=== PATIENT | male | born 1955 | race Caucasian/White ===

== ENCOUNTER 2018-11-17 00:19 | Emergency (ER) | payer OTHER ==
[2018-11-17 00:44] VITALS: TEMP 98.3; BMI 26.6
--- NOTE | 2018-11-17 00:52 | PDOC ---
Attending Attestation - Resident Resident Name: Lianet Cox - ED Attending Attestation I have performed the following: I have examined & evaluated the patient, The case was reviewed & discussed with the resident, I agree w/resident's findings & plan - HPI HPI: 11/17/18 02:14 see resident hpi - Physicial Exam PE: 11/17/18 02:14 GENERAL: Awake, in no acute distress HEAD: No signs of trauma EYES: ENT:clear without exudates. Moist mucosa NECK: Normal ROM, LUNGS:. end expiratory wheezing b/l with dim air entry HEART: Regular rate and rhythm, ABDOMEN: Soft, nondistended CHEST WALL: BACK: No midline tenderness. EXTREMITIES:. No erythema, or tenderness NEUROLOGICAL: Alert, SKIN: Warm, Dry - Medical Decision Making 11/17/18 02:16 63-year-old male with shortness of breath Exam suggestive of COPD exacerbation Patient offered labs, chest x-ray, nebulizer treatments as well as steroids Patient refused adamantly multiple times after multiple attempts were made by staff to insert IV and continue with care plan He will be signing out AGAINST MEDICAL ADVICE, he is awake alert oriented times foreign able to communicate his needs He is currently ambulating around the nurse's station asking where the soda machine is
--- NOTE | 2018-11-17 01:00 | PDOC ---
History of Present Illness - General Chief Complaint: Shortness of Breath Stated Complaint: DIFFICULTY BREATHING Time Seen by Provider: 11/17/18 00:43 - History of Present Illness Initial Comments: 11/17/18 02:37 63yo undomiciled M hx COPD and smoking noncompliant with medications presents c/ o acute on chronic shortness of breath. Pt states he's on advair and nebulizers but ran out of all his medications a while ago. Pt states he recently moved to the area and is staying in a [facility]. Denies PCP. Pt states he was in another hospital 2 months ago admitted for bronchitis for a few days and treated for bronchitis with antibiotics and prednisone, which he completed, but he never felt better. Pt c/o continued shortness of breath and wheezing since then, unchanged, worse with coughing. Then 2 days ago pt states he developed a cough productive of green phlegm and mucus, no blood, that's become worse so pt came in. Pt wants steroids, antibiotics, and all his nebulizers. Denies fever, chills , fatigue, headache, dizziness, numbness/tingling, weakness, vision changes, chest pain, palpitations, leg swelling, abdominal pain, blood in stool, diarrhea , constipation, nausea, vomiting, dysuria, hematuria, confusion. Past History - Past Medical History Allergies/Adverse Reactions: Allergies Allergy/AdvReac Type Severity Reaction Status Date / Time Penicillins Allergy Severe Hives Verified 11/17/18 00:39 morphine Allergy Intermediate Vomiting Verified 11/17/18 00:39 Home Medications: Ambulatory Orders Albuterol Sulfate [Proair Hfa -] 1 - 2 inh PO TID PRN 08/18/12 Allopurinol [Zyloprim -] 100 mg PO BID 08/18/12 Divalproex [Depakote -] 500 mg PO DAILY 08/18/12 Perphenazine 8 mg PO HS 08/18/12 Aspirin 81 mg PO DAILY 08/19/12 Divalproex [Depakote -] 1,000 mg PO HS 08/19/12 Esomeprazole Mag Trihydrate [Nexium] 20 mg PO DAILY 08/19/12 Oxycodone HCl/Acetaminophen [Percocet 5-325 mg Tablet] 1 - 2 tab PO PRN PRN #0 tablet 08/19/12 Salmeterol/Fluticasone [Advair 500Mcg/50Mcg -] 1 inh IH DAILY 08/19/12 Tiotropium [place] [Spiriva] 1 inh IH DAILY 08/19/12 Anemia: No Asthma: Yes Cancer: No Cardiac Disorders: No CVA: No COPD: Yes CHF: No Dementia: No Diabetes: No GI Disorders: No Disorders: No HTN: No Hypercholesterolemia: No Liver Disease: No Seizures: No Thyroid Disease: No - Surgical History Abdominal Surgery: No Cardiac Surgery: No Cholecystectomy: No Lung Surgery: No Neurologic Surgery: No Orthopedic Surgery: No - Suicide/Smoking/Psychosocial Hx Smoking History: Current every day smoker Have you smoked in the past 12 months: Yes Number of Cigarettes Smoked Daily: 20 Cigars Per Day: 3 Information on smoking cessation initiated: No 'Breaking Loose' booklet given: 08/19/12 Hx Alcohol Use: No Drug/Substance Use Hx: No Substance Use Type: None Hx Substance Use Treatment: No Review of Systems - Review of Systems Comments:: 11/17/18 02:37 Constitutional: Negative for chills, fever, fatigue. HENT: Negative for sore throat, rhinorrhea, congestion. Eyes: Negative for visual disturbance. Respiratory: Positive for shortness of breath, cough, and wheezing. Cardiovascular: Negative for chest pain, palpitations, and leg swelling. Gastrointestinal: Negative for abdominal pain, blood in stool, constipation, diarrhea, nausea, and vomiting. Genitourinary: Negative for dysuria, flank pain, and hematuria. Musculoskeletal: Negative for myalgias, back pain, and neck pain. Skin: Negative for rash. Neurological: Negative for light-headedness, dizziness, syncope, weakness, numbness and headaches. Psychiatric/Behavioral: Negative for behavioral problems and confusion. *Physical Exam - Vital Signs Last Vital Signs Temp Pulse Resp BP Pulse Ox 98.3 F 102 H 20 118/71 98 11/17/18 00:39 11/17/18 00:39 11/17/18 00:39 11/17/18 00:39 11/17/18 00:39 - Physical Exam Comments: 11/17/18 02:37 Gen: Alert, NAD, comfortable-appearing HEENT: PERRL, EOMI, MMM, NCAT. No conjunctival pallor. Sclera are non-icteric. CV: Regular rate and rhythm. No murmurs, rubs, or gallops. PULM: No resp distress. +b/l end-expiratory wheezing, no crackles or rales. ABD: soft, NT/ND, no rebound tenderness or guarding, no CVA tenderness. BACK: No TTP of c/t/l-spine. No step-offs or deformities. MSK: No bony deformities. 2+ pulses in all extremities. NEURO: AAOx3. PERRL. No gross CN deficits. Strength and sensation grossly intact throughout. EXTREMITIES: No cyanosis. No clubbing. No edema. No calf tenderness. PSYCH: Normal mood and thought pattern. SKIN: Warm and dry. Normal capillary refill. No rashes. No jaundice. Heart Score/ECG Review - ECG Impressions Comment:: 11/17/18 02:25 0040: NSR, 99bpm, QTc 464ms, VA interval 148ms, QRS duration 108ms, LAD, no TWIs , no ST elevations or depression, +Q waves in leads II/III. No significant changes compared to 07/13/12. Medical Decision Making - Medical Decision Making 11/17/18 02:37 63yo undomiciled M hx COPD and smoking noncompliant with medications presents with acute on chronic shortness of breath and wheezing, and 2 days of productive cough. Per pt, last hospitalization 2 months ago for bronchitis, treated with abx and prednisone. Hemodynamically stable, tachycardic to 102, afebrile, end-expiratory wheezing on exam. High concern for COPD exacerbation due to wheezing and hx - nebulizers, steroids, labs, CXR. Also concern for PNA due to productive cough, though no crackles on exam - r/o with CXR and labs. Lower concern for ACS/AL or CHF due to lack of hx of cardiac issues and lack of chest pain, but r/o with EKG, cardiac profile, and BNP. Pre-trop HEART score 2 ( age and smoking). Very low concern for PE due to hx, lack of CP, and Wheezing, Wells 0, PERC not neg due to age - no further testing indicated at this time, but if everything else negative, reconsider. -Duonebs -Methylprednisone -EKG -CXR -CBC, CMP, Cardiac profile, BNP -Dispo: pending w/u and reassessment IV attempted multiple times by nursing staff. Pt refuses any more IVs. I spoke with pt about importance of tests and he agreed to let me try. Attempted IV but pt moved and came out. Pt refused any more attempts. Pt refuses any more IV attempts or x-ray or treatments here. Pt refusing care, including drawing blood and chest x-ray. Discussion at the bedside with patient. Pt has capacity to make medical decisions. I believe this patient is of sound mind and competent to refuse medical care. The patient is responding and asking questions appropriately. The patient is oriented to person , place and time. The patient is not psychotic, delusional, suicidal, homicidal or hallucinating. The patient demonstrates a normal mental capacity to make decisions regarding their healthcare. The patient is clinically sober and does not appear to be under the influence of any illicit drugs at this time. The patient has been advised of the risks, in layman terms, of leaving AMA which include, but are not limited to cardiac arrest, severe infection, blood stream infection, dehydration, bleeding, liver failure, myocardial infarction, arrhythmia, stroke, carotid stenosis/aneurysm/dissection, pulmonary embolism, respiratory failure, delay in diagnosis and management, loss of current lifestyle, loss of functional status, multiorgan failure, coma, severe disability and . Alternatives have been offered - the patient remains steadfast in their wish to leave. The patient has been advised that should they change their mind they are welcome to return to this hospital, or any other, at any time. The patient understands that in no way does an AMA discharge mean that I do not want them to have the best medical care available. To this end, I have provided appropriate referrals and discharge instructions. The patient did sign AMA paperwork. The above discussion was witnessed by another member of staff, BLAKE Handy. *DC/Admit/Observation/Transfer Diagnosis at time of Disposition: COPD exacerbation - Discharge Dispostion Disposition: AGAINST MEDICAL ADVICE Condition at time of disposition: Stable Decision to Admit order: No - Referrals Referrals: [facility] [place] [Provider Group] - Patient Instructions Printed Discharge Instructions: DI for Chronic Obstructive Pulmonary Disease Additional Instructions: You have been seen in the Emergency Department for your cough. We need to do a chest X-ray and take blood to properly evaluation your condition. We have discussed this with you but you want to leave against medical advice (AMA) prior to proper evaluation, diagnosis, and treatment. You have capacity to make medical decisions. I believe you are of sound mind and competent to refuse medical care. You are responding and asking questions appropriately. You are oriented to person, place and time. You are not psychotic, delusional, suicidal , homicidal or hallucinating. You demonstrate a normal mental capacity to make decisions regarding your healthcare. You are clinically sober and do not appear to be under the influence of any illicit drugs at this time. You have been advised of the risks, in layman terms, of leaving AMA which include, but are not limited to worsening of your COPD, cardiac arrest (heart stopping), respiratory failure (lungs stopping/stopping breathing), severe infection, blood stream infection, dehydration, bleeding, liver failure, myocardial infarction (heart attack), arrhythmia (abnormal heart rhythm), stroke, carotid stenosis/aneurysm/dissection, pulmonary embolism (clot in your lungs), delay in diagnosis and management, loss of current lifestyle, loss of functional status, multiorgan failure, coma, severe disability and . Alternatives have been offered - you remain steadfast in your wish to leave. You have been advised that should you change your mind you are welcome to return to this hospital, or any other, at any time. You understand that in no way does an AMA discharge mean that I do not want you to have the best medical care available. To this end , I have provided appropriate prescriptions, referrals, and discharge instructions. You did sign AMA paperwork. We have given you a referral to a primary care clinic - call them to set up an appointment with a primary care doctor within 1 week. Return to the ED immediately if you want to complete your evaluation or if you experience chest pain, difficulty breathing, dizziness, fainting, fever, coughing up blood, or any other new or worsening symptom. - Post Discharge Activity
[2018-11-17] MEDS ORDERED: methylPREDNISolone NA SUCC 125 MG/2 ML VIAL IVPB ONE (01:08)
[2018-11-17] MEDS ORDERED: ALBUTEROL SO4 2.5/IPRATROPIUM 0.5 INH SOL 3 ML VIAL.NEB. NEB ONE (01:08)
[2018-11-17] MEDS ORDERED: IPRATROPIUM BR 0.02% 0.5 MG/2.5 ML VIAL.NEB. NEB ONE (01:13)
[2018-11-17] MEDS ORDERED: methylPREDNISolone NA SUCC 40 MG/1 ML VIAL ONE (01:13)
[2018-11-17] MEDS ORDERED: ALBUTEROL SO4 0.083% IH SOL 2.5 MG/3 ML VIAL.NEB. NEB ONE (01:13)
[2018-11-17 02:07] VITALS: BP 123/88; PULSE 95
--- NOTE | 2018-11-17 12:43 | EKG ---
Test Reason : Blood Pressure : / mmHG Vent. Rate : 099 BPM Atrial Rate : 099 BPM P-R Int : 148 ms QRS Dur : 108 ms QT Int : 362 ms P-R-T Axes : 054 -68 087 degrees QTc Int : 464 ms NORMAL SINUS RHYTHM LEFT AXIS DEVIATION INFERIOR INFARCT , AGE UNDETERMINED ANTERIOR INFARCT , AGE UNDETERMINED ABNORMAL ECG NO PREVIOUS ECGS AVAILABLE Confirmed by Darron Stewart MD ([id number]) on 11/17/2018 12:42:48 PM Referred By: Confirmed By:Darron Stewart MD
== END 2018-11-17 02:37 | disposition left against medical advice (07) ==
LOC: JER 00:19
PROC: 3E0F7GC Introduction of Other Therapeutic Substance into Respiratory Tract, Via Natural or Artificial Opening (ICD-10-PCS; principal; 2018-11-17)
DX: J44.1 Chronic obstructive pulmonary disease with (acute) exacerbation (principal)
CPT/HCPCS: 93005; 93010; 94640; 99282-25

== ENCOUNTER 2018-11-24 12:04 | Emergency (ER) | payer OTHER ==
[2018-11-24 12:31] VITALS: BP 111/60; PULSE 75; TEMP 98.6; BMI 22.4
--- NOTE | 2018-11-24 13:01 | PDOC ---
History of Present Illness - General Chief Complaint: Cold Symptoms Stated Complaint: COUGH/ABD PAIN LWR RT QUAD X 4 WKS Time Seen by Provider: 11/24/18 12:58 History Source: Patient - History of Present Illness Timing/Duration: reports: other Associated Symptoms: reports: cough Past History - Past Medical History Allergies/Adverse Reactions: Allergies Allergy/AdvReac Type Severity Reaction Status Date / Time Penicillins Allergy Severe Hives Verified 11/24/18 12:31 morphine Allergy Intermediate Vomiting Verified 11/24/18 12:31 Home Medications: Ambulatory Orders Albuterol Sulfate [Proair Hfa -] 1 - 2 inh PO TID PRN 08/18/12 Allopurinol [Zyloprim -] 100 mg PO BID 08/18/12 Divalproex [Depakote -] 500 mg PO DAILY 08/18/12 Perphenazine 8 mg PO HS 08/18/12 Aspirin 81 mg PO DAILY 08/19/12 Divalproex [Depakote -] 1,000 mg PO HS 08/19/12 Esomeprazole Mag Trihydrate [Nexium] 20 mg PO DAILY 08/19/12 Oxycodone HCl/Acetaminophen [Percocet 5-325 mg Tablet] 1 - 2 tab PO PRN PRN #0 tablet 08/19/12 Salmeterol/Fluticasone [Advair 500Mcg/50Mcg -] 1 inh IH DAILY 08/19/12 Tiotropium [place] [Spiriva] 1 inh IH DAILY 08/19/12 Anemia: No Asthma: Yes Cancer: No Cardiac Disorders: No CVA: No COPD: Yes CHF: No Dementia: No Diabetes: No GI Disorders: No Disorders: No HTN: No Hypercholesterolemia: No Liver Disease: No Seizures: No Thyroid Disease: No - Surgical History Abdominal Surgery: No Cardiac Surgery: No Cholecystectomy: No Lung Surgery: No Neurologic Surgery: No Orthopedic Surgery: No - Suicide/Smoking/Psychosocial Hx Smoking History: Never smoked Have you smoked in the past 12 months: No Number of Cigarettes Smoked Daily: 20 Cigars Per Day: 3 Information on smoking cessation initiated: No 'Breaking Loose' booklet given: 08/19/12 Hx Alcohol Use: No Drug/Substance Use Hx: No Substance Use Type: None Hx Substance Use Treatment: No Review of Systems - Review of Systems Constitutional: No: Chills, Fever Respiratory: Yes: Cough. No: Shortness of Breath, Wheezing Cardiac (ROS): No: Chest Pain ABD/GI: No: Blood Streaked Bowels, Constipated, Diarrhea, Nausea, Rectal Bleeding, Vomiting, Abdominal cramping : No: Dysuria *Physical Exam - Vital Signs Last Vital Signs Temp Pulse Resp BP Pulse Ox 98.6 F 75 16 111/60 98 11/24/18 12:21 11/24/18 12:21 11/24/18 12:21 11/24/18 12:21 11/24/18 12:21 - Physical Exam General Appearance: Yes: Appropriately Dressed. No: Apparent Distress HEENT: positive: Normal Voice Neck: positive: Supple Respiratory/Chest: positive: Lungs Clear, Normal Breath Sounds. negative: Respiratory Distress Cardiovascular: positive: Regular Rate, S1, S2 Gastrointestinal/Abdominal: positive: Soft. negative: Tender Integumentary: positive: Dry, Warm Neurologic: positive: Fully Oriented, Alert, Normal Mood/Affect ED Treatment Course - LABORATORY CBC & Chemistry Diagram: 11/24/18 13:30 11/24/18 13:30 Medical Decision Making - Medical Decision Making 0 11/17/18 02:37 63 her old male, history of COPD, not on oxygen, still smokes, non-compliant with follow up, anemia, no h/o blood transfusion, here with cough. Patient states for the past 8 months have had a mostly nonproductive cough and that for the past week has severe right-sided abd pain only when he coughs. Denies any hemoptysis, acute shortness of breath, chest tightness, wheezing, fever, chills or edema. Pt was seen in ED a week ago for shortness of breath and wheezing but refused care, including blood draw and chest x-ray, signed out AMA. Here because pain persists. Patient refuses any nebulizers today. States he uses several pumps at home including Advair and that they do not work. Patient has a power truck driver in [facility] who he no longer wants to see as he is unhappy with care because, as per patient "He told me to quit smoking". Patient adamant that he does not wants a power truck driver. Currently does not have a PMD, but looking to get new doctor in [place] See exam Chronic cough, now w/ abd pain only w/ cough H/o COPD, not on oxygen No acute sob/wheezing/CP, f/c Refused care in ED 11/17 Stable w/ clear chest/lungs and benign abd here -consent to labs/CXR -declines nebulizer here 11/24/18 13:52 Pt walked out to ED while waiting for labs and prior to discharge papers. Of note, CXR w/ no acute findings. *DC/Admit/Observation/Transfer Diagnosis at time of Disposition: Chronic cough - Discharge Dispostion Disposition: ELOPED - Referrals - Patient Instructions Additional Instructions: Your CXR did not show any acute findings today but there an an unclear finding in your right upper lung and you should strongly consider smoking cessation and following up with a power truck driver who your refuse referral for today. You also refused referral for a primary care doctor, please find a primary care physician to follow with Please know the ED at any point to continue care - Post Discharge Activity
[2018-11-24] MEDS ORDERED: KETOROLAC TROMETHAMINE 60 MG/2 ML VIAL IM ONE (13:09)
[2018-11-24] MEDS ORDERED: predniSONE 20 MG TABLET (UD) PO ONE (13:09)
[2018-11-24] MEDS ORDERED: KETOROLAC TROMETHAMINE 60 MG/2 ML VIAL ONE (13:22)
[2018-11-24] MEDS ORDERED: predniSONE 20 MG TABLET (UD) ONE (13:22)
[2018-11-24 14:01] LABS: BASO % 0.1 % (0-2.0); HEMATOCRIT 27.2 % (35.4-49); MCH 33.1 pg (25.7-33.7); MCHC 32.9 g/dl (32.0-35.9); MEAN CELL VOLUME 100.5 fl (80-96); MEAN PLT VOLUME 8.5 fl (7.5-11.1); MONO % 6.4 % (3.8-10.2); NEUT % 78.5 % (42.8-82.8); PLATELET COUNT 293 K/MM3 (134-434); RBC 2.71 M/mm3 (4.00-5.60); RDW 16.1 % (11.9-15.9); WHITE BLOOD COUNT 9.3 K/mm3 (4.0-10.0)
[2018-11-24 14:39] LABS: ALBUMIN 2.6 g/dl (3.4-5.0); BILIRUBIN,TOTAL 0.3 mg/dL (0.2-1); BLOOD UREA NITROGEN 16.7 mg/dL (7-18); CALCIUM 8.2 mg/dL (8.5-10.1); CREATININE 2.4 mg/dL (0.55-1.3); POTASSIUM 3.7 mmol/L (3.5-5.1); TOT PROT 5.6 g/dl (6.4-8.2)
== END 2018-11-24 14:45 | disposition home or self-care (01) ==
LOC: JER 12:04
PROC: 3E0233Z Introduction of Anti-inflammatory into Muscle, Percutaneous Approach (ICD-10-PCS; principal; 2018-11-24)
DX: R05 Cough (principal); J44.9 Chronic obstructive pulmonary disease, unspecified; D64.9 Anemia, unspecified; F17.210 Nicotine dependence, cigarettes, uncomplicated
CPT/HCPCS: 36415; 71046-TC-FY; 80053; 85025; 96372; 99282-25

== ENCOUNTER 2019-03-12 12:03 | Emergency (ER) | payer OTHER ==
[2019-03-12 12:12] VITALS: BP 136/81; PULSE 98; TEMP 98; BMI 21.1
[2019-03-12] MEDS ORDERED: KETOROLAC TROMETHAMINE 30 MG/1 ML VIAL IM ONE (13:13)
--- NOTE | 2019-03-12 13:13 | PDOC ---
History of Present Illness - General Chief Complaint: Pain Stated Complaint: LT GROIN PAIN Time Seen by Provider: 03/12/19 12:46 - History of Present Illness Initial Comments: 03/12/19 13:08 CHIEF COMPLAINT: groin pain HISTORY OF PRESENT ILLNESS: 63 yo M with hx of COPD and L groin hernia presents to ED with left groin pain x months. Patient reports that he was discharged from [facility] this morning for COPD exacerbation and he "walked from [place] to [place]" and now feels pain to his groin again. He states he has been evaluated by "like six different hospitals in [place] for my groin pain and they all say it's a hernia, I'm in the process my money together" for the inguinal hernia repair he has scheduled in March. He denies any skin changes to left groin and states he is fully ambulatory and just came to the hospital because "I couldn't walk anymore, so I want to get a Medicab to get to where I need to go tonight." No recent travel or sick contacts. PAST MEDICAL HISTORY: Denies past medical history FAMILY HISTORY: Denies SOCIAL HISTORY: Denies tobacco, alcohol, illicit drug use. SURGICAL HISTORY: Denies ALLERGIES: No known drug allergies REVIEW OF SYSTEMS General/Constitutional: Denies fever or chills. Denies weakness, weight change. HEENT: Denies change in vision. Denies ear pain or discharge. Denies sore throat. Cardiovascular: Denies chest pain or shortness of breath. Respiratory: Denies cough, wheezing, or hemoptysis. Gastrointestinal: Denies nausea, vomiting, diarrhea or constipation. Denies rectal bleeding. Genitourinary: Chronic left groin pain secondary to inguinal hernia. Denies dysuria, frequency, or change in urination. Musculoskeletal: Denies joint or muscle swelling or pain. Denies neck or back pain. Skin and breasts: Denies rash or easy bruising. Neurologic: Denies headache, vertigo, loss of consciousness, or loss of sensation. Psychiatric: Denies depression or anxiety. PHYSICAL EXAM General Appearance: Well-appearing, appropriately dressed. No apparent distress , no intoxication. HEENT: EOMI, PERRLA, normal ENT inspection, normal voice, TMs normal, pharynx normal. No conjunctival pallor. No photophobia, scleral icterus. Neck: Supple. Trachea midline. No tenderness, rigidity, carotid bruit, stridor , lymphadenopathy, or thyromegaly. Respiratory/Chest: Lungs CTAB. No shortness of breath, chest tenderness, respiratory distress, accessory muscle use. No crackles, rales, rhonchi, stridor , wheezing, dullness Cardiovascular: RRR. S1, S2. No JVD, murmur, bradycardia, tachycardia. Gastrointestinal/Abdominal: Normal bowel sounds. Abdomen soft, non-distended. No tenderness or rebound tenderness. No organomegaly, pulsatile mass, guarding , hernia, hepatomegaly, splenomegaly. Lymphatic: No adenopathy, tenderness. Musculoskeletal/Extremities: Normal inspection. FROM of all extremities, normal capillary refill. Pelvis Stable. No CVA tenderness. No tenderness to extremities, pedal edema, swelling, erythema or deformity. Integumentary: Appropriate color, dry, warm. No cyanosis, erythema, jaundice or rash Neurologic: transit coach operator II-XII intact. Fully oriented, alert. Appropriate mood/affect. Motor strength 5/5. No appreciable EOM palsy, facial droop or sensory deficit. Past History - Past Medical History Allergies/Adverse Reactions: Allergies Allergy/AdvReac Type Severity Reaction Status Date / Time Penicillins Allergy Severe Hives Verified 03/12/19 12:12 morphine Allergy Intermediate Vomiting Verified 03/12/19 12:12 Home Medications: Ambulatory Orders Albuterol Sulfate [Proair Hfa -] 1 - 2 inh PO TID PRN 08/18/12 Allopurinol [Zyloprim -] 100 mg PO BID 08/18/12 Divalproex [Depakote -] 500 mg PO DAILY 08/18/12 Perphenazine 8 mg PO HS 08/18/12 Aspirin 81 mg PO DAILY 08/19/12 Divalproex [Depakote -] 1,000 mg PO HS 08/19/12 Esomeprazole Mag Trihydrate [Nexium] 20 mg PO DAILY 08/19/12 Oxycodone HCl/Acetaminophen [Percocet 5-325 mg Tablet] 1 - 2 tab PO PRN PRN #0 tablet 08/19/12 Salmeterol/Fluticasone [Advair 500Mcg/50Mcg -] 1 inh IH DAILY 08/19/12 Tiotropium [place] [Spiriva] 1 inh IH DAILY 08/19/12 Anemia: No Asthma: Yes Cancer: No Cardiac Disorders: No CVA: No COPD: Yes CHF: No Dementia: No Diabetes: No GI Disorders: No Disorders: No HTN: No Hypercholesterolemia: No Liver Disease: No Seizures: No Thyroid Disease: No Other medical history: PROSTATE - Surgical History Abdominal Surgery: No Cardiac Surgery: No Cholecystectomy: No Lung Surgery: No Neurologic Surgery: No Orthopedic Surgery: No - Psycho Social/Smoking Cessation Hx Smoking History: Never smoked Have you smoked in the past 12 months: No Number of Cigarettes Smoked Daily: 20 Cigars Per Day: 3 'Breaking Loose' booklet given: 08/19/12 Hx Alcohol Use: No Drug/Substance Use Hx: No Substance Use Type: None Hx Substance Use Treatment: No *Physical Exam - Vital Signs Last Vital Signs Temp Pulse Resp BP Pulse Ox 98 F 98 H 18 136/81 100 03/12/19 12:07 03/12/19 12:07 03/12/19 12:07 03/12/19 12:07 03/12/19 12:07 Medical Decision Making - Medical Decision Making 03/12/19 13:44 63 yo M with hx of COPD and L groin hernia presents to ED with left groin pain x months. -Toradol Advised to follow up with PCP and to keep inguinal hernia repair appt as scheduled. Advised patient of signs and symptoms for return to ED. Patient verbalized understanding and agrees to plan. Discharge - Discharge Information Problems reviewed: Yes Clinical Impression/Diagnosis: Groin pain, chronic, left Condition: Stable Disposition: HOME - Admission No - Follow up/Referral Referrals: Cherry Newton MD [Primary Care Provider] - - Patient Discharge Instructions Patient Printed Discharge Instructions: DI for Groin Hernia - Post Discharge Activity
[2019-03-12] MEDS ORDERED: KETOROLAC TROMETHAMINE 30 MG/1 ML VIAL ONE (13:14)
== END 2019-03-12 14:06 | disposition home or self-care (01) ==
LOC: JER 12:03
PROC: 3E0233Z Introduction of Anti-inflammatory into Muscle, Percutaneous Approach (ICD-10-PCS; principal; 2019-03-12)
DX: K40.90 Unilateral inguinal hernia, without obstruction or gangrene, not specified as recurrent (principal); R10.32 Left lower quadrant pain; J44.9 Chronic obstructive pulmonary disease, unspecified; J45.998 Other asthma; Z85.46 Personal history of malignant neoplasm of prostate; Z88.0 Allergy status to penicillin; Z88.5 Allergy status to narcotic agent
CPT/HCPCS: 96372; 99281-25

== ENCOUNTER 2019-04-18 15:45 | Emergency (ER) | payer OTHER ==
[2019-04-18 15:58] VITALS: BMI 23.0
--- NOTE | 2019-04-18 16:24 | PDOC ---
History of Present Illness - General Chief Complaint: Pain Stated Complaint: PAIN Time Seen by Provider: 04/18/19 16:23 History Source: Patient Exam Limitations: No Limitations - History of Present Illness Initial Comments: 04/18/19 16:25 63 yo M with PMHx COPD, CKD, gout, L inguinal hernia (last 1.5yrs) presenting w SOB and intermittent L groin pain worse w exertion. Scheduled pre-op clearance for hernia repair on 04/18/19. Ran out of money for meds, has not been taking any meds. Denies fever, chest pain, penile discharge/bleeding, urinary frequency, pyuria, diarrhea. Past History - Past Medical History Allergies/Adverse Reactions: Allergies Allergy/AdvReac Type Severity Reaction Status Date / Time Penicillins Allergy Severe Hives Verified 04/18/19 15:59 morphine Allergy Intermediate Vomiting Verified 04/18/19 15:59 Home Medications: Ambulatory Orders Albuterol Sulfate [Proair Hfa -] 1 - 2 inh PO TID PRN 08/18/12 Allopurinol [Zyloprim -] 100 mg PO BID 08/18/12 Divalproex [Depakote -] 500 mg PO DAILY 08/18/12 Perphenazine 8 mg PO HS 08/18/12 Aspirin 81 mg PO DAILY 08/19/12 Divalproex [Depakote -] 1,000 mg PO HS 08/19/12 Esomeprazole Mag Trihydrate [Nexium] 20 mg PO DAILY 08/19/12 Oxycodone HCl/Acetaminophen [Percocet 5-325 mg Tablet] 1 - 2 tab PO PRN PRN #0 tablet 08/19/12 Salmeterol/Fluticasone [Advair 500Mcg/50Mcg -] 1 inh IH DAILY 08/19/12 Tiotropium [place] [Spiriva] 1 inh IH DAILY 08/19/12 Anemia: No Asthma: Yes Cancer: No Cardiac Disorders: No CVA: No COPD: Yes CHF: No Dementia: No Diabetes: No GI Disorders: No Disorders: No HTN: No Hypercholesterolemia: No Liver Disease: No Seizures: No Thyroid Disease: No - Surgical History Abdominal Surgery: No Cardiac Surgery: No Cholecystectomy: No Lung Surgery: No Neurologic Surgery: No Orthopedic Surgery: No - Psycho Social/Smoking Cessation Hx Smoking History: Current every day smoker Have you smoked in the past 12 months: No Number of Cigarettes Smoked Daily: 20 Cigars Per Day: 3 Information on smoking cessation initiated: No 'Breaking Loose' booklet given: 08/19/12 Hx Alcohol Use: No Drug/Substance Use Hx: No Substance Use Type: None Hx Substance Use Treatment: No Review of Systems - Review of Systems Constitutional: No: Chills, Fever HEENTM: No: Eye Pain, Nose Pain, Throat Pain Respiratory: Yes: Shortness of Breath, Wheezing. No: Cough Cardiac (ROS): No: Chest Pain, Palpitations ABD/GI: No: Abdominal Distended, Constipated, Diarrhea, Nausea, Vomiting : Yes: Other (groin mass). No: Burning, Dysuria, Discharge, Testicular Mass Musculoskeletal: No: Back Pain, Joint Pain Integumentary: No: Bruising, Flushing Neurological: No: Headache, Seizure, Tingling Psychiatric: No: Anxiety, Depression Endocrine: No: Intolerance to Cold, Intolerance to Heat Hematologic/Lymphatic: No: Anemia, Blood Clots *Physical Exam - Vital Signs Last Vital Signs Temp Pulse Resp BP Pulse Ox 98.3 F 97 H 18 132/67 97 04/18/19 15:56 04/18/19 15:56 04/18/19 15:56 04/18/19 15:56 04/18/19 15:56 - Physical Exam General Appearance: Yes: Nourished, Appropriately Dressed. No: Apparent Distress HEENT: positive: EOMI, LEIGH, Normal Voice, Hearing Grossly Normal. negative: Scleral Icterus (R), Scleral Icterus (L) Respiratory/Chest: positive: Wheezing. negative: Chest Tender, Respiratory Distress, Crackles, Rales, Rhonchi, Stridor Cardiovascular: positive: Regular Rhythm, Regular Rate, S1, S2 Gastrointestinal/Abdominal: positive: Normal Bowel Sounds, Flat, Soft. negative : Tender, Organomegaly Male Genitalia: positive: normal genitalia, inguinal hernia (L hernia, reduceable). negative: discharge, testicular mass, hematuria Musculoskeletal: negative: CVA Tenderness (R), CVA Tenderness (L) Extremity: positive: Normal Capillary Refill Integumentary: positive: Normal Color Neurologic: positive: cutter tender II-XII NML intact, Fully Oriented, Alert, Normal Mood/ Affect, Normal Response, Responsive. negative: Sensory Deficit, Confused, Disoriented Medical Decision Making - Medical Decision Making 04/18/19 17:08 CXR no acute pathology, unchanged chronic RUL opacitis --- 63 yo M with PMHx COPD, CKD, gout, L inguinal hernia (last 1.5yrs) presenting w SOB and intermittent L groin pain worse w exertion. SOB d/t COPD exacerbation (wheezing). Inguinal hernia not obstructed or strangulated. Low concern for PNA (no acute consolidation/infiltrates) Given duoneb x4, decadron, tylenol DC home Discharge - Discharge Information Problems reviewed: Yes Clinical Impression/Diagnosis: COPD exacerbation Inguinal hernia Qualifiers: Obstruction and gangrene presence: without obstruction or gangrene Laterality: unilateral Recurrence: recurrent Qualified Code(s): K40.91 - Unilateral inguinal hernia, without obstruction or gangrene, recurrent Condition: Improved Disposition: HOME - Follow up/Referral Referrals: Cherry Newton MD [Primary Care Provider] - - Patient Discharge Instructions Patient Printed Discharge Instructions: DI for Chronic Obstructive Pulmonary Disease Additional Instructions: Follow up with your primary care doctor. Take tylenol if you have pain - Post Discharge Activity
[2019-04-18] MEDS ORDERED: DEXAMETHASONE SOD PHOSPHATE 10 MG/1 ML VIAL IM ONE (17:03)
[2019-04-18] MEDS ORDERED: ACETAMINOPHEN 500 MG TABLET (FP) PO ONE (17:03)
[2019-04-18] MEDS ORDERED: ALBUTEROL SO4 2.5/IPRATROPIUM 0.5 INH SOL 3 ML VIAL.NEB. NEB ONE ×3 (17:05→17:23)
[2019-04-18] MEDS ORDERED: ACETAMINOPHEN 325 MG TABLET (FP) ONE (17:05)
[2019-04-18] MEDS ORDERED: DEXAMETHASONE SOD PHOSPHATE 10 MG/1 ML VIAL ONE (17:06)
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
[2019-04-18] MEDS ORDERED: DEXAMETHASONE 4 MG TABLET (FP) PO ONE (17:30)
[2019-04-18 18:50] VITALS: BP 133/76; PULSE 68; TEMP 98.5
[2019-04-18] MEDS ORDERED: ALBUTEROL SO4 2.5/IPRATROPIUM 0.5 INH SOL 3 ML VIAL.NEB. NEB SCH (20:00)
== END 2019-04-18 18:49 | disposition home or self-care (01) ==
LOC: SUPCPDRO 15:45 → JER 15:45
PROC: 3E0F7GC Introduction of Other Therapeutic Substance into Respiratory Tract, Via Natural or Artificial Opening (ICD-10-PCS; principal; 2019-04-18)
DX: J44.1 Chronic obstructive pulmonary disease with (acute) exacerbation (principal); K40.91 Unilateral inguinal hernia, without obstruction or gangrene, recurrent; J45.909 Unspecified asthma, uncomplicated; M10.9 Gout, unspecified; N18.9 Chronic kidney disease, unspecified; Z88.0 Allergy status to penicillin; Z88.5 Allergy status to narcotic agent; F17.210 Nicotine dependence, cigarettes, uncomplicated
CPT/HCPCS: 71046-TC-FY; 94640; 99281-25

== ENCOUNTER 2019-04-21 08:43 | Emergency (ER) | payer OTHER ==
[2019-04-21 08:51] VITALS: BP 139/76; TEMP 97.7; BMI 22.7
--- NOTE | 2019-04-21 09:10 | PDOC ---
*Physical Exam - Vital Signs Last Vital Signs Temp Pulse Resp BP Pulse Ox 97.7 F 104 H 32 H 139/76 99 04/21/19 08:46 04/21/19 08:46 04/21/19 08:46 04/21/19 08:46 04/21/19 08:46 - Physical Exam 04/21/19 09:10 The patient was examined by [ZACHARIAH Rasmussen] under my direct supervision. I personally evaluated the patient. I concur with the above findings and the plan of care. Discharge - Discharge Information Problems reviewed: Yes Clinical Impression/Diagnosis: COPD (chronic obstructive pulmonary disease) Qualifiers: COPD type: unspecified COPD Qualified Code(s): J44.9 - Chronic obstructive pulmonary disease, unspecified Condition: Improved Disposition: HOME - Follow up/Referral Referrals: Cherry Newton MD [Primary Care Provider] - - Patient Discharge Instructions Patient Printed Discharge Instructions: DI for Chronic Obstructive Pulmonary Disease Additional Instructions: Your insurance company and find participating surgeons. I also recommend continue your medication that was prescribed to you yesterday for your COPD exacerbation. - Post Discharge Activity
[2019-04-21] MEDS ORDERED: ALBUTEROL SO4 2.5/IPRATROPIUM 0.5 INH SOL 3 ML VIAL.NEB. NEB ONE ×2 (09:47→09:59)
[2019-04-21] MEDS ORDERED: KETOROLAC TROMETHAMINE 60 MG/2 ML VIAL IM ONE (09:50)
--- NOTE | 2019-04-21 09:54 | PDOC ---
History of Present Illness - General Chief Complaint: Shortness of Breath Stated Complaint: SOB Time Seen by Provider: 04/21/19 08:58 History Source: Patient Exam Limitations: No Limitations - History of Present Illness Initial Comments: 04/21/19 09:08 63-year-old male with history of COPD presents the ED to annual shortness of breath and wheezing. Patient states was seen here 2 days prior had a chest x- ray and was discharged. Patient states symptoms continued so had went to [facility] where he was admitted overnight given IV steroids treatments and discharged home with the same. Patient has no complaints of chest pain, palpitations and is requesting an breathing treatment with oxygen. Is this a multiple visit Asthma Patient?: No Timing/Duration: reports: intermittent Severity: reports: mild Possible Cause: Yes: frequent episodes Modifying Factors: improves with: activity Associated Symptoms: reports: shortness of breath, wheezing Past History - Travel Traveled outside of the country in the last 30 days: No Close contact w/someone who was outside of country & ill: No - Past Medical History Allergies/Adverse Reactions: Allergies Allergy/AdvReac Type Severity Reaction Status Date / Time Penicillins Allergy Severe Hives Verified 04/21/19 08:45 morphine Allergy Intermediate Vomiting Verified 04/21/19 08:45 Home Medications: Ambulatory Orders Albuterol Sulfate [Proair Hfa -] 1 - 2 inh PO TID PRN 08/18/12 Allopurinol [Zyloprim -] 100 mg PO BID 08/18/12 Oxycodone HCl/Acetaminophen [Percocet 5-325 mg Tablet] 1 - 2 tab PO PRN PRN #0 tablet 08/19/12 Salmeterol/Fluticasone [Advair 500Mcg/50Mcg -] 1 inh IH DAILY 08/19/12 Tiotropium [place] [Spiriva] 1 inh IH DAILY 08/19/12 Tamsulosin HCl [Flomax] 0.8 mg PO BID 04/21/19 Anemia: No Asthma: Yes Cancer: No Cardiac Disorders: No CVA: No COPD: Yes CHF: No Dementia: No Diabetes: No GI Disorders: No Disorders: No HTN: No Hypercholesterolemia: No Liver Disease: No Seizures: No Thyroid Disease: No - Surgical History Abdominal Surgery: No Cardiac Surgery: No Cholecystectomy: No Lung Surgery: No Neurologic Surgery: No Orthopedic Surgery: No - Psycho Social/Smoking Cessation Hx Smoking History: Current some day smoker Have you smoked in the past 12 months: No Number of Cigarettes Smoked Daily: 10 Cigars Per Day: 10 Information on smoking cessation initiated: No 'Breaking Loose' booklet given: 08/19/12 Hx Alcohol Use: No Drug/Substance Use Hx: No Substance Use Type: None Hx Substance Use Treatment: No Patient Lives Alone: No Respiratory Specific PMHX - Complaint Specific PMHX Other Respiratory History: copd Review of Systems - Review of Systems Able to Perform ROS?: Yes Constitutional: No: Symptoms Reported HEENTM: No: Symptoms Reported Respiratory: Yes: SOB with Exertion, Wheezing Cardiac (ROS): No: Symptoms Reported ABD/GI: No: Symptoms Reported : No: Symptoms Reported Musculoskeletal: No: Symptoms Reported Integumentary: No: Symptoms Reported Neurological: No: Symptoms reported Endocrine: No: Symptoms Reported Hematologic/Lymphatic: No: Symptoms Reported *Physical Exam - Vital Signs Last Vital Signs Temp Pulse Resp BP Pulse Ox 97.7 F 104 H 32 H 139/76 99 04/21/19 08:46 04/21/19 08:46 04/21/19 08:46 04/21/19 08:46 04/21/19 08:46 - Physical Exam General Appearance: Yes: Nourished, Appropriately Dressed. No: Apparent Distress HEENT: negative: Pale Conjunctivae Neck: positive: Supple Respiratory/Chest: positive: Accessory Muscle Use (Mild intercostal), Rapid RR, Wheezing (Expiratory to left). negative: Respiratory Distress Cardiovascular: positive: Regular Rhythm, Regular Rate (92 on monitor). negative: Murmur Extremity: positive: Normal Inspection Integumentary: positive: Normal Color, Warm, Moist Neurologic: positive: Motor Strength 5/5 (Ambulatory) Medical Decision Making - Medical Decision Making 04/21/19 09:53 Chief complaint: Patient complaining of intermittent shortness of breath since discharge yesterday from [facility]. Patient requesting a breathing treatment with oxygen. Patient also requesting Toradol since he has an inguinal hernia and is unrelieved with Tylenol and Motrin Exam: Patient with tachypnea at 34. Revitalized and heart rate at 92 with a respiration rate of 26 while in bed in room 12. Plan: DuoNeb and Toradol ordered patient requesting to leave immediately following medication I explained to patient I need to reassess him 04/21/19 10:53 Patient feeling better requesting to go home. Discharge - Discharge Information Problems reviewed: Yes Clinical Impression/Diagnosis: COPD (chronic obstructive pulmonary disease) Condition: Improved Disposition: HOME - Follow up/Referral Referrals: Cherry Newton MD [Primary Care Provider] - - Patient Discharge Instructions Patient Printed Discharge Instructions: DI for Chronic Obstructive Pulmonary Disease Additional Instructions: Your insurance company and find participating surgeons. I also recommend continue your medication that was prescribed to you yesterday for your COPD exacerbation. - Post Discharge Activity
[2019-04-21] MEDS ORDERED: KETOROLAC TROMETHAMINE 60 MG/2 ML VIAL ONE (10:00)
[2019-04-21 12:20] VITALS: PULSE 101
== END 2019-04-21 11:04 | disposition home or self-care (01) ==
LOC: JER 08:43
PROC: 3E0F7GC Introduction of Other Therapeutic Substance into Respiratory Tract, Via Natural or Artificial Opening (ICD-10-PCS; principal; 2019-04-21)
PROC: 3E0233Z Introduction of Anti-inflammatory into Muscle, Percutaneous Approach (ICD-10-PCS; 2019-04-21)
DX: J44.9 Chronic obstructive pulmonary disease, unspecified (principal); Z88.0 Allergy status to penicillin; Z88.6 Allergy status to analgesic agent
CPT/HCPCS: 99282-25

== ENCOUNTER 2019-04-22 20:44 | Emergency (ER) | payer OTHER ==
--- NOTE | 2019-04-22 21:08 | PDOC ---
Rapid Medical Evaluation Chief Complaint: Pain Time Seen by Provider: 04/22/19 21:05 Medical Evaluation: Allergies Allergy/AdvReac Type Severity Reaction Status Date / Time Penicillins Allergy Severe Hives Verified 04/21/19 08:45 morphine Allergy Intermediate Vomiting Verified 04/21/19 08:45 04/22/19 21:06 I have performed a brief in-person evaluation of this patient. The patient presents with a chief complaint of:called EMS to transport for groin pain\ has been her3e last 3 nights. Denies fevers. denies intox but has been agressive with garbled speech. Pertinent physical exam findings: slid from chair to floor in triage- no LOC and responsive but uncooperative. I have ordered the following: taken to main ER for eval AMS The patient will proceed to the ED for further evaluation. 04/22/19 21:20 Discharge Disposition - Diagnosis Groin pain, chronic, left - Referrals - Patient Instructions - Post Discharge Activity
[2019-04-22 21:17] VITALS: BP 148/78; PULSE 87; TEMP 97.9; BMI 23.0
--- NOTE | 2019-04-22 22:41 | PDOC ---
History of Present Illness - General Chief Complaint: Pain Stated Complaint: PAIN Time Seen by Provider: 04/22/19 21:05 Past History - Past Medical History Allergies/Adverse Reactions: Allergies Allergy/AdvReac Type Severity Reaction Status Date / Time Penicillins Allergy Severe Hives Verified 04/21/19 08:45 morphine Allergy Intermediate Vomiting Verified 04/21/19 08:45 Home Medications: Ambulatory Orders Albuterol Sulfate [Proair Hfa -] 1 - 2 inh PO TID PRN 08/18/12 Allopurinol [Zyloprim -] 100 mg PO BID 08/18/12 Oxycodone HCl/Acetaminophen [Percocet 5-325 mg Tablet] 1 - 2 tab PO PRN PRN #0 tablet 08/19/12 Salmeterol/Fluticasone [Advair 500Mcg/50Mcg -] 1 inh IH DAILY 08/19/12 Tiotropium [place] [Spiriva] 1 inh IH DAILY 08/19/12 Tamsulosin HCl [Flomax] 0.8 mg PO BID 04/21/19 Anemia: No Asthma: Yes Cancer: No Cardiac Disorders: No CVA: No COPD: Yes CHF: No Dementia: No Diabetes: No GI Disorders: No Disorders: No HTN: No Hypercholesterolemia: No Liver Disease: No Seizures: No Thyroid Disease: No - Surgical History Abdominal Surgery: No Cardiac Surgery: No Cholecystectomy: No Lung Surgery: No Neurologic Surgery: No Orthopedic Surgery: No - Psycho Social/Smoking Cessation Hx Smoking History: Current some day smoker Have you smoked in the past 12 months: No Number of Cigarettes Smoked Daily: 10 Cigars Per Day: 10 Information on smoking cessation initiated: No 'Breaking Loose' booklet given: 08/19/12 Hx Alcohol Use: Yes Drug/Substance Use Hx: No Substance Use Type: None Hx Substance Use Treatment: No *Physical Exam - Vital Signs Last Vital Signs Temp Pulse Resp BP Pulse Ox 97.9 F 87 20 148/78 100 04/22/19 21:11 04/22/19 21:11 04/22/19 21:11 04/22/19 21:11 04/22/19 21:11 Medical Decision Making - Medical Decision Making 04/22/19 22:38 63 y/o male. Has been seen in the ED multiple times. Refuses to answer questions after multiple attempts. Multiple staff members attempted to interview and evaluate the patient. Patient refused multiple times. Pt asked to change into a gown. Pt refused to be examined. Pt is ambulating on his own, and appears cognitively intact, with the capacity to make his own decisions, not under the influence of any drugs or alcohol. Pt eloped from the ED after multiple offers for medical evaluation. Discharge - Discharge Information Problems reviewed: Yes Clinical Impression/Diagnosis: Groin pain, chronic, left Disposition: ELOPED - Follow up/Referral - Patient Discharge Instructions - Post Discharge Activity
--- NOTE | 2019-04-22 23:08 | PDOC ---
Attending Attestation - Resident Resident Name: Darron Gonzalez - ED Attending Attestation I have performed the following: I have examined & evaluated the patient, The case was reviewed & discussed with the resident, I agree w/resident's findings & plan, Exceptions are as noted - HPI HPI: 04/22/19 23:44 63M pmh COPD, CKD, gout, reducible L inguinal hernia for more than a year here c /o L inguinal pain - Physicial Exam PE: 04/22/19 23:45 Patient refused exam - Medical Decision Making 04/22/19 23:45 The patient is presenting with L inguinal pain. I am concerned that this may be an incarcerated/strangulated hernia. The patient has verbalized understanding of my concerns. The patient is clinically sober and appears free from distracting injury. The patient appears to have intact insight, judgment, and reason. In my opinion, this patient has the capacity to make decisions The risks of leaving against medical advice without further evaluation treatment were discussed with the patient. These risks include , permanent disability. The patient indicated understanding of these risks and appeared to have the capacity to make this decision. The patient is unwilling to stay for a medical evaluation and is leaving against medical advice I'm unable to convince the patient to stay. I have asked the patient to return as soon as possible to complete his evaluation.
== END 2019-04-22 22:20 | disposition left against medical advice (07) ==
LOC: JER 20:44
PROC: 3E0F7GC Introduction of Other Therapeutic Substance into Respiratory Tract, Via Natural or Artificial Opening (ICD-10-PCS; principal; 2019-04-22)
DX: J44.1 Chronic obstructive pulmonary disease with (acute) exacerbation (principal); J45.901 Unspecified asthma with (acute) exacerbation; F17.290 Nicotine dependence, other tobacco product, uncomplicated
CPT/HCPCS: 99281-25

== ENCOUNTER 2019-04-23 09:48 | Emergency (ER) | payer OTHER ==
[2019-04-23 10:08] VITALS: BP 114/75; PULSE 99; TEMP 97.9; BMI 23.0
[2019-04-23] MEDS ORDERED: ALBUTEROL SO4 2.5/IPRATROPIUM 0.5 INH SOL 3 ML VIAL.NEB. NEB SCH (10:30)
[2019-04-23] MEDS ORDERED: ALBUTEROL SO4 0.083% IH SOL 2.5 MG/3 ML VIAL.NEB. NEB ONE (10:37)
[2019-04-23] MEDS ORDERED: IPRATROPIUM BR 0.02% 0.5 MG/2.5 ML VIAL.NEB. NEB ONE (10:37)
--- NOTE | 2019-04-23 10:42 | PDOC ---
History of Present Illness - General Chief Complaint: Cold Symptoms Stated Complaint: COUGH Time Seen by Provider: 04/23/19 10:11 History Source: Patient - History of Present Illness Timing/Duration: reports: other Past History - Past Medical History Allergies/Adverse Reactions: Allergies Allergy/AdvReac Type Severity Reaction Status Date / Time Penicillins Allergy Severe Hives Verified 04/23/19 10:00 morphine Allergy Intermediate Vomiting Verified 04/23/19 10:00 Home Medications: Ambulatory Orders Albuterol Sulfate [Proair Hfa -] 1 - 2 inh PO TID PRN 08/18/12 Allopurinol [Zyloprim -] 100 mg PO BID 08/18/12 Oxycodone HCl/Acetaminophen [Percocet 5-325 mg Tablet] 1 - 2 tab PO PRN PRN #0 tablet 08/19/12 Salmeterol/Fluticasone [Advair 500Mcg/50Mcg -] 1 inh IH DAILY 08/19/12 Tiotropium [place] [Spiriva] 1 inh IH DAILY 08/19/12 Tamsulosin HCl [Flomax] 0.8 mg PO BID 04/21/19 Anemia: No Asthma: Yes Cancer: No Cardiac Disorders: No CVA: No COPD: Yes CHF: No Dementia: No Diabetes: No GI Disorders: No Disorders: No HTN: No Hypercholesterolemia: No Liver Disease: No Seizures: No Thyroid Disease: No - Surgical History Abdominal Surgery: No Cardiac Surgery: No Cholecystectomy: No Lung Surgery: No Neurologic Surgery: No Orthopedic Surgery: No - Immunization History Immunization Up to Date: Yes - Psycho Social/Smoking Cessation Hx Smoking History: Current every day smoker Have you smoked in the past 12 months: No Number of Cigarettes Smoked Daily: 20 Cigars Per Day: 10 Information on smoking cessation initiated: No 'Breaking Loose' booklet given: 08/19/12 Hx Alcohol Use: Yes Drug/Substance Use Hx: No Substance Use Type: None Hx Substance Use Treatment: No Review of Systems - Review of Systems Constitutional: No: Chills, Fever Respiratory: Yes: Cough, Shortness of Breath, Wheezing Cardiac (ROS): Yes: Chest Tightness *Physical Exam - Vital Signs Last Vital Signs Temp Pulse Resp BP Pulse Ox 97.9 F 99 H 16 114/75 100 04/23/19 10:00 04/23/19 10:00 04/23/19 10:00 04/23/19 10:00 04/23/19 10:00 - Physical Exam General Appearance: Yes: Appropriately Dressed, Mild Distress HEENT: positive: Normal Voice Neck: positive: Supple Respiratory/Chest: positive: Wheezing. negative: Respiratory Distress Integumentary: positive: Dry, Warm Neurologic: positive: Fully Oriented, Alert, Normal Mood/Affect Medical Decision Making - Medical Decision Making 04/23/19 10:30 63-year-old male. h/o asthma/COPD not on oxygen, continues to smoke cigars, currently on Z on Z-Pack and Pred taper after presenting to outside ER for cough shortness of breath and wheezing. States chest x-ray was done and was negative. Here because cough shortness of breath and wheezing continues. Using Advair and rescue inhaler with no relief per patient. No fever or chills. see exam Asthma/copd flare, continues to smoke cigars On day 3 of Z-Pack and prednisone taper given at [facility] Chest x-ray -3 days ago per pt Stable w/ diffuse wheezing on exam -duonebs -reassess 04/23/19 10:58 04/23/19 11:10 After 1 DuoNeb treatment, pt states he feels significantly better and now requesting discharge. Lungs clear on reassessment. Able to ambulate without shortness of breath. DC to continue meds and return as needed Discharge - Discharge Information Problems reviewed: Yes Clinical Impression/Diagnosis: COPD exacerbation Asthma exacerbation Qualifiers: Asthma severity: unspecified severity Asthma persistence: unspecified Qualified Code(s): J45.901 - Unspecified asthma with (acute) exacerbation Condition: Improved Disposition: HOME - Follow up/Referral - Patient Discharge Instructions Additional Instructions: Continue taking your medications. If symptoms worsen, return to ER Strongly consider discontinuation cigars! - Post Discharge Activity
== END 2019-04-23 11:27 | disposition home or self-care (01) ==
LOC: JERFT 09:48
PROC: 3E0F7GC Introduction of Other Therapeutic Substance into Respiratory Tract, Via Natural or Artificial Opening (ICD-10-PCS; principal; 2019-04-23)
DX: J45.901 Unspecified asthma with (acute) exacerbation (principal); J44.1 Chronic obstructive pulmonary disease with (acute) exacerbation; F17.210 Nicotine dependence, cigarettes, uncomplicated; Z88.0 Allergy status to penicillin; Z88.6 Allergy status to analgesic agent
CPT/HCPCS: 94640; 99281-25

== ENCOUNTER 2019-04-23 20:55 | Emergency (ER) | payer OTHER ==
[2019-04-23 21:05] VITALS: BP 131/66; PULSE 105; TEMP 98; BMI 23.0
--- NOTE | 2019-04-23 21:06 | PDOC ---
Rapid Medical Evaluation Chief Complaint: Pain Time Seen by Provider: 04/23/19 21:05 Medical Evaluation: Allergies Allergy/AdvReac Type Severity Reaction Status Date / Time Penicillins Allergy Severe Hives Verified 04/23/19 14:43 morphine Allergy Intermediate Vomiting Verified 04/23/19 14:43 04/23/19 21:05 63 year old male third visit to the ER c/o right groin pain. patient alert ox3. PMHX: COPD asthma A: groin pain p Discharge Disposition - Diagnosis Groin pain, chronic, left - Referrals - Patient Instructions - Post Discharge Activity
== END 2019-04-23 21:20 | disposition left against medical advice (07) ==
LOC: JER 20:55
DX: Z53.21 Procedure and treatment not carried out due to patient leaving prior to being seen by health care provider (principal)
CPT/HCPCS: 99281-25

== ENCOUNTER 2019-10-26 00:51 | Emergency (ER) | payer OTHER ==
[2019-10-26 01:07] VITALS: BP 128/82; PULSE 86; TEMP 98.3; BMI 21.6
--- NOTE | 2019-10-26 01:32 | PDOC ---
Attending Attestation - Resident Resident Name: Sunil Zarate - ED Attending Attestation I have performed the following: I have examined & evaluated the patient, The case was reviewed & discussed with the resident, I agree w/resident's findings & plan - HPI HPI: 10/26/19 01:37 see resident hpi - Physicial Exam PE: 10/26/19 01:37 see resident exam - Medical Decision Making 10/26/19 01:37 64-year-old male with chronic right knee pain requesting Toradol shot Due to previous elevated creatinine patient advised that we will not be administering NSAIDs Will DC with recommended outpatient follow-up, patient states he was lined up with orthopedic evaluation and follow-up through [place] which was delayed due to COVID, he was advised to return to that office for further evaluation He reports no new injury There are no signs of trauma or acute bony tenderness requiring x-ray at this time He is distally neurovascularly intact as well Discharge - Discharge Information Problems reviewed: Yes Clinical Impression/Diagnosis: Chronic knee pain Condition: Fair - Follow up/Referral - Patient Discharge Instructions - Post Discharge Activity
[2019-10-26] MEDS ORDERED: LIDOCAINE 5% TOPICAL PATCH TP ONE (01:37)
[2019-10-26] MEDS ORDERED: HEPARIN NA (PORCINE) 5,000 UNITS/ML 1ML VIAL ONE (01:46)
--- NOTE | 2019-10-26 01:50 | PDOC ---
History of Present Illness - General Chief Complaint: Pain, Acute Stated Complaint: R KNEE PAIN Time Seen by Provider: 10/26/19 01:31 - History of Present Illness Initial Comments: 10/26/19 01:43 64 yo male with pmh of COPD and Right hip surgery presents to ED for chronic right knee pain. Pt explains that he fell at work last year and since then been having right knee pain. Pt was told by multiple doctors he has no fracture but his knee is rubbing "bone on bone". He was set to get surgery at [facility] earlier in the year but COVID occurred and pt was not able to get surgery. Pt now explains pain is so bad where he is not able to sleep at night. Pt has taken multiple tylenol today with no relief. Pt explains that he takes toradol for pain when coming to hospital and that helps. Pt denies any numbness in his lower extremities and is able to still walk on leg but does start to have trouble walking up stairs currently. Pt denies any fevers, chills, New trauma to area, shortness of breath or chest pain, back pain, urinary or bowel incontinence. PMH: COPD Med: tylenol PSH: right hip surgery Allergies: morphine and penicillin SOcial: smokes cigarettes currently Past History - Medical History Allergies/Adverse Reactions: Allergies Allergy/AdvReac Type Severity Reaction Status Date / Time Penicillins Allergy Severe Hives Verified 10/26/19 01:03 morphine Allergy Intermediate Vomiting Verified 10/26/19 01:03 Home Medications: Ambulatory Orders Albuterol Sulfate [Proair Hfa -] 1 - 2 inh PO TID PRN 08/18/12 Allopurinol [Zyloprim -] 100 mg PO BID 08/18/12 Oxycodone HCl/Acetaminophen [Percocet 5-325 mg Tablet] 1 - 2 tab PO PRN PRN #0 tablet 08/19/12 Salmeterol/Fluticasone [Advair 500Mcg/50Mcg -] 1 inh IH DAILY 08/19/12 Tiotropium [place] [Spiriva] 1 inh IH DAILY 08/19/12 Tamsulosin HCl [Flomax] 0.8 mg PO BID 04/21/19 Acetaminophen 325 mg PO QID #30 tablet 10/26/19 Anemia: No Asthma: Yes Cancer: No Cardiac Disorders: No CVA: No COPD: Yes CHF: No Dementia: No Diabetes: No GI Disorders: No Disorders: No HTN: No Hypercholesterolemia: No Liver Disease: No Psychiatric Problems: Yes Seizures: No Thyroid Disease: No - Surgical History Abdominal Surgery: No Cardiac Surgery: No Cholecystectomy: No Lung Surgery: No Neurologic Surgery: No Orthopedic Surgery: No - Immunization History Immunization Up to Date: Yes - Psycho-Social/Smoking History Smoking History: Former smoker Have you smoked in the past 12 months: No Number of Cigarettes Smoked Daily: 10 Cigars Per Day: 1 Information on smoking cessation initiated: No 'Breaking Loose' booklet given: 08/19/12 - Substance Abuse Hx (Audit-C & DAST Scrn) How often the patient has a drink containing alcohol: Monthly or less Number of drinks the patient has on a typical day: 1 or 2 How often the patient has six or more drinks on one occasion: Never Score: In Men: 4 or > Positive; In Women: 3 or > Positive: 1 Screen Result (Pos requires Nsg. Audit-10AR): Negative In the last yr the pt used illegal drug/Rx for NonMed reason: No Score: Yes response is considered Positive: 0 Screen Result (Positive result requires Nsg. DAST-10): Negative *Physical Exam - Vital Signs Last Vital Signs Temp Pulse Resp BP Pulse Ox 98.3 F 86 18 128/82 100 10/26/19 01:00 10/26/19 01:00 10/26/19 01:00 10/26/19 01:00 10/26/19 01:00 - Physical Exam 10/26/19 01:47 GENERAL: Awake, alert, and fully oriented, in no acute distress HEAD: No signs of trauma, normocephalic, atraumatic EYES: PERRLA, EOMI, sclera anicteric, conjunctiva clear ENT: Auricles normal inspection, hearing grossly normal, nares patent, oropharynx clear without exudates. Moist mucosa NECK: Normal ROM, supple, no lymphadenopathy, JVD, or masses LUNGS: No distress, speaks full sentences, clear to auscultation bilaterally HEART: Regular rate and rhythm, normal S1 and S2, no murmurs, rubs or gallops, peripheral pulses normal and equal bilaterally. ABDOMEN: Soft, nontender, normoactive bowel sounds. No guarding, no rebound. No masses EXTREMITIES : Normal inspection, Normal range of motion. Mild edema on right knee, no erythema. No bony tenderness, mild muscular tenderness on anterior knee, positive gabriele test on medial and lateral aspect of knee. negative valgus and varus stress test. 2+ pulses on bilateral lower extremities. Sensation intact on bilateral lower extremities. NEUROLOGICAL: Cranial nerves II through XII grossly intact. Normal speech, normal gait, no focal sensorimotor deficits SKIN: Warm, Dry, normal turgor, no rashes or lesions noted Medical Decision Making - Medical Decision Making 10/26/19 01:50 64 yo male coming in for acute on chronic right knee pain. Pt has elevated kidney levels so will not give NSAIDs. Told pt about kidney level and not to take NSAIDs anymore and continue taking tylenol which pt understood and agreed. Will not get xray of knee due to multiple xrays prior, and Pt explains that he does not want xray. Will give tylenol and DC. Discharge - Discharge Information Problems reviewed: Yes Clinical Impression/Diagnosis: Chronic knee pain Condition: Good Disposition: HOME - Additional Discharge Information Prescriptions: Acetaminophen 325 mg PO QID #30 tablet - Follow up/Referral - Patient Discharge Instructions Additional Instructions: You came to the ED for acute on chronic right knee pain. At the ED we gave you lidocaine patch and tylenol. I also sent a prescription of Tylenol for you to take at home. At home please take 325mg-1000mg of tylenol every 6 hours. Please do not take more than 4000mg in 24 hours. PLEASE DO NO TAKE IBUPROFEN, MOTRIN, ALEVE OR ANY TYPE OF NSAIDS because your kidney level is elevated. Please follow up with your PCP for the pain IF you have any of the following please return: - fevers or chills - increased redness and swelling in knee - numbness in your lower extremities - loss of blood to lower ext. Any emergent symptoms please call for medical help. - Post Discharge Activity
[2019-10-26] MEDS ORDERED: ACETAMINOPHEN 325 MG TABLET (FP) PO ONE (02:09)
[2019-10-26] MEDS ORDERED: LIDOCAINE 5% TOPICAL PATCH ONE (02:14)
[2019-10-26] MEDS ORDERED: ACETAMINOPHEN 325 MG TABLET (FP) ONE (02:38)
[2019-10-26] MEDS ORDERED: LIDOCAINE PATCH REMOVAL MC SCH (22:00)
== END 2019-10-26 03:00 | disposition home or self-care (01) ==
LOC: JER 00:51
DX: M25.561 Pain in right knee (principal)
CPT/HCPCS: 99283-25

== ENCOUNTER 2019-11-06 11:21 | Emergency (ER) | payer OTHER ==
[2019-11-06 11:44] VITALS: BP 103/66; PULSE 83; TEMP 98.4; BMI 20.5
--- NOTE | 2019-11-06 12:19 | PDOC ---
History of Present Illness - General Chief Complaint: Lightheaded Stated Complaint: DIZZNESS Time Seen by Provider: 11/06/19 12:04 History Source: Patient Exam Limitations: Clinical Condition - History of Present Illness Initial Comments: 11/06/19 12:25 Patient with past medical history of asthma, COPD and bipolar disorder brought in by significant EMS from [facility] with complaint of lightheadedness and dizziness upon wake this morning which patient reported has improved now. Patient reported he felt his glucose was low in report has improved after he ate something. Patient reported glucose check was checked by EMS but patient does not recall the numbers. Denies any symptoms now. Patient requesting to be discharged as he feels ready to go home Is this a multiple visit Asthma Patient?: No Timing/Duration: resolved prior to arrival Past History - Medical History Allergies/Adverse Reactions: Allergies Allergy/AdvReac Type Severity Reaction Status Date / Time Penicillins Allergy Severe Hives Verified 11/06/19 11:29 morphine Allergy Intermediate Vomiting Verified 11/06/19 11:29 Home Medications: Ambulatory Orders Benztropine Mesylate [Cogentin -] 1 mg PO BID 11/06/19 Divalproex *ER* [Depakote *ER* -] 1,000 mg PO HS 11/06/19 Haloperidol [Haldol -] 5 mg PO BID 11/06/19 Anemia: No Asthma: Yes Cancer: No Cardiac Disorders: No CVA: No COPD: Yes CHF: No Dementia: No Diabetes: No GI Disorders: No Disorders: No HTN: No Hypercholesterolemia: No Liver Disease: No Psychiatric Problems: Yes (bipolar) Seizures: No Thyroid Disease: No Other medical history: chronic rt knee pain - Surgical History Abdominal Surgery: No Cardiac Surgery: No Cholecystectomy: No Lung Surgery: No Neurologic Surgery: No Orthopedic Surgery: No - Immunization History Immunization Up to Date: Yes - Psycho-Social/Smoking History Smoking History: Current every day smoker Have you smoked in the past 12 months: No Number of Cigarettes Smoked Daily: 20 Cigars Per Day: 1 Information on smoking cessation initiated: No 'Breaking Loose' booklet given: 08/19/12 - Substance Abuse Hx (Audit-C & DAST Scrn) How often the patient has a drink containing alcohol: Never Score: In Men: 4 or > Positive; In Women: 3 or > Positive: 0 Screen Result (Pos requires Nsg. Audit-10AR): Negative In the last yr the pt used illegal drug/Rx for NonMed reason: No Score: Yes response is considered Positive: 0 Screen Result (Positive result requires Nsg. DAST-10): Negative Review of Systems - Review of Systems Able to Perform ROS?: Yes Is the patient limited Persian proficient: No Constitutional: No: Chills, Fever, Malaise HEENTM: No: Symptoms Reported, See HPI, Eye Pain, Blurred Vision, Tearing, Recen t change in vision, Double Vision, Cataracts, Ear Pain, Ocular Prothesis, Ear Discharge, Nose Pain, Nose Congestion, Tinnitus, Nose Bleeding, Hearing Loss, Throat Pain, Throat Swelling, Mouth Pain, Dental Problems, Difficulty Swallowing, Mouth Swelling, Other Respiratory: No: Symptoms reported, See HPI, Cough, Orthopnea, Shortness of Breath, SOB with Exertion, SOB at Rest, Stridor, Wheezing, Productive cough, Hemoptysis, Other Cardiac (ROS): Yes: Symptoms Reported, See HPI. No: Chest Pain, Edema, Irregular Heart Rate, Lightheadedness (improved), Palpitations, Syncope, Chest Tightness, Other ABD/GI: No: Symptoms Reported, Nausea, Vomiting Neurological: No: Symptoms reported, See HPI, Headache, Weakness, Dizziness All Other Systems: Reviewed and Negative *Physical Exam - Vital Signs Last Vital Signs Temp Pulse Resp BP Pulse Ox 98.4 F 83 18 103/66 99 11/06/19 11:27 11/06/19 11:27 11/06/19 11:27 11/06/19 11:27 11/06/19 11:27 - Physical Exam 11/06/19 12:29 GENERAL: Well developed, well nourished. Awake and alert. No acute distress. HEENT: Normocephalic, atraumatic. PERRLA, EOMI. No conjunctival pallor. Sclera are non-icteric. Moist mucous membranes. Oropharynx is clear. NECK: Supple. Full ROM. CARDIOVASCULAR: Regular rate and rhythm. No murmurs, rubs, or gallops. Distal pulses are 2+ and symmetric. PULMONARY: No evidence of respiratory distress. Lungs clear to auscultation bilaterally. No wheezing, rales or rhonchi. MUSCULOSKELETAL Normal range of motion at all joints. EXTREMITIES: No cyanosis. No clubbing. No edema. SKIN: Warm and dry. Normal capillary refill. No rashes. No jaundice. NEUROLOGICAL: Alert, awake, appropriate. Gait is normal without ataxia. PSYCHIATRIC: Cooperative. Good eye contact. Appropriate mood General Appearance: Yes: Nourished, Appropriately Dressed. No: Apparent Distress Medical Decision Making - Medical Decision Making 11/06/19 12:26 Patient with past medical history of asthma, COPD and bipolar disorder brought in by significant EMS from [facility] with complaint of lightheadedness and dizziness upon wake this morning which patient reported has improved now. Patient reported he felt his glucose was low in report has improved after he ate something. Patient reported glucose check was checked by EMS but patient does not recall the numbers. Denies any symptoms now. Patient requesting to be discharged as he feels ready to go home Patient declined all blood work and even declined fingerstick as he felt his glucose was checked by EMS is normal. Patient is clinically able to make his own decision and alert and oriented and capable of refusing care.EKG done shows normal sinus rhythm Patient in no acute distress with normal exam. Patient stable for discharge as requesting to go back to halfway. Strict follow-up instructions discussed with patient Discharge - Discharge Information Problems reviewed: Yes Clinical Impression/Diagnosis: Dizziness and giddiness Condition: Improved Disposition: HOME - Admission No - Follow up/Referral Referrals: Rusty Vidal [Primary Care Provider] - - Patient Discharge Instructions Patient Printed Discharge Instructions: Combating Dizziness in Older Adults Additional Instructions: You were seen for dizziness today which you are saying you feel better. You are cleared to go back to halfway. Come back if worsening dizziness with vomiting. Follow-up with your primary care - Post Discharge Activity
--- NOTE | 2019-11-08 21:52 | EKG ---
Test Reason : Blood Pressure : / mmHG Vent. Rate : 075 BPM Atrial Rate : 075 BPM P-R Int : 150 ms QRS Dur : 120 ms QT Int : 386 ms P-R-T Axes : 047 -55 077 degrees QTc Int : 431 ms NORMAL SINUS RHYTHM LEFT ANTERIOR FASCICULAR BLOCK SEPTAL INFARCT , AGE UNDETERMINED ABNORMAL ECG WHEN COMPARED WITH ECG OF 29-OCT-2019 01:10, SEPTAL INFARCT IS NOW PRESENT Confirmed by AYDE WING MD ([id number]) on 11/08/2019 9:52:27 PM Referred By: Confirmed By:AYDE WING MD
== END 2019-11-06 12:43 | disposition home or self-care (01) ==
LOC: JER 11:21
DX: R42 Dizziness and giddiness (principal)
CPT/HCPCS: 93005; 93010; 99283-25

== ENCOUNTER 2019-11-15 18:39 | Emergency (ER) | payer OTHER ==
[2019-11-15 18:46] VITALS: BP 129/75; PULSE 53; TEMP 98.1; BMI 20.7
--- NOTE | 2019-11-15 18:47 | PDOC ---
Rapid Medical Evaluation Time Seen by Provider: 11/15/19 18:45 Medical Evaluation: Allergies Allergy/AdvReac Type Severity Reaction Status Date / Time Penicillins Allergy Severe Hives Verified 11/15/19 18:43 morphine Allergy Intermediate Vomiting Verified 11/15/19 18:43 11/15/19 18:45 CC: [facility] facility ran out of his pain meds for his rt knee . He states they haven't given any of his meds. Now with pain to rt knee. denies injury exam: vss, in w/c Plan: confirm meds with [facility] Discharge Disposition - Diagnosis Knee pain - Referrals - Patient Instructions - Post Discharge Activity
[2019-11-15] MEDS ORDERED: ACETAMINOPHEN 500 MG TABLET (FP) PO ONE (19:26)
--- NOTE | 2019-11-15 19:29 | PDOC ---
History of Present Illness - General Chief Complaint: Pain Stated Complaint: RIGHT KNEE PAIN Time Seen by Provider: 11/15/19 18:45 - History of Present Illness Initial Comments: 11/15/19 19:27 64-year-old male with a past medical history of right knee arthritis in need of a total knee arthroplasty presents for evaluation of exacerbation of right knee pain without any precipitating traumatic event. No systemic symptoms. He lives at a facility called [facility] which ran out of Tylenol. He is requesting Tylenol for pain. Past History - Medical History Allergies/Adverse Reactions: Allergies Allergy/AdvReac Type Severity Reaction Status Date / Time Penicillins Allergy Severe Hives Verified 11/15/19 18:43 morphine Allergy Intermediate Vomiting Verified 11/15/19 18:43 Home Medications: Ambulatory Orders Benztropine Mesylate [Cogentin -] 1 mg PO BID 11/06/19 Divalproex *ER* [Depakote *ER* -] 1,000 mg PO HS 11/06/19 Haloperidol [Haldol -] 5 mg PO BID 11/06/19 Anemia: No Asthma: Yes Cancer: No Cardiac Disorders: No CVA: No COPD: Yes CHF: No Dementia: No Diabetes: No GI Disorders: No Disorders: No HTN: No Hypercholesterolemia: No Liver Disease: No Psychiatric Problems: Yes (bipolar) Seizures: No Thyroid Disease: No - Surgical History Abdominal Surgery: No Cardiac Surgery: No Cholecystectomy: No Lung Surgery: No Neurologic Surgery: No Orthopedic Surgery: No - Immunization History Immunization Up to Date: Yes - Psycho-Social/Smoking History Smoking History: Current every day smoker Have you smoked in the past 12 months: No Number of Cigarettes Smoked Daily: 20 Cigars Per Day: 1 Information on smoking cessation initiated: No 'Breaking Loose' booklet given: 08/19/12 - Substance Abuse Hx (Audit-C & DAST Scrn) How often the patient has a drink containing alcohol: Never Score: In Men: 4 or > Positive; In Women: 3 or > Positive: 0 Screen Result (Pos requires Nsg. Audit-10AR): Negative In the last yr the pt used illegal drug/Rx for NonMed reason: No Score: Yes response is considered Positive: 0 Screen Result (Positive result requires Nsg. DAST-10): Negative Review of Systems - Review of Systems Constitutional: No: Fever Musculoskeletal: Yes: Joint Pain *Physical Exam - Vital Signs Last Vital Signs Temp Pulse Resp BP Pulse Ox 98.1 F 53 L 18 129/75 100 11/15/19 18:43 11/15/19 18:43 11/15/19 18:43 11/15/19 18:43 11/15/19 18:43 - Physical Exam 11/15/19 19:27 Mildly antalgic gait right knee. Medical Decision Making - Medical Decision Making 11/15/19 19:27 Tylenol for pain follow-up with orthopedist I have reviewed the pathophysiology with the patient. They are in agreement with the treatment plan all questions were answered to their satisfaction. Understanding for follow-up without fail was also conveyed to the patient. Again they are in agreement. Discharge - Discharge Information Problems reviewed: Yes Clinical Impression/Diagnosis: Knee pain Condition: Stable Disposition: HOME - Admission No - Follow up/Referral Referrals: Rusty Vidal [Primary Care Provider] - Elmo England DO [Staff Physician] - - Patient Discharge Instructions Additional Instructions: Continue regular medication as directed and return to the emergency room for further issues without fail follow-up with orthopedic surgery in 1 to 2 days for further evaluation and treatment options. - Post Discharge Activity
[2019-11-15] MEDS ORDERED: IBUPROFEN 600 MG TABLET (FP) PO ONE ×2 (19:31→19:43)
[2019-11-15] MEDS ORDERED: ACETAMINOPHEN 325 MG TABLET (FP) ONE (19:43)
== END 2019-11-15 22:13 | disposition home or self-care (01) ==
LOC: JER 18:39 → JERFT 18:39
DX: M25.561 Pain in right knee (principal)
CPT/HCPCS: 99283-25

== ENCOUNTER 2019-12-01 14:17 | Emergency (ER) | payer OTHER ==
[2019-12-01 14:24] VITALS: BP 118/72; PULSE 94; TEMP 98; BMI 21.6
--- NOTE | 2019-12-01 14:56 | PDOC ---
History of Present Illness - General Chief Complaint: RX Refill Stated Complaint: FOLLOW-UP Time Seen by Provider: 12/01/19 14:40 - History of Present Illness Initial Comments: 12/01/19 14:54 64-year-old male with a past medical history of COPD and BPH as well as gout presents for evaluation requesting medication refills on Advair Flomax allopurinol and albuterol he states he moved into a new facility and his medication was not properly refilled. Past History - Medical History Allergies/Adverse Reactions: Allergies Allergy/AdvReac Type Severity Reaction Status Date / Time Penicillins Allergy Severe Hives Verified 11/15/19 18:43 morphine Allergy Intermediate Vomiting Verified 11/15/19 18:43 Home Medications: Ambulatory Orders Divalproex *ER* [Depakote *ER* -] 500 mg PO BID 11/06/19 Albuterol Sulfate 0.042% [Ventolin 0.042% (Half-Strength) -] 1 neb PO Q4H PRN #1 vial 12/01/19 Allopurinol 100 mg PO BID #30 tablet 12/01/19 Allopurinol [Zyloprim -] 100 mg PO BID 12/01/19 Fluticasone/Salmeterol [Advair 250-50 Diskus] 1 each IH BID #1 blst.w.dev 12/01/19 Fluticasone/Salmeterol [Advair Hfa 115-21 Mcg Inhaler] 2 puff PO BID 12/01/19 Tamsulosin HCl [Flomax] 0.4 mg PO BID 12/01/19 Tamsulosin HCl [Flomax] 0.4 mg PO DAILY #30 cap.er.24h 12/01/19 Anemia: No Asthma: Yes Cancer: No Cardiac Disorders: No CVA: No COPD: Yes CHF: No Dementia: No Diabetes: No GI Disorders: No Disorders: No HTN: No Hypercholesterolemia: No Liver Disease: No Psychiatric Problems: Yes (bipolar) Seizures: No Thyroid Disease: No - Surgical History Abdominal Surgery: No Cardiac Surgery: No Cholecystectomy: No Lung Surgery: No Neurologic Surgery: No Orthopedic Surgery: No - Immunization History Immunization Up to Date: Yes - Psycho-Social/Smoking History Smoking History: Current every day smoker Have you smoked in the past 12 months: Yes Number of Cigarettes Smoked Daily: 4 Cigars Per Day: 1 Information on smoking cessation initiated: No 'Breaking Loose' booklet given: 08/19/12 - Substance Abuse Hx (Audit-C & DAST Scrn) How often the patient has a drink containing alcohol: Never Score: In Men: 4 or > Positive; In Women: 3 or > Positive: 0 Screen Result (Pos requires Nsg. Audit-10AR): Negative In the last yr the pt used illegal drug/Rx for NonMed reason: No Score: Yes response is considered Positive: 0 Screen Result (Positive result requires Nsg. DAST-10): Negative Review of Systems - Review of Systems Constitutional: No: Fever Respiratory: No: Wheezing *Physical Exam - Vital Signs Last Vital Signs Temp Pulse Resp BP Pulse Ox 98.0 F 94 H 16 118/72 97 12/01/19 14:21 12/01/19 14:21 12/01/19 14:21 12/01/19 14:21 12/01/19 14:21 - Physical Exam General Appearance: Yes: Appropriately Dressed. No: Apparent Distress HEENT: positive: Symmetrical Neck: positive: Supple Respiratory/Chest: negative: Respiratory Distress Medical Decision Making - Medical Decision Making 12/01/19 14:55 Doses verified with [facility]. Medications sent to [facility] in [place] I have reviewed the pathophysiology with the patient. They are in agreement with the treatment plan all questions were answered to their satisfaction. Understanding for follow-up without fail was also conveyed to the patient. Again they are in agreement. Discharge - Discharge Information Problems reviewed: Yes Clinical Impression/Diagnosis: Medication refill Condition: Stable Disposition: HOME - Admission No - Additional Discharge Information Prescriptions: Fluticasone/Salmeterol [Advair 250-50 Diskus] 1 each IH BID #1 blst.w.dev Allopurinol 100 mg PO BID #30 tablet Tamsulosin HCl [Flomax] 0.4 mg PO DAILY #30 cap.er.24h Albuterol Sulfate 0.042% [Ventolin 0.042% (Half-Strength) -] 1 neb PO Q4H PRN #1 vial PRN Reason: Wheezing - Follow up/Referral Referrals: Chuy Alves MD [Staff Physician] - - Patient Discharge Instructions Additional Instructions: Return to the emergency room for further issues and without fail follow-up with your primary care physician in 1 to 2 days for further evaluation and treatment options and medication management. - Post Discharge Activity
== END 2019-12-01 15:04 | disposition home or self-care (01) ==
LOC: JERFT 14:17
DX: Z76.0 Encounter for issue of repeat prescription (principal)
CPT/HCPCS: 99283-25

== ENCOUNTER 2019-12-08 09:36 | Emergency (ER) | payer OTHER ==
[2019-12-08 09:47] VITALS: BP 124/51; PULSE 84; TEMP 97.8; BMI 21.6
[2019-12-08] MEDS ORDERED: KETOROLAC TROMETHAMINE 60 MG/2 ML VIAL IM ONE (10:45)
--- NOTE | 2019-12-08 10:49 | PDOC ---
History of Present Illness - General Chief Complaint: Cold Symptoms Stated Complaint: FLU SYMPTOMS Time Seen by Provider: 12/08/19 09:51 History Source: Patient Exam Limitations: No Limitations Past History - Travel History Traveled outside of the country in the last 30 days: No Close contact w/someone who was outside of country & ill: No - Medical History Allergies/Adverse Reactions: Allergies Allergy/AdvReac Type Severity Reaction Status Date / Time Penicillins Allergy Severe Hives Verified 12/08/19 10:08 morphine Allergy Intermediate Vomiting Verified 12/08/19 10:08 Home Medications: Ambulatory Orders Divalproex *ER* [Depakote *ER* -] 1,000 mg PO HS 11/06/19 Albuterol Sulfate 0.042% [Ventolin 0.042% (Half-Strength) -] 1 neb PO Q4H PRN #1 vial 12/01/19 Allopurinol 100 mg PO BID #30 tablet 12/01/19 Tamsulosin HCl [Flomax] 0.4 mg PO BID 12/01/19 Albuterol 2.5/Ipratropium 0.5 [Duoneb -] 1 neb NEB Q4H #20 vial 12/08/19 Azithromycin [Zithromax 250mg Tablets -] 250 mg PO UTDICT #6 tab 12/08/19 Haloperidol [Haldol -] 0.25 mg PO BID 12/08/19 Methylprednisolone [Medrol Dose Rudolph] 4 mg PO ASDIR #21 tablet 12/08/19 Nebulizer [Aeroeclipse II] 1 each MC Q4H #1 each 12/08/19 Anemia: No Asthma: Yes Cancer: No Cardiac Disorders: No CVA: No COPD: Yes CHF: No Dementia: No Diabetes: No GI Disorders: No Disorders: No HTN: No Hypercholesterolemia: No Liver Disease: No Psychiatric Problems: Yes (bipolar) Seizures: No Thyroid Disease: No - Surgical History Abdominal Surgery: No Cardiac Surgery: No Cholecystectomy: No Lung Surgery: No Neurologic Surgery: No Orthopedic Surgery: No - Immunization History Immunization Up to Date: Yes - Psycho-Social/Smoking History Smoking History: Current every day smoker Have you smoked in the past 12 months: Yes Number of Cigarettes Smoked Daily: 8 Cigars Per Day: 1 Information on smoking cessation initiated: No 'Breaking Loose' booklet given: 08/19/12 - Substance Abuse Hx (Audit-C & DAST Scrn) How often the patient has a drink containing alcohol: Never Score: In Men: 4 or > Positive; In Women: 3 or > Positive: 0 Screen Result (Pos requires Nsg. Audit-10AR): Negative In the last yr the pt used illegal drug/Rx for NonMed reason: No Score: Yes response is considered Positive: 0 Screen Result (Positive result requires Nsg. DAST-10): Negative Review of Systems - Review of Systems Able to Perform ROS?: Yes Comments:: 12/08/19 11:04 CONSTITUTIONAL: Absent: fever, chills, diaphoresis, generalized weakness, malaise, loss of appetite HEENT: Present; congestion, rhinorrhea Absent: rhinorrhea, nasal congestion, throat pain, throat swelling, difficulty swallowing, mouth swelling, ear pain, eye pain, visual Changes CARDIOVASCULAR: Absent: chest pain, loss of consciousness, palpitations, irregular heart rate, peripheral edema RESPIRATORY: Present: cough, wheezing Absent: , shortness of breath, dyspnea with exertion, orthopnea, stridor, hemoptysis GASTROINTESTINAL: Absent: abdominal pain, abdominal distension, nausea, vomiting, diarrhea, constipation, melena, hematochezia GENITOURINARY: Absent: dysuria, frequency, urgency, hesitancy, hematuria, flank pain, genital pain MUSCULOSKELETAL: Present: R knee pain Absent: myalgia, arthralgia, joint swelling SKIN: Absent: rash, itching, pallor HEMATOLOGIC/IMMUNOLOGIC: Absent: easy bleeding, easy bruising, lymphadenopathy, frequent infections ENDOCRINE: Absent: unexplained weight gain, unexplained weight loss, heat intolerance, cold intolerance NEUROLOGIC: Absent: headache, focal weakness or paresthesias, dizziness, unsteady gait, seizure, mental status changes, bladder or bowel incontinence PSYCHIATRIC: Absent: anxiety, depression, suicidal or homicidal ideation, hallucinations. Is the patient limited Italian proficient: No *Physical Exam - Vital Signs Last Vital Signs Temp Pulse Resp BP Pulse Ox 97.8 F 84 16 124/51 L 100 12/08/19 09:41 12/08/19 09:41 12/08/19 09:41 12/08/19 09:41 12/08/19 09:41 - Physical Exam 12/08/19 11:05 GENERAL: Well developed, well nourished. Awake and alert. No acute distress. HEENT: Normocephalic, atraumatic. PERRLA, EOMI. No conjunctival pallor. Sclera are non- icteric. Moist mucous membranes. Oropharynx is clear. NECK: Supple. Full ROM. No lymphadenopathy. CARDIOVASCULAR: Regular rate and rhythm. No murmurs, rubs, or gallops. Distal pulses are 2+ and symmetric. PULMONARY: No evidence of respiratory distress. Lungs clear with scattered wheezing b/l. ABDOMINAL: Soft. Non-tender. Non-distended. No rebound or guarding. No organomegaly. Normoactive bowel sounds. MUSCULOSKELETAL TTP of the lateral aspect of the R knee. Normal range of motion at all joints. No bony deformities or tenderness. No CVA tenderness. EXTREMITIES: No cyanosis. No clubbing. No edema. No calf tenderness. SKIN: Warm and dry. Normal capillary refill. No rashes. No jaundice. NEUROLOGICAL: Alert, awake, appropriate. Cranial nerves 2-12 intact. No deficits to light touch and temperature in face, upper extremities and lower extremities. No motor deficits in the in face, upper extremities and lower extremities. Normoreflexic in the upper and lower extremities. Normal speech. Toes are down-going bilaterally. Gait is normal without ataxia. PSYCHIATRIC: Cooperative. Good eye contact. Appropriate mood and affect. ED Treatment Course - RADIOLOGY Radiology Studies Ordered: Category Date Time Status CHEST PA & LAT [RAD] Stat Radiology 12/08/19 10:11 Completed Medical Decision Making - Medical Decision Making 12/08/19 11:12 The patient is 64-year-old male with past medical history of COPD, presents to the ER with cough, nasal congestion and body aches for the past 3 days. He states that this feels like his usual COPD exacerbation. He notes that he has a white sputum when he coughs. Denies chest pain, shortness of breath on exertion and difficulty breathing. A/P: Pneumonia/COPD exacerbation On exam patient has expiratory wheezing scattered. Chest x-ray reveals a questionable right upper lung atelectasis versus pneumonia. Given medical history we will treat as a pneumonia and referred to a hvac controls technician. Patient also reports that he has right knee pain. This is chronic for him. He is requesting a Toradol shot. We will give a Toradol shot at this time. Discharge back to his facility I discussed the physical exam findings, ancillary test results and final diagnoses with the patient. I answered all of the patient's questions. The patient was satisfied with the care received and felt comfortable with the discharge plan and treatment plan. The Patient agrees to follow up with the primary care physician/specialist within 24-72 hours. Return precautions were given. Discharge - Discharge Information Problems reviewed: Yes Clinical Impression/Diagnosis: Knee pain, Cough, COPD exacerbation Condition: Stable Disposition: HOME - Admission No - Additional Discharge Information Prescriptions: Nebulizer [Aeroeclipse II] 1 each MC Q4H #1 each Albuterol 2.5/Ipratropium 0.5 [Duoneb -] 1 neb NEB Q4H #20 vial Methylprednisolone [Medrol Dose Rudolph] 4 mg PO ASDIR #21 tablet Azithromycin [Zithromax 250mg Tablets -] 250 mg PO UTDICT #6 tab - Follow up/Referral Referrals: Elmo England DO [Staff Physician] - Benjamin Sanabria MD [Staff Physician] - - Patient Discharge Instructions Patient Printed Discharge Instructions: DI for Chronic Obstructive Pulmonary Disease, DI for Pneumonia -- Adult Additional Instructions: You were seen for your knee pain and cough today. Your cough is most likely due to a early pneumonia in addition to your COPD. Please take the azithromycin as directed. This is an antibiotic. Please take the steroids as directed starting today. You may use the nebulizer every 4 hours as needed for cough and shortness of breath. Use the incentive spirometer once an hour to help with your breathing. You may take Tylenol 650mg every 4 hours as needed for fever or pain. Please follow-up with orthopedics in regards to your knee pain. Please follow- up within the week. A referral has been provided to you. Please follow-up with a hvac controls technician regarding your COPD. Please try and do this within the week. A referral has been provided to you. Return to the ER for worsening cough, shortness of breath, fever or if you have any changes in your symptoms. - Post Discharge Activity
[2019-12-08] MEDS ORDERED: KETOROLAC TROMETHAMINE 30 MG/1 ML VIAL ONE (11:09)
== END 2019-12-08 11:17 | disposition home or self-care (01) ==
LOC: JER 09:36
PROC: 3E0233Z Introduction of Anti-inflammatory into Muscle, Percutaneous Approach (ICD-10-PCS; principal; 2019-12-08)
DX: M25.561 Pain in right knee (principal); R05 Cough; J44.1 Chronic obstructive pulmonary disease with (acute) exacerbation
CPT/HCPCS: 71046-TC-FY; 99284-25

== ENCOUNTER 2019-12-25 02:19 | Emergency (ER) | payer OTHER ==
--- NOTE | 2019-12-25 03:00 | PDOC ---
Attending Attestation - Resident Resident Name: Juan Kerns - ED Attending Attestation I have performed the following: I have examined & evaluated the patient, The case was reviewed & discussed with the resident, I agree w/resident's findings & plan - HPI HPI: 12/25/19 03:09 Pt comes with cough and SOB and chest discomfort. He lives in a care home. Pt had levaquin and prednisone last week and he feelslike it didn't help. - Physicial Exam PE: 12/25/19 03:11 Pt is afebrile VSS heart RRR lungs wheeze bilaterally abd soft NT ND no flank pain ext no C/C/E - Medical Decision Making 12/25/19 05:03 wheezing resolved patient improved cxr without pna will treat for bronchitis and copd exac flonase for congestion labs wnl discussed plan and patient agreeable for medrol dose pack and zpack 12/25/19 05:04 labs normal; pt's BUN/Cr are at his baseline. vitals normal Discharge - Discharge Information Problems reviewed: Yes Clinical Impression/Diagnosis: COPD exacerbation, Bronchitis Condition: Improved Disposition: HOME - Follow up/Referral Referrals: Rusty Vidal [Primary Care Provider] - - Patient Discharge Instructions Patient Printed Discharge Instructions: DI for Acute Bronchitis Additional Instructions: Additional Instructions: Please return to the emergency department with any new or worsening symptoms or concerns. Please follow up with your primary care physician within 72 hours. Please take the steroid dose pack as instructed Please take azithromycin 250mg daily for 4 days Please take nebulizer treatment as needed and see PCP for additional scripts - Post Discharge Activity
[2019-12-25] MEDS ORDERED: ALBUTEROL SO4 2.5/IPRATROPIUM 0.5 INH SOL 3 ML VIAL.NEB. NEB ONE ×2 (03:11→03:22)
--- NOTE | 2019-12-25 03:19 | PDOC ---
History of Present Illness - General Stated Complaint: FEVER, COUGH, SOB Time Seen by Provider: 12/25/19 02:55 - History of Present Illness Initial Comments: 12/25/19 03:12 HPI: 64 y/o M with hx of COPD, BPH, Bipolar, gout, tobacco use presenting with cough and SOB. Patient was here with similar sxs 3-4weeks ago and DCd on prednisone and levaquin but reports he never improved. 3 days ago his cough became productive of green/yellow sputum and his rhinorrhea, sore throat, chills worsened as well as SOB at rest and on exertion. He also reports pleuritic chest pain worsening with cough and deep inspiration. He denies any fevers, n/v, MAS, syncope, LOC. PMHx: as noted above ROS: as noted SHx: + tobacco use; no alcohol use; no rec drugs Allergies: NKDA ROS: GENERAL/CONSTITUTIONAL: No fever; +chills. No weakness. HEAD, EYES, EARS, NOSE AND THROAT: No change in vision. No ear pain or discharge. CARDIOVASCULAR: +chest pain and shortness of breath RESPIRATORY: +cough, wheezing GASTROINTESTINAL: No nausea, vomiting, diarrhea or constipation. GENITOURINARY: No dysuria, frequency, or change in urination. MUSCULOSKELETAL: No joint or muscle swelling or pain. No neck or back pain. SKIN: No rash NEUROLOGIC: No headache, vertigo, loss of consciousness, or change in strength/sensation. ENDOCRINE: No increased thirst. No abnormal weight change HEMATOLOGIC/LYMPHATIC: No anemia, easy bleeding, or history of blood clots. ALLERGIC/IMMUNOLOGIC: No hives or skin allergy. PE: GENERAL: Awake, alert, and fully oriented, no acute distress HEAD: No signs of trauma, normocephalic, atraumatic EYES: EOMI, sclera anicteric, conjunctiva clear ENT: Auricles normal inspection, hearing grossly normal, nares patent, oropharynx clear without exudates. Moist mucosa NECK: Normal ROM, no lymphadenopathy LUNGS: No increased work of breathing, symmetrical chest rise, scattered wheezing and coarse breath sounds HEART: Regular rate, regular rhythm, normal S1 and S2, no murmur, peripheral pulses 2+ and equal bilaterally. ABDOMEN: Soft, nondistended, nontender. No guarding, no rebound. No masses. No CVAT MUSCULOSKELETAL: FROM NEUROLOGICAL: Cranial nerves II through XII grossly intact. Normal speech, stable gait, no focal sensorimotor deficits SKIN: Warm, Dry, normal turgor, no rashes or lesions noted Past History - Medical History Allergies/Adverse Reactions: Allergies Allergy/AdvReac Type Severity Reaction Status Date / Time Penicillins Allergy Severe Hives Verified 12/08/19 10:08 morphine Allergy Intermediate Vomiting Verified 12/08/19 10:08 Home Medications: Ambulatory Orders Divalproex *ER* [Depakote *ER* -] 1,000 mg PO HS 11/06/19 Albuterol Sulfate 0.042% [Ventolin 0.042% (Half-Strength) -] 1 neb PO Q4H PRN #1 vial 12/01/19 Allopurinol 100 mg PO BID #30 tablet 12/01/19 Tamsulosin HCl [Flomax] 0.4 mg PO BID 12/01/19 Albuterol Sulfate Inhaler - [Ventolin HFA Inhaler -] 1 - 2 inh PO Q4H #1 inhaler 12/08/19 Azithromycin [Zithromax 250mg Tablets -] 250 mg PO UTDICT #6 tab 12/08/19 Haloperidol [Haldol -] 0.25 mg PO BID 12/08/19 Methylprednisolone [Medrol Dose Rudolph] 4 mg PO ASDIR #21 tablet 12/08/19 Nebulizer [Aeroeclipse II] 1 each MC Q4H #1 each 12/08/19 Anemia: No Asthma: Yes Cancer: No Cardiac Disorders: No CVA: No COPD: Yes CHF: No Dementia: No Diabetes: No GI Disorders: No Disorders: No HTN: No Hypercholesterolemia: No Liver Disease: No Psychiatric Problems: Yes (bipolar) Seizures: No Thyroid Disease: No - Surgical History Abdominal Surgery: No Cardiac Surgery: No Cholecystectomy: No Lung Surgery: No Neurologic Surgery: No Orthopedic Surgery: No - Immunization History Immunization Up to Date: Yes - Psycho-Social/Smoking History Smoking History: Current every day smoker Have you smoked in the past 12 months: Yes Number of Cigarettes Smoked Daily: 4 Cigars Per Day: 1 'Breaking Loose' booklet given: 08/19/12 ED Treatment Course - LABORATORY CBC & Chemistry Diagram: 12/25/19 03:40 12/25/19 03:40 - RADIOLOGY Radiology Studies Ordered: Category Date Time Status CHEST PA & LAT [RAD] Stat Radiology 12/25/19 03:11 Ordered Medical Decision Making - Medical Decision Making 12/25/19 03:19 64 y/o M with hx of COPD, BPH, Bipolar, gout, tobacco use presenting with cough and SOB and pleuritic chest pain. VSS, AF. PE with scattered wheezing and coarse breath sounds. DDx includes bronchitis, pna, chf, copd exac -cbc, cmp, card prof, ekg, cxr, mg -duonebs, solumedrol -reassess 12/25/19 04:42 wheezing resolved patient improved cxr without pna will treat for bronchitis and copd exac flonase for congestion labs wnl discussed plan and patient agreeable for medrol dose pack and zpack Discharge - Discharge Information Problems reviewed: Yes Clinical Impression/Diagnosis: COPD exacerbation, Bronchitis Condition: Improved Disposition: HOME - Follow up/Referral Referrals: Rusty Vidal [Primary Care Provider] - - Patient Discharge Instructions Patient Printed Discharge Instructions: DI for Acute Bronchitis Additional Instructions: Additional Instructions: Please return to the emergency department with any new or worsening symptoms or concerns. Please follow up with your primary care physician within 72 hours. Please take the steroid dose pack as instructed Please take azithromycin 250mg daily for 4 days Please take nebulizer treatment as needed and see PCP for additional scripts - Post Discharge Activity
[2019-12-25] MEDS ORDERED: methylPREDNISolone NA SUCC 125 MG/2 ML VIAL IVPUSH ONE (03:26)
[2019-12-25] MEDS ORDERED: methylPREDNISolone NA SUCC 125 MG/2 ML VIAL ONE (03:28)
[2019-12-25 03:48] LABS: BASO % 0.5 % (0-2.0); EOS % 3.8 % (0-4.5); HEMATOCRIT 32.2 % (35.4-49); HEMOGLOBIN 10.9 GM/dL (11.7-16.9); MCH 33.2 pg (25.7-33.7); MCHC 33.9 g/dl (32.0-35.9); MEAN CELL VOLUME 97.9 fl (80-96); MEAN PLT VOLUME 9.3 fl (7.5-11.1); NEUT % 57.7 % (42.8-82.8); PLATELET COUNT 134 K/MM3 (134-434); RBC 3.29 M/mm3 (4.00-5.60); WHITE BLOOD COUNT 4.6 K/mm3 (4.0-10.0)
[2019-12-25 03:52] VITALS: BP 141/80; PULSE 86; TEMP 98.6; BMI 21.6
[2019-12-25] MEDS ORDERED: FLUTICASONE PROP 0.05% 16 GM NASAL SPRAY NS ONE (04:15)
[2019-12-25 04:19] LABS: ALBUMIN 3.1 g/dl (3.4-5.0); ALK PHOS 80 U/L (45-117); ANION GAP 6 MMOL/L (8-16); BILIRUBIN,TOTAL 0.2 mg/dL (0.2-1); BLOOD UREA NITROGEN 34.8 mg/dL (7-18); CALCIUM 8.3 mg/dL (8.5-10.1); CHLORIDE 113 mmol/L (98-107); CO2 21 mmol/L (21-32); CREATININE 2.4 mg/dL (0.55-1.3); GLUCOSE,RANDOM 95 mg/dL (74-106); MAGNESIUM 2.4 mg/dL (1.8-2.4); POTASSIUM 4.6 mmol/L (3.5-5.1); SGOT/AST 15 U/L (15-37); SGPT/ALT 16 U/L (13-61); SODIUM 140 mmol/L (136-145); TOT PROT 6.1 g/dl (6.4-8.2)
[2019-12-25] MEDS ORDERED: PRESCRIPTION PAD 1 EACH EACH NR ONE (04:22)
--- NOTE | 2019-12-26 06:59 | EKG ---
Test Reason : Blood Pressure : / mmHG Vent. Rate : 084 BPM Atrial Rate : 084 BPM P-R Int : 156 ms QRS Dur : 122 ms QT Int : 386 ms P-R-T Axes : 038 -59 078 degrees QTc Int : 456 ms NORMAL SINUS RHYTHM LEFT ANTERIOR FASCICULAR BLOCK POOR R WAVE PROGRESSION ABNORMAL ECG WHEN COMPARED WITH ECG OF 06-NOV-2019 11:34, NO SIGNIFICANT CHANGE WAS FOUND Confirmed by VENUS MEDEIROS, DEDRICK ([id number]) on 12/26/2019 6:58:26 AM Referred By: Confirmed By:DEDRICK DONOVAN MD
== END 2019-12-25 04:51 | disposition home or self-care (01) ==
LOC: JER 02:19
PROC: 3E0F7GC Introduction of Other Therapeutic Substance into Respiratory Tract, Via Natural or Artificial Opening (ICD-10-PCS; principal; 2019-12-25)
PROC: 3E033GC Introduction of Other Therapeutic Substance into Peripheral Vein, Percutaneous Approach (ICD-10-PCS; 2019-12-25)
DX: J44.1 Chronic obstructive pulmonary disease with (acute) exacerbation (principal); J20.9 Acute bronchitis, unspecified
CPT/HCPCS: 36415; 71046-TC-FY; 80053; 82550; 82553; 83735; 84484; 85025; 93005; 93010; 99285-25

== ENCOUNTER 2020-01-31 18:30 | Emergency (ER) | payer OTHER ==
[2020-01-31 19:06] VITALS: BP 131/70; PULSE 96; TEMP 98.6; BMI 22.5
[2020-01-31] MEDS ORDERED: traMADol HCL 50 MG TABLET PO ONE (19:55)
[2020-01-31] MEDS ORDERED: traMADol HCL 50 MG TABLET ONE (20:28)
== END 2020-01-31 20:49 | disposition home or self-care (01) ==
LOC: JER 18:30
DX: M25.561 Pain in right knee (principal)
CPT/HCPCS: 99283-25

== ENCOUNTER 2020-02-13 16:18 | Emergency (ER) | payer OTHER ==
[2020-02-13 16:22] VITALS: BP 120/77; PULSE 85; TEMP 97.8; BMI 22.2
[2020-02-13] MEDS ORDERED: KETOROLAC TROMETHAMINE 15 MG/ML VIAL IM ONE (16:49)
[2020-02-13] MEDS ORDERED: KETOROLAC TROMETHAMINE 15 MG/ML VIAL ONE (16:49)
== END 2020-02-13 16:55 | disposition home or self-care (01) ==
LOC: JERFT 16:18
PROC: 3E0233Z Introduction of Anti-inflammatory into Muscle, Percutaneous Approach (ICD-10-PCS; principal; 2020-02-13)
DX: M25.561 Pain in right knee (principal)
CPT/HCPCS: 99284-25

== ENCOUNTER 2020-02-22 17:28 | Emergency (ER) | payer OTHER ==
[2020-02-22 18:02] VITALS: BP 148/64; PULSE 96; BMI 21.6
[2020-02-22] MEDS ORDERED: ACETAMINOPHEN 500 MG TABLET (FP) ONE (18:18)
[2020-02-22] MEDS ORDERED: ACETAMINOPHEN 500 MG TABLET (FP) PO ONE (18:19)
== END 2020-02-22 18:23 | disposition home or self-care (01) ==
LOC: JERFT 17:28
DX: M25.561 Pain in right knee (principal)
CPT/HCPCS: 99283-25

== ENCOUNTER 2020-03-02 22:14 | Emergency (ER) | payer OTHER ==
[2020-03-02 22:35] VITALS: BMI 26.2
[2020-03-02] MEDS ORDERED: ACETAMINOPHEN 1000 MG/100 ML VIAL (NON FORMULARY) IVPB ONE (22:59)
[2020-03-02] MEDS ORDERED: ACETAMINOPHEN INJECTION 100 ML IVPB ONE (23:02)
[2020-03-03 05:50] VITALS: BP 134/72; PULSE 67; TEMP 98.3
== END 2020-03-03 05:50 | disposition home or self-care (01) ==
LOC: JER 22:14
PROC: 3E0333Z Introduction of Anti-inflammatory into Peripheral Vein, Percutaneous Approach (ICD-10-PCS; principal; 2020-03-02)
DX: M25.561 Pain in right knee (principal)
CPT/HCPCS: 99284-25; J0131

== ENCOUNTER 2020-03-08 23:21 | Emergency (ER) | payer OTHER ==
[2020-03-08 23:26] VITALS: PULSE 89; TEMP 98.6; BMI 23.3
[2020-03-08 23:30] VITALS: BP 155/74
[2020-03-09] MEDS ORDERED: KETOROLAC TROMETHAMINE 15 MG/ML VIAL IM ONE (00:01)
[2020-03-09] MEDS ORDERED: KETOROLAC TROMETHAMINE 15 MG/ML VIAL ONE (00:05)
== END 2020-03-09 00:52 | disposition home or self-care (01) ==
LOC: JER 23:21
PROC: 3E0233Z Introduction of Anti-inflammatory into Muscle, Percutaneous Approach (ICD-10-PCS; principal; 2020-03-08)
DX: M25.561 Pain in right knee (principal)
CPT/HCPCS: 99284-25

== ENCOUNTER 2020-03-18 22:53 | Emergency (ER) | payer OTHER ==
[2020-03-18 23:12] VITALS: BP 125/62; PULSE 89; TEMP 98.6; BMI 21.9
[2020-03-18] MEDS ORDERED: KETOROLAC TROMETHAMINE 60 MG/2 ML VIAL IM ONE (23:14)
[2020-03-19] MEDS ORDERED: KETOROLAC TROMETHAMINE 60 MG/2 ML VIAL ONE (00:50)
[2020-03-21] MEDS ORDERED: SODIUM CHLORIDE IV ONE (10:04)
== END 2020-03-19 01:11 | disposition home or self-care (01) ==
LOC: JER 22:53
PROC: 3E0233Z Introduction of Anti-inflammatory into Muscle, Percutaneous Approach (ICD-10-PCS; principal; 2020-03-18)
DX: M25.561 Pain in right knee (principal)
CPT/HCPCS: 73562-TC-RT-FY; 93005; 93010; 99285-25

== ENCOUNTER 2020-03-21 09:52 | Inpatient (IN) | payer OTHER ==
[2020-03-21] MEDS ORDERED: NOREPINEPHRINE BITARTRATE 4 MG/4 ML ML IV ONE (10:04)
[2020-03-21] MEDS ORDERED: ROCURONIUM BROMIDE 100 MG/10 ML VIAL ONE (10:05)
[2020-03-21] MEDS ORDERED: MAGNESIUM SULF 50% (8.12 MEQ/2 ML-1 GM VIAL) IVPB ONE (10:08)
[2020-03-21] MEDS ORDERED: NOREPINEPHRINE BITARTRATE 4,000 MCG in SODIUM CHLORIDE 496 ML IV SCH (10:15)
[2020-03-21] MEDS ORDERED: MIDAZOLAM IN 0.9 % SOD.CHLORID 100 MG/100 ML PLAST..BAG IVPB SCH ×2 (10:30→11:15)
[2020-03-21] MEDS ORDERED: MAGNESIUM 1GM/D5W - 1 GM/100 ML IVPB IVPB ONE (10:38)
[2020-03-21 10:50] LABS: BASO % 0.3 % (0-2.0); EOS % 1.3 % (0-4.5); HEMATOCRIT 38.2 % (35.4-49); HEMOGLOBIN 12.5 GM/dL (11.7-16.9); MCH 33.6 pg (25.7-33.7); MCHC 32.6 g/dl (32.0-35.9); MEAN CELL VOLUME 102.9 fl (80-96); MEAN PLT VOLUME 9.4 fl (7.5-11.1); MONO % 2.1 % (3.8-10.2); NEUT % 68.3 % (42.8-82.8); PLATELET COUNT 192 K/MM3 (134-434); RBC 3.71 M/mm3 (4.00-5.60); RDW 16.4 % (11.9-15.9); WHITE BLOOD COUNT 3.5 K/mm3 (4.0-10.0)
[2020-03-21 10:51] LABS: ARTERIAL BLD GAS O2 SATURATION 99.5 mmHg (95-98); ARTERIAL BLOOD GAS BASE EXCESS -15.2 mmol/L (-2-2); ARTERIAL BLOOD GAS PO2 296.5 mmHg (80-100)
[2020-03-21 10:55] LABS: ARTERIAL BLOOD GAS pH 7.176 (7.350-7.450)
[2020-03-21 10:56] LABS: VENT MODE A/C; VENT RATE 16
[2020-03-21 10:56] LABS: PROTHROMBIN TIME (PATIENT) 12.1 SEC (9.7-13.0)
[2020-03-21 10:58] LABS: ACTIVATED PTT 33.7 SECONDS (25.2-36.5)
[2020-03-21 10:59] LABS: PH,URINE 5.5 (5.0-8.0); URINE APPEARANCE CLEAR; URINE BILIRUBIN NEGATIVE (NEGATIVE); URINE COLOR YELLOW; URINE GLUCOSE (UA) NEGATIVE (NEGATIVE); URINE KETONE NEGATIVE (NEGATIVE); URINE LEUK ESTERASE NEGATIVE (NEGATIVE); URINE NITRITE NEGATIVE (NEGATIVE); URINE PROTEIN NEGATIVE (NEGATIVE); URINE UROBILINOGEN 0.2 mg/dL (0.2-1.0)
[2020-03-21 11:04] LABS: CHLORIDE 114 mmol/L (98-107); POTASSIUM 4.6 mmol/L (3.5-5.1); SODIUM 144 mmol/L (136-145)
[2020-03-21 11:07] LABS: ALBUMIN 3.2 g/dl (3.4-5.0); ANION GAP 15 MMOL/L (8-16); BLOOD UREA NITROGEN 30.4 mg/dL (7-18); CALCIUM 7.5 mg/dL (8.5-10.1); CO2 15 mmol/L (21-32); GLUCOSE,RANDOM 142 mg/dL (74-106)
[2020-03-21 11:10] LABS: CREATININE 2.8 mg/dL (0.55-1.3); SGPT/ALT 24 U/L (13-61)
[2020-03-21 11:11] LABS: SGOT/AST 14 U/L (15-37)
[2020-03-21 11:12] LABS: BILIRUBIN,TOTAL 0.2 mg/dL (0.2-1)
[2020-03-21 11:13] LABS: ALK PHOS 90 U/L (45-117); TOT PROT 5.6 g/dl (6.4-8.2)
[2020-03-21 11:14] LABS: COCAINE, UR NEGATIVE ng/ml (CUTOFF=300); METHADONE, UR NEGATIVE ng/ml (CUTOFF=300); OPIATES, URI NEGATIVE ng/ml (CUTOFF=300); PHENCYCLIDINE,URINE NEGATIVE ng/ml (CUTOFF=25); URINE BARBITURATES NEGATIVE ng/ml (CUTOFF=200); URINE BENZODIAZEPINES NEGATIVE ng/ml (CUTOFF=200)
[2020-03-21 11:15] LABS: URINE AMPHETAMINES NEGATIVE ng/ml (CUTOFF=500)
[2020-03-21] MEDS ORDERED: NOREPINEPHRINE BITARTRATE 4,000 MCG in DEXTROSE 5%-WATER - 496 ML IV SCH (11:15)
[2020-03-21] MEDS ORDERED: FENTANYL NS IVPB 500 MCG/100 ML BAG IVPB ONE (11:17)
[2020-03-21] MEDS ORDERED: MIDAZOLAM 100 MG/100 ML MG IVPB ONE (11:17)
[2020-03-21] MEDS: FENTANYL NS IVPB 500 MCG/100 ML BAG IVPB SCH (11:25)
[2020-03-21] MEDS ORDERED: SODIUM CHLORIDE 1,973 ML IV ONE (11:33)
[2020-03-21] MEDS ORDERED: VANCOMYCIN 1 GM in D5W (PRE-DOCKED) 1,000 MG/250 ML IVPB ONE (12:12)
[2020-03-21] MEDS ORDERED: MEROPENEM 1 GM in DEXTROSE 5%-WATER 100 ML IVPB ONE (12:12)
[2020-03-21] MEDS ORDERED: AZITHROMYCIN IVPB 500 MG in DEXTROSE 5%-WATER - 250 ML IVPB ONE (12:14)
[2020-03-21] MEDS ORDERED: MEROPENEM 1 GM VIAL (RESTRICTED TO ID) IVPB ONE (12:33)
[2020-03-21] MEDS ORDERED: VANCOMYCIN 1 GRAM (PRE-DOCKED) 1,000 MG/250 ML BAG IVPB ONE (12:34)
[2020-03-21] MEDS ORDERED: AZITHROMYCIN IVPB 500 MG/250 ML BAG IVPB ONE (12:34)
[2020-03-21 15:13] LABS: LIPASE 264 U/L (73-393)
[2020-03-21] MEDS ORDERED: DEXTROSE 5%-0.45% SALINE 1,000 ML IV SCH (16:00)
[2020-03-21] MEDS ORDERED: VASOPRESSIN 20 UNITS/ML VIAL IV ONE (16:30)
[2020-03-21] MEDS ORDERED: HYDROCORTISONE SOD SUCCINATE 100 MG/2 ML VIAL IVPB ONE (16:43)
[2020-03-21] MEDS: VASOPRESSIN 40 UNITS in SODIUM CHLORIDE 98 ML IVPB SCH (16:49)
[2020-03-21] MEDS ORDERED: HEPARIN NA (PORCINE) 5,000 UNITS/ML 1ML VIAL IVPUSH PRN ×2 (16:55)
[2020-03-21] MEDS ORDERED: HEPARIN INFUSION - 25,000 UNITS/500 ML INFUS.BAG IVPB SCH (17:00)
[2020-03-21] MEDS ORDERED: VASOPRESSIN 40 UNITS in SODIUM CHLORIDE 98 ML IVPB SCH (17:15)
[2020-03-21] MEDS ORDERED: HEPARIN INFUSION - 25,000 UNITS/500 ML INFUS.BAG IVPB ONE (17:48)
[2020-03-21] MEDS ORDERED: HYDROCORTISONE SOD SUCCINATE 100 MG/2 ML VIAL ONE (17:48)
[2020-03-21] MEDS: MIDAZOLAM IN 0.9 % SOD.CHLORID 100 MG/100 ML PLAST..BAG IVPB SCH (18:05)
[2020-03-21] MEDS ORDERED: SODIUM CHLORIDE 1,000 ML IV STA (19:03)
[2020-03-21 19:37] LABS: MAGNESIUM 2.1 mg/dL (1.8-2.4)
[2020-03-21] MEDS ORDERED: GlUCAGON HUMAN RECOMBINANT 1 MG/VIAL IVPUSH ONE (19:50)
[2020-03-21] MEDS ORDERED: DEXTROSE 50%-WATER - 25 GM/50 ML VIAL IVPUSH ONE (19:51)
[2020-03-21] MEDS ORDERED: DEXTROSE 50%-WATER 25 GM/50 ML DISP.SYRIN ONE (20:01)
[2020-03-21] MEDS ORDERED: CALCIUM GLUCONATE 10% - 1,000 MG/10 ML VIAL IVPUSH ONE (20:22)
[2020-03-21] MEDS ORDERED: LEVOCARNITINE IVPB ONE (20:30)
[2020-03-21] MEDS ORDERED: SODIUM CHLORIDE IVPB ONE (20:30)
[2020-03-21] MEDS ORDERED: SODIUM BICARBONATE 8.4% 50 MEQ/50 ML DISP.SYRIN IVPUSH ONE (21:09)
[2020-03-21] MEDS ORDERED: ACETYLCYSTEINE INJECTION 20% 9,900 MG in DEXTROSE 5%-WATER - 250 ML IVPB ONE (22:02)
[2020-03-21] MEDS: CHLORHEXIDINE GLUCONATE 4% CLEANSER FOR DECOLONIZATION TP SCH (23:02)
[2020-03-21] MEDS: MUPIROCIN 2% TOPICAL OINTMENT FOR DECOLONIZATION NS SCH (23:02)
[2020-03-22 00:33] LABS: ARTERIAL BLD GAS O2 SATURATION 99.1 mmHg (95-98); ARTERIAL BLOOD GAS BASE EXCESS -20.1 mmol/L (-2-2); ARTERIAL BLOOD GAS PO2 232.4 mmHg (80-100)
[2020-03-22 00:34] LABS: ALLENS TEST POSITIVE; PT'S TEMP 95.3
[2020-03-22 00:35] LABS: VENT MODE A/C; VENT RATE 16
[2020-03-22 00:37] LABS: ARTERIAL BLOOD GAS pH 7.057 (7.350-7.450)
[2020-03-22 01:30] LABS: ALBUMIN 2.3 g/dl (3.4-5.0); BILIRUBIN,TOTAL 0.2 mg/dL (0.2-1); BLOOD UREA NITROGEN 25.6 mg/dL (7-18); CREATININE 2.8 mg/dL (0.55-1.3); POTASSIUM 4.2 mmol/L (3.5-5.1); TOT PROT 4.5 g/dl (6.4-8.2)
[2020-03-22 01:38] LABS: CALCIUM 6.8 mg/dL (8.5-10.1)
[2020-03-22] MEDS ORDERED: CALCIUM GLUCONATE 10% - 1,000 MG/10 ML VIAL IVPB ONE ×2 (01:39→20:04)
[2020-03-22] MEDS ORDERED: DOPAMINE 400 MG/D5W - 400,000 MCG/250 ML INFUS.BAG IVPB SCH (01:45)
[2020-03-22] MEDS ORDERED: MEROPENEM 1 GM VIAL (RESTRICTED TO ID) IVPB ONE ×3 (01:46→15:35)
[2020-03-22] MEDS ORDERED: DEXTROSE 5%-WATER 100 ML IVPB ONE ×3 (01:46→15:36)
[2020-03-22] MEDS: SODIUM BICARBONATE 8.4% 50 MEQ/50 ML DISP.SYRIN IVPUSH SCH ×7 (02:19→21:30)
[2020-03-22] MEDS: SODIUM CHLORIDE IVPB SCH ×6 (02:21→22:59)
[2020-03-22] MEDS: LEVOCARNITINE IVPB SCH ×6 (02:21→22:59)
[2020-03-22] MEDS: MEROPENEM 1 GM in DEXTROSE 5%-WATER 100 ML IVPB SCH ×4 (02:22→19:27)
[2020-03-22] MEDS ORDERED: ACETYLCYSTEINE INJECTION 20% 3,300 MG in DEXTROSE 5%-WATER - 500 ML IVPB ONE ×2 (03:46→04:45)
[2020-03-22 05:11] LABS: ARTERIAL BLD GAS O2 SATURATION 97.9 mmHg (95-98); ARTERIAL BLOOD GAS BASE EXCESS -19.8 mmol/L (-2-2); ARTERIAL BLOOD GAS PO2 143.8 mmHg (80-100)
[2020-03-22 05:12] LABS: ALLENS TEST POSITIVE
[2020-03-22 05:13] LABS: PT'S TEMP 96.3; VENT MODE A/C; VENT RATE 16
[2020-03-22 05:14] LABS: ARTERIAL BLOOD GAS pH 7.071 (7.350-7.450)
[2020-03-22] MEDS ORDERED: SODIUM CHLORIDE 0.45% 1,000 ML with SODIUM BICARBONATE 8.4% - 75 MEQ IVPB SCH ×2 (05:30→05:31)
[2020-03-22 07:24] LABS: HEMATOCRIT 43.3 % (35.4-49); HEMOGLOBIN 14.1 GM/dL (11.7-16.9); MCH 33.8 pg (25.7-33.7); MCHC 32.7 g/dl (32.0-35.9); MEAN CELL VOLUME 103.5 fl (80-96); MONO % 0.9 % (3.8-10.2); NEUT % 96.1 % (42.8-82.8); PLATELET COUNT 223 K/MM3 (134-434); RBC 4.18 M/mm3 (4.00-5.60); RDW 15.9 % (11.9-15.9)
[2020-03-22 07:33] LABS: INR 1.7 (0.83-1.09); PROTHROMBIN TIME (PATIENT) 20.2 SEC (9.7-13.0)
[2020-03-22 07:35] LABS: ACTIVATED PTT 37.6 SECONDS (25.2-36.5)
[2020-03-22 07:41] LABS: POTASSIUM 4.2 mmol/L (3.5-5.1)
[2020-03-22 07:47] LABS: ALBUMIN 2.7 g/dl (3.4-5.0); CALCIUM 7.1 mg/dL (8.5-10.1)
[2020-03-22 07:48] LABS: BLOOD UREA NITROGEN 23.3 mg/dL (7-18)
[2020-03-22 07:50] LABS: CREATININE 2.9 mg/dL (0.55-1.3)
[2020-03-22 07:51] LABS: PHOSPHOROUS 3.3 mg/dL (2.5-4.9)
[2020-03-22 07:52] LABS: BILIRUBIN,TOTAL 1.2 mg/dL (0.2-1); TOT PROT 5.1 g/dl (6.4-8.2)
[2020-03-22] MEDS ORDERED: PT OWN MED DRAWER 7, Y5N ONE ×3 (08:19→19:14)
[2020-03-22] MEDS: MUPIROCIN 2% TOPICAL OINTMENT FOR DECOLONIZATION NS SCH ×2 (09:12→21:30)
[2020-03-22] MEDS ORDERED: VANCOMYCIN 1 GM in D5W (PRE-DOCKED) 1,000 MG/250 ML IVPB SCH (10:00)
[2020-03-22] MEDS ORDERED: AZITHROMYCIN IVPB 500 MG in DEXTROSE 5%-WATER - 250 ML IVPB SCH (10:00)
[2020-03-22] MEDS: NOREPINEPHRINE BITARTRATE 16,000 MCG in SODIUM CHLORIDE 484 ML IV SCH (10:00)
[2020-03-22 10:14] LABS: ANISOCYTOSIS 1+; MACROCYTOSIS 1+; PLATELET ESTIMATE NORMAL
[2020-03-22 11:08] LABS: ARTERIAL BLD GAS O2 SATURATION 97.8 mmHg (95-98); ARTERIAL BLOOD GAS BASE EXCESS -17.4 mmol/L (-2-2); ARTERIAL BLOOD GAS PO2 130.5 mmHg (80-100)
[2020-03-22 11:09] LABS: ALLENS TEST POSITIVE
[2020-03-22 11:10] LABS: VENT MODE AC; VENT RATE 22
[2020-03-22 11:11] LABS: ARTERIAL BLOOD GAS pH 7.155 (7.350-7.450)
[2020-03-22] MEDS: SODIUM BICARBONATE 8.4% - 150 MEQ in DEXTROSE 5%-WATER - 950 ML IVPB SCH ×2 (12:04→17:47)
[2020-03-22] MEDS: HEPARIN NA (PORCINE) 5,000 UNITS/ML 1ML VIAL SQ SCH ×2 (14:01→21:30)
[2020-03-22] MEDS: FENTANYL NS IVPB 500 MCG/100 ML BAG IVPB SCH (15:39)
[2020-03-22 16:19] LABS: ARTERIAL BLD GAS O2 SATURATION 98.2 mmHg (95-98); ARTERIAL BLOOD GAS BASE EXCESS -10.7 mmol/L (-2-2); ARTERIAL BLOOD GAS PO2 130.8 mmHg (80-100); ARTERIAL BLOOD GAS pH 7.252 (7.350-7.450)
[2020-03-22 16:21] LABS: VENT MODE A/C
[2020-03-22 16:22] LABS: VENT RATE 18
[2020-03-22] MEDS ORDERED: WATER IVPB ONE (16:45)
[2020-03-22] MEDS ORDERED: ACETYLCYSTEINE IVPB ONE (16:45)
[2020-03-22] MEDS ORDERED: DEXTROSE 5% IVPB ONE (16:45)
[2020-03-22] MEDS: PANTOPRAZOLE SODIUM 40 MG VIAL IVPUSH SCH (17:25)
[2020-03-22] MEDS: VASOPRESSIN 40 UNITS in SODIUM CHLORIDE 98 ML IVPB SCH (17:44)
[2020-03-22] MEDS: MIDAZOLAM IN 0.9 % SOD.CHLORID 100 MG/100 ML PLAST..BAG IVPB SCH (19:26)
[2020-03-22 20:34] LABS: ARTERIAL BLD GAS O2 SATURATION 98.3 mmHg (95-98); ARTERIAL BLOOD GAS BASE EXCESS -8.5 mmol/L (-2-2); ARTERIAL BLOOD GAS PO2 131.6 mmHg (80-100)
[2020-03-22 20:35] LABS: ALLENS TEST POSITIVE
[2020-03-22 20:36] LABS: VENT MODE A/C; VENT RATE 22
[2020-03-22] MEDS: CHLORHEXIDINE GLUCONATE 4% CLEANSER FOR DECOLONIZATION TP SCH (21:30)
[2020-03-23] MEDS ORDERED: SODIUM BICARBONATE 8.4% 50 MEQ/50 ML VIAL ONE ×2 (00:34→00:44)
[2020-03-23] MEDS: SODIUM CHLORIDE IVPB SCH ×3 (01:14→09:33)
[2020-03-23] MEDS: SODIUM BICARBONATE 8.4% - 150 MEQ in DEXTROSE 5%-WATER - 950 ML IVPB SCH ×2 (01:14→11:04)
[2020-03-23] MEDS: LEVOCARNITINE IVPB SCH ×3 (01:14→09:33)
[2020-03-23] MEDS: SODIUM BICARBONATE 8.4% 50 MEQ/50 ML DISP.SYRIN IVPUSH SCH ×3 (01:14→09:21)
[2020-03-23] MEDS: FENTANYL NS IVPB 500 MCG/100 ML BAG IVPB SCH ×3 (01:23→22:20)
[2020-03-23 01:58] LABS: ARTERIAL BLD GAS O2 SATURATION 98.5 mmHg (95-98); ARTERIAL BLOOD GAS BASE EXCESS -2.4 mmol/L (-2-2); ARTERIAL BLOOD GAS PO2 127.1 mmHg (80-100)
[2020-03-23 01:59] LABS: ALLENS TEST POSITIVE
[2020-03-23 02:00] LABS: VENT MODE A/C; VENT RATE 22
[2020-03-23] MEDS ORDERED: MEROPENEM 1 GM VIAL (RESTRICTED TO ID) IVPB ONE ×3 (04:01→15:10)
[2020-03-23] MEDS ORDERED: DEXTROSE 5%-WATER 100 ML IVPB ONE ×2 (04:02→15:02)
[2020-03-23] MEDS: MEROPENEM 1 GM in DEXTROSE 5%-WATER 100 ML IVPB SCH ×2 (04:04→15:04)
[2020-03-23] MEDS: HEPARIN NA (PORCINE) 5,000 UNITS/ML 1ML VIAL SQ SCH ×3 (05:35→22:19)
[2020-03-23 05:36] LABS: ARTERIAL BLD GAS O2 SATURATION 98.1 mmHg (95-98); ARTERIAL BLOOD GAS BASE EXCESS -4.7 mmol/L (-2-2); ARTERIAL BLOOD GAS PO2 115.5 mmHg (80-100); ARTERIAL BLOOD GAS pH 7.362 (7.350-7.450)
[2020-03-23 05:40] LABS: ALLENS TEST POSITIVE
[2020-03-23 05:41] LABS: VENT MODE A/C; VENT RATE 22
[2020-03-23 07:05] LABS: BASO % 0.1 % (0-2.0); HEMATOCRIT 38.2 % (35.4-49); LYMPH % 8.6 % (8-40); MCH 33.6 pg (25.7-33.7); MCHC 34.1 g/dl (32.0-35.9); MEAN CELL VOLUME 98.7 fl (80-96); MEAN PLT VOLUME 10.3 fl (7.5-11.1); MONO % 2.2 % (3.8-10.2); NEUT % 89.1 % (42.8-82.8); PLATELET COUNT 109 K/MM3 (134-434); RBC 3.88 M/mm3 (4.00-5.60); RDW 16.1 % (11.9-15.9); WHITE BLOOD COUNT 10.1 K/mm3 (4.0-10.0)
[2020-03-23 07:21] LABS: POTASSIUM 3.1 mmol/L (3.5-5.1)
[2020-03-23 07:24] LABS: ALBUMIN 1.8 g/dl (3.4-5.0); BLOOD UREA NITROGEN 26.8 mg/dL (7-18)
[2020-03-23 07:28] LABS: PHOSPHOROUS 4.6 mg/dL (2.5-4.9)
[2020-03-23 07:29] LABS: BILIRUBIN,TOTAL 0.5 mg/dL (0.2-1); CREATININE 2.8 mg/dL (0.55-1.3)
[2020-03-23 07:30] LABS: MAGNESIUM 1.3 mg/dL (1.8-2.4)
[2020-03-23 07:31] LABS: TOT PROT 3.4 g/dl (6.4-8.2)
[2020-03-23 07:34] LABS: CALCIUM 5.5 mg/dL (8.5-10.1)
[2020-03-23] MEDS ORDERED: CALCIUM GLUCONATE 10% - 1,000 MG/10 ML VIAL IVPB ONE ×2 (07:45→18:53)
[2020-03-23] MEDS ORDERED: PT OWN MED DRAWER 7, Y5N ONE ×2 (07:45→11:15)
[2020-03-23 08:30] LABS: ARTERIAL BLD GAS O2 SATURATION 97.2 mmHg (95-98); ARTERIAL BLOOD GAS BASE EXCESS -1.4 mmol/L (-2-2); ARTERIAL BLOOD GAS PO2 96.7 mmHg (80-100); ARTERIAL BLOOD GAS pH 7.375 (7.350-7.450)
[2020-03-23 08:31] LABS: VENT MODE A/C; VENT RATE 22
[2020-03-23] MEDS: MUPIROCIN 2% TOPICAL OINTMENT FOR DECOLONIZATION NS SCH ×2 (09:09→22:18)
[2020-03-23] MEDS: PANTOPRAZOLE SODIUM 40 MG VIAL IVPUSH SCH (09:21)
[2020-03-23] MEDS: KCL 10 MEQ IVPB 10 MEQ/100 ML INFUS.BAG IVPB SCH ×2 (09:21→11:30)
[2020-03-23] MEDS: NOREPINEPHRINE BITARTRATE 16,000 MCG in SODIUM CHLORIDE 484 ML IV SCH (09:45)
[2020-03-23 10:30] LABS: N-TERMINAL BNP 2139.6 pg/ml (5-125)
[2020-03-23] MEDS ORDERED: SODIUM BICARBONATE 8.4% - 150 MEQ in DEXTROSE 5%-WATER - 950 ML IVPB SCH (10:34)
[2020-03-23] MEDS ORDERED: MAGNESIUM 2GM/50ML STERILE WATER IVPB IVPB ONE (11:45)
[2020-03-23 14:14] LABS: ARTERIAL BLD GAS O2 SATURATION 96.4 mmHg (95-98); ARTERIAL BLOOD GAS BASE EXCESS 0.6 mmol/L (-2-2); ARTERIAL BLOOD GAS PO2 82.9 mmHg (80-100)
[2020-03-23 14:18] LABS: VENT MODE A/C; VENT RATE 22
[2020-03-23 17:40] LABS: ARTERIAL BLD GAS O2 SATURATION 96.7 mmHg (95-98); ARTERIAL BLOOD GAS BASE EXCESS -0.8 mmol/L (-2-2); ARTERIAL BLOOD GAS PO2 84.2 mmHg (80-100); ARTERIAL BLOOD GAS pH 7.435 (7.350-7.450)
[2020-03-23 17:42] LABS: VENT MODE A/C; VENT RATE 22
[2020-03-23] MEDS: MIDAZOLAM IN 0.9 % SOD.CHLORID 100 MG/100 ML PLAST..BAG IVPB SCH (18:28)
[2020-03-23] MEDS ORDERED: SODIUM BICARBONATE 8.4% - 75 MEQ in DEXTROSE 5%-WATER - 950 ML IVPB SCH (19:01)
[2020-03-23] MEDS ORDERED: SODIUM CHLORIDE 0.9%/KCL 20 MEQ/1,000 ML INFUS.BAG IV SCH (20:15)
[2020-03-23 20:22] LABS: POTASSIUM 3.1 mmol/L (3.5-5.1)
[2020-03-23 20:24] LABS: ALBUMIN 1.7 g/dl (3.4-5.0); BLOOD UREA NITROGEN 29.2 mg/dL (7-18)
[2020-03-23 20:29] LABS: BILIRUBIN,TOTAL 0.6 mg/dL (0.2-1); TOT PROT 3.4 g/dl (6.4-8.2)
[2020-03-23 20:41] LABS: CALCIUM 6.1 mg/dL (8.5-10.1)
[2020-03-23] MEDS ORDERED: DEXTROSE 50%-WATER - 25 GM/50 ML VIAL IVPUSH ONE (20:43)
[2020-03-23] MEDS ORDERED: DEXTROSE 50%-WATER 25 GM/50 ML DISP.SYRIN ONE (20:45)
[2020-03-23 20:51] LABS: ARTERIAL BLD GAS O2 SATURATION 96.6 mmHg (95-98); ARTERIAL BLOOD GAS BASE EXCESS 0.6 mmol/L (-2-2); ARTERIAL BLOOD GAS PO2 81.3 mmHg (80-100); ARTERIAL BLOOD GAS pH 7.458 (7.350-7.450)
[2020-03-23 21:14] LABS: ALLENS TEST POSITIVE; VENT MODE A/C; VENT RATE 22
[2020-03-23] MEDS ORDERED: GLYCERIN 1 RECTAL SUPPOSITORY, ADULT PR ONE (21:20)
[2020-03-23] MEDS: CHLORHEXIDINE GLUCONATE 4% CLEANSER FOR DECOLONIZATION TP SCH (22:18)
[2020-03-23 23:49] LABS: ARTERIAL BLD GAS O2 SATURATION 94.8 mmHg (95-98); ARTERIAL BLOOD GAS BASE EXCESS -2.7 mmol/L (-2-2); ARTERIAL BLOOD GAS PO2 75.8 mmHg (80-100); ARTERIAL BLOOD GAS pH 7.367 (7.350-7.450)
[2020-03-23 23:53] LABS: VENT MODE A/C; VENT RATE 18
[2020-03-24] MEDS: D5-NS + 20 MEQ KCL - 20 MEQ/1,000 ML INFUS.BAG IV SCH (01:07)
[2020-03-24] MEDS ORDERED: DEXTROSE 50%-WATER - 25 GM/50 ML VIAL IVPUSH ONE (01:15)
[2020-03-24] MEDS ORDERED: MEROPENEM 1 GM VIAL (RESTRICTED TO ID) IVPB ONE ×2 (01:25→13:17)
[2020-03-24] MEDS ORDERED: DEXTROSE 5%-WATER 100 ML IVPB ONE ×2 (01:25→13:17)
[2020-03-24 03:07] LABS: ALBUMIN 1.5 g/dl (3.4-5.0); BLOOD UREA NITROGEN 30.6 mg/dL (7-18)
[2020-03-24 03:12] LABS: BILIRUBIN,TOTAL 0.5 mg/dL (0.2-1)
[2020-03-24] MEDS: MEROPENEM 1 GM in DEXTROSE 5%-WATER 100 ML IVPB SCH (03:25)
[2020-03-24 04:07] LABS: POTASSIUM 2.9 mmol/L (3.5-5.1)
[2020-03-24 04:08] LABS: CALCIUM 6.1 mg/dL (8.5-10.1)
[2020-03-24] MEDS ORDERED: CALCIUM GLUCONATE 10% - 1,000 MG/10 ML VIAL IVPUSH ONE ×2 (04:09→09:04)
[2020-03-24] MEDS: KCL 10 MEQ IVPB 10 MEQ/100 ML INFUS.BAG IVPB SCH ×2 (04:33→05:57)
[2020-03-24] MEDS: HEPARIN NA (PORCINE) 5,000 UNITS/ML 1ML VIAL SQ SCH (05:59)
[2020-03-24 08:02] LABS: BASO % 0.1 % (0-2.0); HEMATOCRIT 37.2 % (35.4-49); HEMOGLOBIN 12.6 GM/dL (11.7-16.9); LYMPH % 1.3 % (8-40); MCH 33.3 pg (25.7-33.7); MCHC 33.8 g/dl (32.0-35.9); MEAN CELL VOLUME 98.6 fl (80-96); MEAN PLT VOLUME 10.6 fl (7.5-11.1); NEUT % 97.6 % (42.8-82.8); PLATELET COUNT 57 K/MM3 (134-434); RBC 3.77 M/mm3 (4.00-5.60); RDW 16.1 % (11.9-15.9)
[2020-03-24 08:09] LABS: POTASSIUM 3.7 mmol/L (3.5-5.1)
[2020-03-24] MEDS ORDERED: NOREPINEPHRINE D5W PREMIX 16,000 MCG/500 ML BAG IVPB ONE (08:11)
[2020-03-24] MEDS ORDERED: NOREPINEPHRINE BITARTRATE 4 MG/4 ML ML IV ONE ×2 (08:12→08:15)
[2020-03-24 08:13] LABS: ALBUMIN 1.6 g/dl (3.4-5.0); BLOOD UREA NITROGEN 31.5 mg/dL (7-18); MAGNESIUM 1.8 mg/dL (1.8-2.4)
[2020-03-24 08:16] LABS: PHOSPHOROUS 5.3 mg/dL (2.5-4.9)
[2020-03-24 08:17] LABS: BILIRUBIN,TOTAL 0.8 mg/dL (0.2-1); TOT PROT 3.4 g/dl (6.4-8.2)
[2020-03-24] MEDS: NOREPINEPHRINE BITARTRATE 16,000 MCG in SODIUM CHLORIDE 484 ML IV SCH (08:17)
[2020-03-24 08:33] LABS: CALCIUM 6.2 mg/dL (8.5-10.1)
[2020-03-24] MEDS ORDERED: DEXTROSE 5% IVPB ONE ×2 (08:45→09:45)
[2020-03-24] MEDS ORDERED: ACETYLCYSTEINE IVPB ONE ×2 (08:45→09:45)
[2020-03-24] MEDS ORDERED: WATER IVPB ONE ×2 (08:45→09:45)
[2020-03-24] MEDS ORDERED: CALCIUM CHLORIDE 10% 1 GM/10 ML *VIAL IVPB ONE (08:52)
[2020-03-24] MEDS: PANTOPRAZOLE SODIUM 40 MG VIAL IVPUSH SCH (09:59)
[2020-03-24] MEDS: MUPIROCIN 2% TOPICAL OINTMENT FOR DECOLONIZATION NS SCH ×2 (10:00→22:14)
[2020-03-24] MEDS: FENTANYL NS IVPB 500 MCG/100 ML BAG IVPB SCH ×2 (10:14→18:23)
[2020-03-24 11:00] LABS: ANISOCYTOSIS 1+; MACROCYTOSIS 1+; OVALOCYTE 1+; PLATELET ESTIMATE DECREASED
[2020-03-24 11:09] LABS: INR 2.05 (0.83-1.09); PROTHROMBIN TIME (PATIENT) 24.7 SEC (9.7-13.0)
[2020-03-24 11:29] LABS: ARTERIAL BLOOD GAS BASE EXCESS -1.2 mmol/L (-2-2); ARTERIAL BLOOD GAS PO2 69.6 mmHg (80-100); ARTERIAL BLOOD GAS pH 7.394 (7.350-7.450)
[2020-03-24 11:34] LABS: ALLENS TEST POSITIVE; VENT MODE A/C; VENT RATE 18
[2020-03-24] MEDS ORDERED: ACETYLCYSTEINE INJECTION 20% 7,500 MG in DEXTROSE 5%-WATER - 1,000 ML IVPB ONE (13:45)
[2020-03-24] MEDS: MIDAZOLAM IN 0.9 % SOD.CHLORID 100 MG/100 ML PLAST..BAG IVPB SCH (18:24)
[2020-03-24] MEDS ORDERED: IBUPROFEN 100 MG/5 ML UNIT DOSE CUPS PO ONE (20:34)
[2020-03-24] MEDS: CHLORHEXIDINE GLUCONATE 4% CLEANSER FOR DECOLONIZATION TP SCH (22:14)
[2020-03-24 23:03] LABS: ARTERIAL BLD GAS O2 SATURATION 98.8 mmHg (95-98); ARTERIAL BLOOD GAS BASE EXCESS -0.3 mmol/L (-2-2); ARTERIAL BLOOD GAS PO2 134.3 mmHg (80-100); ARTERIAL BLOOD GAS pH 7.431 (7.350-7.450)
[2020-03-24 23:05] LABS: VENT MODE A/C; VENT RATE 18
[2020-03-25] MEDS: D5-NS + 20 MEQ KCL - 20 MEQ/1,000 ML INFUS.BAG IV SCH (01:30)
[2020-03-25] MEDS: FENTANYL NS IVPB 500 MCG/100 ML BAG IVPB SCH ×3 (05:01→19:47)
[2020-03-25 06:33] LABS: BASO % 0.1 % (0-2.0); EOS % 0.4 % (0-4.5); HEMATOCRIT 31.8 % (35.4-49); HEMOGLOBIN 10.9 GM/dL (11.7-16.9); MCH 33.8 pg (25.7-33.7); MCHC 34.3 g/dl (32.0-35.9); MEAN CELL VOLUME 98.3 fl (80-96); MEAN PLT VOLUME 10.5 fl (7.5-11.1); MONO % 1.4 % (3.8-10.2); NEUT % 95.1 % (42.8-82.8); RBC 3.23 M/mm3 (4.00-5.60); RDW 15.7 % (11.9-15.9); WHITE BLOOD COUNT 17.2 K/mm3 (4.0-10.0)
[2020-03-25 06:52] LABS: POTASSIUM 3.2 mmol/L (3.5-5.1)
[2020-03-25 06:55] LABS: ALBUMIN 1.4 g/dl (3.4-5.0); MAGNESIUM 1.8 mg/dL (1.8-2.4)
[2020-03-25 06:57] LABS: PLATELET COUNT 33 K/MM3 (134-434)
[2020-03-25 06:58] LABS: CREATININE 2.9 mg/dL (0.55-1.3); PHOSPHOROUS 4.1 mg/dL (2.5-4.9)
[2020-03-25 06:59] LABS: BILIRUBIN,TOTAL 0.7 mg/dL (0.2-1)
[2020-03-25 07:00] LABS: TOT PROT 3.3 g/dl (6.4-8.2)
[2020-03-25] MEDS: NOREPINEPHRINE BITARTRATE 16,000 MCG in SODIUM CHLORIDE 484 ML IV SCH (07:30)
[2020-03-25 07:47] LABS: CALCIUM 6.9 mg/dL (8.5-10.1)
[2020-03-25] MEDS ORDERED: PHYTONADIONE 10 MG/1 ML AMP IVPB ONE (08:30)
[2020-03-25] MEDS ORDERED: CALCIUM GLUCONATE 10% - 1,000 MG/10 ML VIAL IVPB SCH (08:30)
[2020-03-25] MEDS ORDERED: PT OWN MED DRAWER 7, Y5N ONE (08:40)
[2020-03-25] MEDS ORDERED: PHYTONADIONE 10 MG/1 ML AMP ONE (08:41)
[2020-03-25] MEDS ORDERED: ACETYLCYSTEINE INJECTION 20% 7,500 MG in DEXTROSE 5%-WATER - 1,000 ML IVPB ONE (08:52)
[2020-03-25] MEDS: MUPIROCIN 2% TOPICAL OINTMENT FOR DECOLONIZATION NS SCH ×2 (09:00→22:55)
[2020-03-25] MEDS: PANTOPRAZOLE SODIUM 40 MG VIAL IVPUSH SCH (09:00)
[2020-03-25] MEDS ORDERED: POTASSIUM CHLORIDE ORAL LIQUID 20 MEQ/15 ML NGT ONE (10:38)
[2020-03-25] MEDS ORDERED: DOCUSATE NA 100 MG/10 ML UNIT-DOSE CUPS PO ONE (10:39)
[2020-03-25 11:42] LABS: ARTERIAL BLD GAS O2 SATURATION 97.3 mmHg (95-98); ARTERIAL BLOOD GAS BASE EXCESS -1.2 mmol/L (-2-2); ARTERIAL BLOOD GAS PO2 93.5 mmHg (80-100)
[2020-03-25 11:43] LABS: ALLENS TEST POSITIVE
[2020-03-25 11:45] LABS: VENT RATE 18
[2020-03-25] MEDS: MIDAZOLAM IN 0.9 % SOD.CHLORID 100 MG/100 ML PLAST..BAG IVPB SCH (17:00)
[2020-03-25] MEDS: CHLORHEXIDINE GLUCONATE 4% CLEANSER FOR DECOLONIZATION TP SCH (22:55)
[2020-03-25] MEDS: SENNOSIDES 8.8 MG/5 ML BULK BOTTLE NGT SCH (23:29)
[2020-03-26 06:23] LABS: ARTERIAL BLD GAS O2 SATURATION 99.3 mmHg (95-98); ARTERIAL BLOOD GAS BASE EXCESS 0.4 mmol/L (-2-2); ARTERIAL BLOOD GAS PO2 168.5 mmHg (80-100); ARTERIAL BLOOD GAS pH 7.498 (7.350-7.450)
[2020-03-26 06:52] LABS: VENT MODE A/C
[2020-03-26 06:53] LABS: VENT RATE 18
[2020-03-26 07:22] LABS: HEMATOCRIT 28.9 % (35.4-49); MCHC 34.6 g/dl (32.0-35.9); MEAN CELL VOLUME 98.1 fl (80-96); MEAN PLT VOLUME 10.2 fl (7.5-11.1); RBC 2.95 M/mm3 (4.00-5.60); WHITE BLOOD COUNT 6.4 K/mm3 (4.0-10.0)
[2020-03-26 07:29] LABS: PLATELET COUNT 18 K/MM3 (134-434)
[2020-03-26 07:35] LABS: INR 1.14 (0.83-1.09); PROTHROMBIN TIME (PATIENT) 13.7 SEC (9.7-13.0)
[2020-03-26 07:37] LABS: POTASSIUM 3.4 mmol/L (3.5-5.1)
[2020-03-26 07:40] LABS: CALCIUM 7.5 mg/dL (8.5-10.1)
[2020-03-26 07:41] LABS: ALBUMIN 1.5 g/dl (3.4-5.0); BLOOD UREA NITROGEN 43.9 mg/dL (7-18)
[2020-03-26 07:44] LABS: BILIRUBIN,DIRECT 0.5 mg/dL (0.0-0.2); CREATININE 2.7 mg/dL (0.55-1.3); PHOSPHOROUS 4.1 mg/dL (2.5-4.9)
[2020-03-26 07:45] LABS: BILIRUBIN,TOTAL 0.8 mg/dL (0.2-1); TOT PROT 3.4 g/dl (6.4-8.2)
[2020-03-26] MEDS: NOREPINEPHRINE BITARTRATE 16,000 MCG in SODIUM CHLORIDE 484 ML IV SCH ×2 (07:55→09:29)
[2020-03-26] MEDS: PANTOPRAZOLE SODIUM 40 MG VIAL IVPUSH SCH (09:30)
[2020-03-26] MEDS: MUPIROCIN 2% TOPICAL OINTMENT FOR DECOLONIZATION NS SCH (09:31)
[2020-03-26] MEDS: FENTANYL NS IVPB 500 MCG/100 ML BAG IVPB SCH ×2 (09:36→11:29)
[2020-03-26] MEDS: MIDAZOLAM IN 0.9 % SOD.CHLORID 100 MG/100 ML PLAST..BAG IVPB SCH (17:00)
[2020-03-26] MEDS ORDERED: KCL 10 MEQ IVPB 10 MEQ/100 ML INFUS.BAG IVPB SCH (19:00)
[2020-03-26] MEDS: CHLORHEXIDINE GLUCONATE 4% CLEANSER FOR DECOLONIZATION TP SCH (21:18)
[2020-03-26] MEDS: POTASSIUM CHLORIDE ORAL LIQUID 20 MEQ/15 ML PO SCH (22:45)
[2020-03-26] MEDS: SENNOSIDES 8.8 MG/5 ML BULK BOTTLE NGT SCH (22:45)
[2020-03-27 06:15] LABS: ARTERIAL BLD GAS O2 SATURATION 98.1 mmHg (95-98); ARTERIAL BLOOD GAS BASE EXCESS 2.6 mmol/L (-2-2); ARTERIAL BLOOD GAS PO2 113.6 mmHg (80-100); ARTERIAL BLOOD GAS pH 7.395 (7.350-7.450)
[2020-03-27 06:16] LABS: ALLENS TEST POSITIVE; VENT MODE A/C; VENT RATE 18
[2020-03-27 06:53] LABS: BASO % 0.1 % (0-2.0); HEMATOCRIT 27.4 % (35.4-49); HEMOGLOBIN 9.4 GM/dL (11.7-16.9); LYMPH % 14.8 % (8-40); MCH 33.8 pg (25.7-33.7); MCHC 34.2 g/dl (32.0-35.9); MEAN CELL VOLUME 98.8 fl (80-96); MEAN PLT VOLUME 8.7 fl (7.5-11.1); MONO % 14.4 % (3.8-10.2); NEUT % 69.7 % (42.8-82.8); RBC 2.77 M/mm3 (4.00-5.60); RDW 15.9 % (11.9-15.9); WHITE BLOOD COUNT 2.7 K/mm3 (4.0-10.0)
[2020-03-27 07:03] LABS: PLATELET COUNT 22 K/MM3 (134-434)
[2020-03-27 07:06] LABS: POTASSIUM 3.9 mmol/L (3.5-5.1)
[2020-03-27 07:20] LABS: ALBUMIN 1.6 g/dl (3.4-5.0); CALCIUM 8.2 mg/dL (8.5-10.1)
[2020-03-27 07:21] LABS: MAGNESIUM 2.2 mg/dL (1.8-2.4)
[2020-03-27 07:23] LABS: BLOOD UREA NITROGEN 42.7 mg/dL (7-18); CREATININE 2.5 mg/dL (0.55-1.3)
[2020-03-27 07:24] LABS: BILIRUBIN,TOTAL 0.6 mg/dL (0.2-1); TOT PROT 3.7 g/dl (6.4-8.2)
[2020-03-27] MEDS: FENTANYL NS IVPB 500 MCG/100 ML BAG IVPB SCH ×2 (08:58→11:15)
[2020-03-27] MEDS: NOREPINEPHRINE BITARTRATE 16,000 MCG in SODIUM CHLORIDE 484 ML IV SCH (08:59)
[2020-03-27] MEDS: PANTOPRAZOLE SODIUM 40 MG VIAL IVPUSH SCH (09:48)
[2020-03-27] MEDS: POTASSIUM CHLORIDE ORAL LIQUID 20 MEQ/15 ML PO SCH ×2 (10:06→21:58)
[2020-03-27 11:12] LABS: PLATELET ESTIMATE DECREASED
[2020-03-27] MEDS: POLYETHYLENE GLYCOL 3350 119 GM BTL PO SCH (17:00)
[2020-03-27] MEDS ORDERED: SODIUM CHLORIDE 0.45% 1,000 ML IV SCH (17:30)
[2020-03-27] MEDS: AMINO ACIDS/PROTEIN HYDROLYS 30 ML LIQUID.PKT PO SCH (18:32)
[2020-03-27] MEDS: SENNOSIDES 8.8 MG/5 ML BULK BOTTLE NGT SCH (21:58)
[2020-03-27] MEDS: CHLORHEXIDINE GLUCONATE 4% CLEANSER FOR DECOLONIZATION TP SCH (21:58)
[2020-03-27] MEDS ORDERED: MIDAZOLAM HCL 2 MG/2 ML SINGLE DOSE VIAL IVPUSH ONE (22:19)
[2020-03-27] MEDS ORDERED: MIDAZOLAM HCL 2 MG/2 ML SINGLE DOSE VIAL ONE (22:22)
[2020-03-28 07:40] LABS: BASO % 0.4 % (0-2.0); EOS % 1.4 % (0-4.5); HEMATOCRIT 26.6 % (35.4-49); HEMOGLOBIN 9.1 GM/dL (11.7-16.9); LYMPH % 25.9 % (8-40); MCH 34.2 pg (25.7-33.7); MCHC 34.1 g/dl (32.0-35.9); MEAN CELL VOLUME 100.1 fl (80-96); MONO % 27.3 % (3.8-10.2); RBC 2.66 M/mm3 (4.00-5.60); RDW 15.8 % (11.9-15.9); WHITE BLOOD COUNT 2.6 K/mm3 (4.0-10.0)
[2020-03-28 07:51] LABS: PLATELET COUNT 14 K/MM3 (134-434)
[2020-03-28 07:57] LABS: POTASSIUM 4.8 mmol/L (3.5-5.1)
[2020-03-28 08:01] LABS: ALBUMIN 1.7 g/dl (3.4-5.0); BLOOD UREA NITROGEN 50.6 mg/dL (7-18); MAGNESIUM 2.2 mg/dL (1.8-2.4)
[2020-03-28 08:04] LABS: CREATININE 2.4 mg/dL (0.55-1.3); PHOSPHOROUS 4.2 mg/dL (2.5-4.9)
[2020-03-28 08:06] LABS: BILIRUBIN,TOTAL 0.6 mg/dL (0.2-1)
[2020-03-28] MEDS: NOREPINEPHRINE BITARTRATE 16,000 MCG in SODIUM CHLORIDE 484 ML IV SCH (08:15)
[2020-03-28] MEDS ORDERED: PT OWN MED DRAWER 7, Y5N ONE (08:46)
[2020-03-28] MEDS: AMINO ACIDS/PROTEIN HYDROLYS 30 ML LIQUID.PKT PO SCH ×2 (08:56→17:57)
[2020-03-28] MEDS: POLYETHYLENE GLYCOL 3350 119 GM BTL PO SCH (09:15)
[2020-03-28] MEDS: PANTOPRAZOLE SODIUM 40 MG VIAL IVPUSH SCH (09:16)
[2020-03-28] MEDS: POTASSIUM CHLORIDE ORAL LIQUID 20 MEQ/15 ML PO SCH (09:16)
[2020-03-28] MEDS ORDERED: MIDAZOLAM HCL 2 MG/2 ML SINGLE DOSE VIAL ONE ×2 (09:32→17:33)
[2020-03-28] MEDS: MIDAZOLAM HCL 2 MG/2 ML SINGLE DOSE VIAL IVPUSH ONE ×2 (09:52→16:01)
[2020-03-28] MEDS: FENTANYL NS IVPB 500 MCG/100 ML BAG IVPB SCH (12:14)
[2020-03-28 12:19] LABS: ANISOCYTOSIS 1+; MACROCYTOSIS 1+; PLATELET ESTIMATE DECREASED
[2020-03-28] MEDS: DEXMEDETOMIDINE IN 0.9 % NACL 200 MCG/50 ML EACH IVPB SCH (15:30)
[2020-03-28] MEDS ORDERED: MIDAZOLAM 100 MG in SODIUM CHLORIDE 100 ML IVPB SCH (17:45)
[2020-03-28] MEDS ORDERED: MIDAZOLAM 100 MG/100 ML MG IVPB ONE (20:08)
[2020-03-28] MEDS: MIDAZOLAM IN 0.9 % SOD.CHLORID 100 MG/100 ML PLAST..BAG IVPB SCH (20:16)
[2020-03-28 22:06] LABS: HEMATOCRIT 24.3 % (35.4-49); HEMOGLOBIN 8.2 GM/dL (11.7-16.9); MCH 34.2 pg (25.7-33.7); MCHC 33.9 g/dl (32.0-35.9); MEAN CELL VOLUME 100.7 fl (80-96); MEAN PLT VOLUME 7.7 fl (7.5-11.1); RBC 2.41 M/mm3 (4.00-5.60); WHITE BLOOD COUNT 2.9 K/mm3 (4.0-10.0)
[2020-03-28 22:18] LABS: PLATELET COUNT 31 K/MM3 (134-434)
[2020-03-28] MEDS: CHLORHEXIDINE GLUCONATE 4% CLEANSER FOR DECOLONIZATION TP SCH (22:52)
[2020-03-28] MEDS: SENNOSIDES 8.8 MG/5 ML BULK BOTTLE NGT SCH (22:52)
[2020-03-29 07:20] LABS: BASO % 0.4 % (0-2.0); HEMATOCRIT 26.3 % (35.4-49); HEMOGLOBIN 8.9 GM/dL (11.7-16.9); MCH 33.9 pg (25.7-33.7); MCHC 33.8 g/dl (32.0-35.9); MEAN CELL VOLUME 100.3 fl (80-96); MEAN PLT VOLUME 9.9 fl (7.5-11.1); MONO % 29.7 % (3.8-10.2); NEUT % 35.9 % (42.8-82.8); RBC 2.63 M/mm3 (4.00-5.60); RDW 15.6 % (11.9-15.9); WHITE BLOOD COUNT 3.3 K/mm3 (4.0-10.0)
[2020-03-29 07:30] LABS: PLATELET COUNT 33 K/MM3 (134-434)
[2020-03-29 07:43] LABS: CALCIUM 8.1 mg/dL (8.5-10.1)
[2020-03-29 07:44] LABS: ALBUMIN 1.8 g/dl (3.4-5.0); BLOOD UREA NITROGEN 60.8 mg/dL (7-18); MAGNESIUM 2.5 mg/dL (1.8-2.4)
[2020-03-29 07:46] LABS: CREATININE 2.2 mg/dL (0.55-1.3)
[2020-03-29 07:47] LABS: PHOSPHOROUS 3.9 mg/dL (2.5-4.9)
[2020-03-29 07:48] LABS: BILIRUBIN,TOTAL 0.8 mg/dL (0.2-1); TOT PROT 4.2 g/dl (6.4-8.2)
[2020-03-29] MEDS ORDERED: PT OWN MED DRAWER 7, Y5N ONE ×2 (07:54→21:06)
[2020-03-29] MEDS: AMINO ACIDS/PROTEIN HYDROLYS 30 ML LIQUID.PKT PO SCH ×2 (08:35→17:36)
[2020-03-29] MEDS: NOREPINEPHRINE BITARTRATE 16,000 MCG in SODIUM CHLORIDE 484 ML IV SCH (08:36)
[2020-03-29] MEDS: POLYETHYLENE GLYCOL 3350 119 GM BTL PO SCH (10:23)
[2020-03-29] MEDS: PANTOPRAZOLE SODIUM 40 MG VIAL IVPUSH SCH (10:24)
[2020-03-29 10:32] LABS: ANISOCYTOSIS 2+; MACROCYTOSIS 0; PLATELET ESTIMATE DECREASED
[2020-03-29] MEDS: DEXMEDETOMIDINE IN 0.9 % NACL 200 MCG/50 ML EACH IVPB SCH ×2 (12:30→21:30)
[2020-03-29] MEDS ORDERED: DESMOPRESSIN ACETATE 4 MCG/ML AMP IVPB ONE ×2 (13:15→19:52)
[2020-03-29] MEDS: FENTANYL NS IVPB 500 MCG/100 ML BAG IVPB SCH (14:05)
[2020-03-29] MEDS: SENNOSIDES 8.8 MG/5 ML BULK BOTTLE NGT SCH (21:31)
[2020-03-29] MEDS: CHLORHEXIDINE GLUCONATE 4% CLEANSER FOR DECOLONIZATION TP SCH (21:31)
[2020-03-29] MEDS: MIDAZOLAM IN 0.9 % SOD.CHLORID 100 MG/100 ML PLAST..BAG IVPB SCH (21:32)
[2020-03-29 23:42] LABS: POTASSIUM 5.5 mmol/L (3.5-5.1)
[2020-03-29 23:44] LABS: CALCIUM 8.3 mg/dL (8.5-10.1)
[2020-03-29 23:45] LABS: ALBUMIN 2.1 g/dl (3.4-5.0); BLOOD UREA NITROGEN 72.7 mg/dL (7-18)
[2020-03-29 23:49] LABS: BILIRUBIN,TOTAL 0.5 mg/dL (0.2-1); CREATININE 2.2 mg/dL (0.55-1.3)
[2020-03-29 23:51] LABS: TOT PROT 4.7 g/dl (6.4-8.2)
[2020-03-30] MEDS ORDERED: DEXTROSE 5%-WATER - 1,000 ML IV SCH (00:30)
[2020-03-30] MEDS ORDERED: MIDAZOLAM 100 MG/100 ML MG IVPB ONE (03:12)
[2020-03-30] MEDS: MIDAZOLAM IN 0.9 % SOD.CHLORID 100 MG/100 ML PLAST..BAG IVPB SCH (06:15)
[2020-03-30 06:58] LABS: BASO % 0.4 % (0-2.0); EOS % 1.3 % (0-4.5); HEMATOCRIT 26.7 % (35.4-49); HEMOGLOBIN 8.9 GM/dL (11.7-16.9); LYMPH % 22.8 % (8-40); MCH 33.7 pg (25.7-33.7); MCHC 33.3 g/dl (32.0-35.9); MEAN CELL VOLUME 101.1 fl (80-96); MEAN PLT VOLUME 10.7 fl (7.5-11.1); MONO % 29.5 % (3.8-10.2); PLATELET COUNT 42 K/MM3 (134-434); RBC 2.64 M/mm3 (4.00-5.60); RDW 15.6 % (11.9-15.9); WHITE BLOOD COUNT 4.5 K/mm3 (4.0-10.0)
[2020-03-30 07:18] LABS: POTASSIUM 5.2 mmol/L (3.5-5.1)
[2020-03-30 07:24] LABS: CALCIUM 8.3 mg/dL (8.5-10.1)
[2020-03-30 07:26] LABS: BLOOD UREA NITROGEN 68.9 mg/dL (7-18); MAGNESIUM 2.3 mg/dL (1.8-2.4)
[2020-03-30 07:29] LABS: CREATININE 2.1 mg/dL (0.55-1.3)
[2020-03-30 07:30] LABS: BILIRUBIN,TOTAL 0.6 mg/dL (0.2-1); TOT PROT 4.7 g/dl (6.4-8.2)
[2020-03-30] MEDS: FENTANYL NS IVPB 500 MCG/100 ML BAG IVPB SCH (07:39)
[2020-03-30] MEDS ORDERED: HYDROCHLOROTHIAZIDE 25 MG TABLET (FP) NGT ONE (07:56)
[2020-03-30] MEDS ORDERED: MIDAZOLAM HCL 2 MG/2 ML SINGLE DOSE VIAL IVPUSH ONE (08:33)
[2020-03-30] MEDS: NOREPINEPHRINE BITARTRATE 16,000 MCG in SODIUM CHLORIDE 484 ML IV SCH (09:50)
[2020-03-30] MEDS ORDERED: PT OWN MED DRAWER 7, Y5N ONE ×3 (09:53→22:32)
[2020-03-30] MEDS: PANTOPRAZOLE SODIUM 40 MG VIAL IVPUSH SCH (09:59)
[2020-03-30] MEDS: AMINO ACIDS/PROTEIN HYDROLYS 30 ML LIQUID.PKT PO SCH ×2 (10:01→20:55)
[2020-03-30] MEDS: POLYETHYLENE GLYCOL 3350 119 GM BTL PO SCH (10:01)
[2020-03-30] MEDS: DESMOPRESSIN ACETATE 4 MCG/ML AMP IVPB SCH ×2 (10:07→22:52)
[2020-03-30 10:22] LABS: ANISOCYTOSIS 1+; MACROCYTOSIS 1+; PLATELET ESTIMATE DECREASED
[2020-03-30 11:06] LABS: URINE APPEARANCE CLEAR; URINE BILIRUBIN NEGATIVE (NEGATIVE); URINE COLOR YELLOW; URINE GLUCOSE (UA) NEGATIVE (NEGATIVE); URINE KETONE NEGATIVE (NEGATIVE); URINE LEUK ESTERASE NEGATIVE (NEGATIVE); URINE NITRITE NEGATIVE (NEGATIVE); URINE PROTEIN NEGATIVE (NEGATIVE)
[2020-03-30] MEDS ORDERED: MIDAZOLAM IVPB SCH (12:45)
[2020-03-30] MEDS ORDERED: DEXTROSE 5% IVPB SCH (12:45)
[2020-03-30] MEDS ORDERED: WATER IVPB SCH (12:45)
[2020-03-30] MEDS: FENTANYL IVPB 500 MCG/100 ML BAG IVPB SCH ×2 (13:25→17:18)
[2020-03-30] MEDS: DEXMEDETOMIDINE IN 0.9 % NACL 200 MCG/50 ML EACH IVPB SCH (17:28)
[2020-03-30] MEDS ORDERED: HYDROCHLOROTHIAZIDE 25 MG TABLET (FP) PO ONE (18:54)
[2020-03-30] MEDS ORDERED: FENTANYL NS IVPB 500 MCG/100 ML BAG IVPB ONE (20:54)
[2020-03-30] MEDS: SENNOSIDES 8.8 MG/5 ML BULK BOTTLE NGT SCH (21:00)
[2020-03-30] MEDS: CHLORHEXIDINE GLUCONATE 4% CLEANSER FOR DECOLONIZATION TP SCH (21:00)
[2020-03-31 07:25] LABS: BASO % 0.2 % (0-2.0); EOS % 1.3 % (0-4.5); HEMATOCRIT 25.7 % (35.4-49); HEMOGLOBIN 8.3 GM/dL (11.7-16.9); LYMPH % 19.3 % (8-40); MCH 33.1 pg (25.7-33.7); MCHC 32.3 g/dl (32.0-35.9); MEAN CELL VOLUME 102.6 fl (80-96); MEAN PLT VOLUME 11.9 fl (7.5-11.1); MONO % 20.4 % (3.8-10.2); NEUT % 58.8 % (42.8-82.8); PLATELET COUNT 70 K/MM3 (134-434); RBC 2.51 M/mm3 (4.00-5.60); RDW 15.3 % (11.9-15.9); WHITE BLOOD COUNT 6.7 K/mm3 (4.0-10.0)
[2020-03-31 07:42] LABS: POTASSIUM 5.4 mmol/L (3.5-5.1)
[2020-03-31 07:49] LABS: ALBUMIN 2.1 g/dl (3.4-5.0); CALCIUM 8.4 mg/dL (8.5-10.1)
[2020-03-31 07:50] LABS: BLOOD UREA NITROGEN 69.3 mg/dL (7-18); MAGNESIUM 2.4 mg/dL (1.8-2.4)
[2020-03-31 07:53] LABS: CREATININE 2.3 mg/dL (0.55-1.3)
[2020-03-31 07:54] LABS: PHOSPHOROUS 4.7 mg/dL (2.5-4.9)
[2020-03-31 07:55] LABS: BILIRUBIN,TOTAL 0.4 mg/dL (0.2-1); TOT PROT 4.9 g/dl (6.4-8.2)
[2020-03-31] MEDS ORDERED: PT OWN MED DRAWER 7, Y5N ONE ×3 (08:53→20:57)
[2020-03-31] MEDS: AMINO ACIDS/PROTEIN HYDROLYS 30 ML LIQUID.PKT PO SCH ×2 (09:02→17:53)
[2020-03-31] MEDS: HYDROCHLOROTHIAZIDE 25 MG TABLET (FP) PO SCH ×2 (09:04→21:08)
[2020-03-31] MEDS: DESMOPRESSIN ACETATE 4 MCG/ML AMP IVPB SCH ×2 (09:04→21:08)
[2020-03-31] MEDS: PANTOPRAZOLE SODIUM 40 MG VIAL IVPUSH SCH (09:04)
[2020-03-31] MEDS: POLYETHYLENE GLYCOL 3350 119 GM BTL PO SCH (09:05)
[2020-03-31] MEDS: NOREPINEPHRINE BITARTRATE 16,000 MCG in SODIUM CHLORIDE 484 ML IV SCH (09:06)
[2020-03-31 11:17] LABS: ANISOCYTOSIS 2+; MACROCYTOSIS 0; PLATELET ESTIMATE DECREASED
[2020-03-31 11:20] LABS: PH,URINE 8.5 (5.0-8.0); URINE APPEARANCE CLEAR; URINE BILIRUBIN NEGATIVE (NEGATIVE); URINE COLOR YELLOW; URINE GLUCOSE (UA) NEGATIVE (NEGATIVE); URINE KETONE NEGATIVE (NEGATIVE); URINE LEUK ESTERASE NEGATIVE (NEGATIVE); URINE NITRITE NEGATIVE (NEGATIVE); URINE PROTEIN NEGATIVE (NEGATIVE)
[2020-03-31] MEDS: DEXMEDETOMIDINE IN 0.9 % NACL 200 MCG/50 ML EACH IVPB SCH (12:30)
[2020-03-31] MEDS: FENTANYL IVPB 500 MCG/100 ML BAG IVPB SCH ×2 (13:44→13:45)
[2020-03-31] MEDS ORDERED: SODIUM ZIRCONIUM CYCLOSILICATE (LOKELMA) 5 GM PACKET PO ONE (16:26)
[2020-03-31] MEDS ORDERED: DESMOPRESSIN ACETATE 4 MCG/ML AMP IVPB ONE (17:00)
[2020-03-31] MEDS: MIDAZOLAM 100 MG/100 ML MG IVPB SCH ×2 (17:50→17:51)
[2020-03-31] MEDS: INDOMETHACIN 25 MG CAPSULE PO SCH ×2 (18:10→21:08)
[2020-03-31] MEDS: CHLORHEXIDINE GLUCONATE 4% CLEANSER FOR DECOLONIZATION TP SCH (21:08)
[2020-03-31] MEDS: SENNOSIDES 8.8 MG/5 ML BULK BOTTLE NGT SCH (21:09)
[2020-04-01] MEDS: NOREPINEPHRINE BITARTRATE 16,000 MCG in SODIUM CHLORIDE 484 ML IV SCH ×2 (00:22→11:43)
[2020-04-01] MEDS ORDERED: MIDAZOLAM 100 MG/100 ML MG IVPB ONE (04:09)
[2020-04-01 07:25] LABS: BASO % 0.3 % (0-2.0); EOS % 1.1 % (0-4.5); HEMATOCRIT 24.5 % (35.4-49); HEMOGLOBIN 7.8 GM/dL (11.7-16.9); LYMPH % 13.1 % (8-40); MCH 33.4 pg (25.7-33.7); MEAN CELL VOLUME 104.2 fl (80-96); MEAN PLT VOLUME 11.8 fl (7.5-11.1); MONO % 8.7 % (3.8-10.2); NEUT % 76.8 % (42.8-82.8); PLATELET COUNT 107 K/MM3 (134-434); RBC 2.35 M/mm3 (4.00-5.60); RDW 15.6 % (11.9-15.9); WHITE BLOOD COUNT 12.1 K/mm3 (4.0-10.0)
[2020-04-01 07:46] LABS: POTASSIUM 5.2 mmol/L (3.5-5.1)
[2020-04-01 07:54] LABS: ALBUMIN 2.1 g/dl (3.4-5.0); BLOOD UREA NITROGEN 73.9 mg/dL (7-18)
[2020-04-01 07:55] LABS: CALCIUM 8.6 mg/dL (8.5-10.1)
[2020-04-01 07:56] LABS: BILIRUBIN,TOTAL 0.5 mg/dL (0.2-1); MAGNESIUM 2.3 mg/dL (1.8-2.4)
[2020-04-01 07:57] LABS: CREATININE 2.4 mg/dL (0.55-1.3)
[2020-04-01 07:58] LABS: PHOSPHOROUS 5.8 mg/dL (2.5-4.9)
[2020-04-01] MEDS ORDERED: PT OWN MED DRAWER 7, Y5N ONE ×2 (08:31→21:11)
[2020-04-01] MEDS: AMINO ACIDS/PROTEIN HYDROLYS 30 ML LIQUID.PKT PO SCH ×2 (09:06→17:27)
[2020-04-01] MEDS: DESMOPRESSIN ACETATE 4 MCG/ML AMP IVPB SCH ×2 (09:07→21:17)
[2020-04-01] MEDS: PANTOPRAZOLE SODIUM 40 MG VIAL IVPUSH SCH (09:07)
[2020-04-01] MEDS: HYDROCHLOROTHIAZIDE 25 MG TABLET (FP) PO SCH ×2 (09:07→21:19)
[2020-04-01] MEDS: INDOMETHACIN 25 MG CAPSULE NGT SCH ×2 (09:17→21:20)
[2020-04-01] MEDS: POLYETHYLENE GLYCOL 3350 119 GM BTL PO SCH (09:20)
[2020-04-01] MEDS ORDERED: HYDROmorphone HCl 2 MG/ML VIAL ONE (11:18)
[2020-04-01] MEDS ORDERED: HYDROmorphone HCl 2 MG/ML VIAL IVPB ONE (11:29)
[2020-04-01] MEDS ORDERED: VANCOMYCIN 1 GRAM (PRE-DOCKED) 1,000 MG/250 ML BAG IVPB ONE (12:14)
[2020-04-01] MEDS ORDERED: FENTANYL NS IVPB 500 MCG/100 ML BAG IVPB ONE (13:31)
[2020-04-01] MEDS: FENTANYL IVPB 500 MCG/100 ML BAG IVPB SCH ×2 (13:33→22:00)
[2020-04-01] MEDS ORDERED: DEXTROSE 5%-WATER - 1,000 ML IV SCH (18:30)
[2020-04-01] MEDS: DEXTROSE 5%-WATER - 1,000 ML IV SCH (19:15)
[2020-04-01] MEDS: MIDAZOLAM 100 MG/100 ML MG IVPB SCH (21:16)
[2020-04-01] MEDS: CHLORHEXIDINE GLUCONATE 4% CLEANSER FOR DECOLONIZATION TP SCH (21:19)
[2020-04-01] MEDS: SENNOSIDES 8.8 MG/5 ML BULK BOTTLE NGT SCH (21:20)
[2020-04-02] MEDS ORDERED: MIDAZOLAM 100 MG/100 ML MG IVPB ONE (03:07)
[2020-04-02] MEDS: FENTANYL IVPB 500 MCG/100 ML BAG IVPB SCH ×3 (05:00→19:57)
[2020-04-02] MEDS: MIDAZOLAM 100 MG/100 ML MG IVPB SCH ×2 (06:00→16:26)
[2020-04-02] MEDS: NOREPINEPHRINE D5W PREMIX 16,000 MCG/500 ML BAG IVPB SCH (07:00)
[2020-04-02] MEDS ORDERED: PT OWN MED DRAWER 7, Y5N ONE (09:01)
[2020-04-02] MEDS: DESMOPRESSIN ACETATE 4 MCG/ML AMP IVPB SCH ×2 (09:41→22:38)
[2020-04-02] MEDS: PANTOPRAZOLE SODIUM 40 MG VIAL IVPUSH SCH (09:41)
[2020-04-02] MEDS: AMINO ACIDS/PROTEIN HYDROLYS 30 ML LIQUID.PKT PO SCH ×2 (09:42→17:04)
[2020-04-02] MEDS: HYDROCHLOROTHIAZIDE 25 MG TABLET (FP) PO SCH ×2 (09:42→21:28)
[2020-04-02] MEDS: INDOMETHACIN 25 MG CAPSULE NGT SCH (09:42)
[2020-04-02] MEDS: POLYETHYLENE GLYCOL 3350 119 GM BTL PO SCH (09:42)
[2020-04-02 15:05] LABS: POTASSIUM 4.7 mmol/L (3.5-5.1)
[2020-04-02 15:06] LABS: CALCIUM 8.4 mg/dL (8.5-10.1)
[2020-04-02 15:07] LABS: BLOOD UREA NITROGEN 68.9 mg/dL (7-18); MAGNESIUM 2.1 mg/dL (1.8-2.4)
[2020-04-02 15:10] LABS: CREATININE 2.4 mg/dL (0.55-1.3); PHOSPHOROUS 6.2 mg/dL (2.5-4.9)
[2020-04-02 16:46] LABS: HEMATOCRIT 23.8 % (35.4-49); HEMOGLOBIN 7.5 GM/dL (11.7-16.9); MCH 32.8 pg (25.7-33.7); MCHC 31.7 g/dl (32.0-35.9); MEAN CELL VOLUME 103.3 fl (80-96); MEAN PLT VOLUME 12.2 fl (7.5-11.1); PLATELET COUNT 129 K/MM3 (134-434); RDW 15.7 % (11.9-15.9); WHITE BLOOD COUNT 19.7 K/mm3 (4.0-10.0)
[2020-04-02] MEDS: DEXTROSE 5%-WATER - 1,000 ML IV SCH (18:43)
[2020-04-02] MEDS ORDERED: ALBUTEROL SO4 2.5/IPRATROPIUM 0.5 INH SOL 3 ML VIAL.NEB. NEB ONE (19:02)
[2020-04-02 19:13] LABS: POTASSIUM 4.6 mmol/L (3.5-5.1)
[2020-04-02 19:15] LABS: BLOOD UREA NITROGEN 69.3 mg/dL (7-18); CALCIUM 8.1 mg/dL (8.5-10.1)
[2020-04-02 19:19] LABS: CREATININE 2.3 mg/dL (0.55-1.3)
[2020-04-02] MEDS ORDERED: DEXTROSE 5%-WATER 100 ML IVPB ONE (21:26)
[2020-04-02] MEDS ORDERED: MEROPENEM 1 GM VIAL (RESTRICTED TO ID) IVPB ONE (21:26)
[2020-04-02] MEDS: MEROPENEM 1 GM in DEXTROSE 5%-WATER 100 ML IVPB SCH (21:28)
[2020-04-02] MEDS: CHLORHEXIDINE GLUCONATE 4% CLEANSER FOR DECOLONIZATION TP SCH (21:28)
[2020-04-02] MEDS: SENNOSIDES 8.8 MG/5 ML BULK BOTTLE NGT SCH (21:29)
[2020-04-03] MEDS ORDERED: MIDAZOLAM 100 MG/100 ML MG IVPB ONE (04:48)
[2020-04-03 07:07] LABS: BASO % 0.2 % (0-2.0); EOS % 0.1 % (0-4.5); HEMATOCRIT 23.5 % (35.4-49); HEMOGLOBIN 7.6 GM/dL (11.7-16.9); LYMPH % 4.5 % (8-40); MCHC 32.5 g/dl (32.0-35.9); MEAN CELL VOLUME 101.3 fl (80-96); MEAN PLT VOLUME 12.1 fl (7.5-11.1); MONO % 4.4 % (3.8-10.2); NEUT % 90.8 % (42.8-82.8); PLATELET COUNT 161 K/MM3 (134-434); RBC 2.32 M/mm3 (4.00-5.60); RDW 15.5 % (11.9-15.9); WHITE BLOOD COUNT 22.6 K/mm3 (4.0-10.0)
[2020-04-03] MEDS: PHENYLEPHRINE NS PREMIX 50,000 MCG/500 ML BAG CVP SCH (07:23)
[2020-04-03 07:33] LABS: POTASSIUM 4.9 mmol/L (3.5-5.1)
[2020-04-03 07:41] LABS: CALCIUM 8.1 mg/dL (8.5-10.1)
[2020-04-03 07:42] LABS: ALBUMIN 1.9 g/dl (3.4-5.0); BLOOD UREA NITROGEN 69.7 mg/dL (7-18)
[2020-04-03 07:45] LABS: CREATININE 2.6 mg/dL (0.55-1.3); PHOSPHOROUS 7.2 mg/dL (2.5-4.9)
[2020-04-03 07:46] LABS: TOT PROT 5.3 g/dl (6.4-8.2)
[2020-04-03] MEDS ORDERED: DEXTROSE 5%-WATER 100 ML IVPB ONE (09:56)
[2020-04-03] MEDS ORDERED: MEROPENEM 1 GM VIAL (RESTRICTED TO ID) IVPB ONE (09:56)
[2020-04-03] MEDS ORDERED: PT OWN MED DRAWER 7, Y5N ONE (09:57)
[2020-04-03] MEDS: MEROPENEM 1 GM in DEXTROSE 5%-WATER 100 ML IVPB SCH (10:01)
[2020-04-03] MEDS: AMINO ACIDS/PROTEIN HYDROLYS 30 ML LIQUID.PKT PO SCH ×2 (10:01→17:40)
[2020-04-03] MEDS: PANTOPRAZOLE SODIUM 40 MG VIAL IVPUSH SCH (10:05)
[2020-04-03] MEDS: HYDROCHLOROTHIAZIDE 25 MG TABLET (FP) PO SCH ×2 (10:16→21:56)
[2020-04-03] MEDS: DESMOPRESSIN ACETATE 4 MCG/ML AMP IVPB SCH (10:16)
[2020-04-03] MEDS: POLYETHYLENE GLYCOL 3350 119 GM BTL PO SCH (10:17)
[2020-04-03] MEDS: FENTANYL IVPB 500 MCG/100 ML BAG IVPB SCH ×3 (11:45→15:53)
[2020-04-03 12:25] LABS: ANISOCYTOSIS 1+; MACROCYTOSIS 1+; PLATELET ESTIMATE DECREASED
[2020-04-03] MEDS: SULFAMETHOXAZOLE IVPB SCH ×2 (16:31→21:12)
[2020-04-03] MEDS: TRIMETHOPRIM IVPB SCH ×2 (16:31→21:12)
[2020-04-03] MEDS: WATER IVPB SCH ×2 (16:31→21:12)
[2020-04-03] MEDS: DEXTROSE 5% IVPB SCH ×2 (16:31→21:12)
[2020-04-03] MEDS: MIDAZOLAM 100 MG/100 ML MG IVPB SCH (16:32)
[2020-04-03] MEDS ORDERED: ACETAMINOPHEN 1000 MG/100 ML VIAL (NON FORMULARY) IVPB PRN (16:58)
[2020-04-03] MEDS: NOREPINEPHRINE D5W PREMIX 16,000 MCG/500 ML BAG IVPB SCH (17:40)
[2020-04-03] MEDS: SENNOSIDES 8.8 MG/5 ML BULK BOTTLE NGT SCH (21:56)
[2020-04-03] MEDS: CHLORHEXIDINE GLUCONATE 4% CLEANSER FOR DECOLONIZATION TP SCH (21:56)
[2020-04-03] MEDS ORDERED: SULFAMETHOXAZOLE 80 MG/TRIMETHOPRIM 16 MG/ML VIAL IVPB SCH ×2 (22:00)
[2020-04-04] MEDS ORDERED: PT OWN MED DRAWER 7, Y5N ONE ×5 (07:24→21:34)
[2020-04-04] MEDS: FENTANYL IVPB 500 MCG/100 ML BAG IVPB SCH ×2 (07:30→13:56)
[2020-04-04] MEDS: AMINO ACIDS/PROTEIN HYDROLYS 30 ML LIQUID.PKT PO SCH ×2 (07:52→16:29)
[2020-04-04] MEDS: PANTOPRAZOLE SODIUM 40 MG VIAL IVPUSH SCH (09:18)
[2020-04-04] MEDS: HYDROCHLOROTHIAZIDE 25 MG TABLET (FP) PO SCH ×2 (09:18→22:41)
[2020-04-04 10:07] LABS: BASO % 0.2 % (0-2.0); EOS % 0.3 % (0-4.5); HEMATOCRIT 23.9 % (35.4-49); HEMOGLOBIN 7.7 GM/dL (11.7-16.9); LYMPH % 1.8 % (8-40); MCH 32.7 pg (25.7-33.7); MCHC 32.2 g/dl (32.0-35.9); MEAN CELL VOLUME 101.7 fl (80-96); MEAN PLT VOLUME 12.3 fl (7.5-11.1); MONO % 2.7 % (3.8-10.2); PLATELET COUNT 159 K/MM3 (134-434); RBC 2.35 M/mm3 (4.00-5.60); RDW 15.5 % (11.9-15.9); WHITE BLOOD COUNT 12.4 K/mm3 (4.0-10.0)
[2020-04-04 10:42] LABS: POTASSIUM 4.5 mmol/L (3.5-5.1)
[2020-04-04 10:44] LABS: CALCIUM 8.6 mg/dL (8.5-10.1)
[2020-04-04 10:45] LABS: ALBUMIN 1.8 g/dl (3.4-5.0); BLOOD UREA NITROGEN 70.1 mg/dL (7-18); MAGNESIUM 2.2 mg/dL (1.8-2.4)
[2020-04-04 10:48] LABS: CREATININE 2.5 mg/dL (0.55-1.3); PHOSPHOROUS 7.5 mg/dL (2.5-4.9)
[2020-04-04 10:49] LABS: BILIRUBIN,TOTAL 0.6 mg/dL (0.2-1); TOT PROT 5.5 g/dl (6.4-8.2)
[2020-04-04] MEDS: WATER IVPB SCH ×2 (11:36→22:46)
[2020-04-04] MEDS: SULFAMETHOXAZOLE IVPB SCH ×2 (11:36→22:46)
[2020-04-04] MEDS: TRIMETHOPRIM IVPB SCH ×2 (11:36→22:46)
[2020-04-04] MEDS: DEXTROSE 5% IVPB SCH ×2 (11:36→22:46)
[2020-04-04] MEDS: PHENYLEPHRINE NS PREMIX 50,000 MCG/500 ML BAG CVP SCH (11:37)
[2020-04-04 13:53] LABS: ANISOCYTOSIS 0; MACROCYTOSIS 0; PLATELET ESTIMATE DECREASED
[2020-04-04] MEDS: POLYETHYLENE GLYCOL 3350 119 GM BTL PO SCH (13:56)
[2020-04-04] MEDS: SENNOSIDES 8.8 MG/5 ML BULK BOTTLE NGT SCH (22:41)
[2020-04-04] MEDS: CHLORHEXIDINE GLUCONATE 4% CLEANSER FOR DECOLONIZATION TP SCH (22:46)
[2020-04-05] MEDS: FENTANYL IVPB 500 MCG/100 ML BAG IVPB SCH ×3 (01:09→23:11)
[2020-04-05] MEDS: NOREPINEPHRINE D5W PREMIX 16,000 MCG/500 ML BAG IVPB SCH (04:00)
[2020-04-05] MEDS ORDERED: FENTANYL IVPB 500 MCG/100 ML BAG IVPB ONE (04:45)
[2020-04-05] MEDS: PHENYLEPHRINE NS PREMIX 50,000 MCG/500 ML BAG CVP SCH (05:58)
[2020-04-05 06:24] LABS: BASO % 0.4 % (0-2.0); HEMATOCRIT 22.6 % (35.4-49); HEMOGLOBIN 7.5 GM/dL (11.7-16.9); LYMPH % 8.4 % (8-40); MCH 33.1 pg (25.7-33.7); MCHC 33.3 g/dl (32.0-35.9); MEAN CELL VOLUME 99.3 fl (80-96); MEAN PLT VOLUME 11.7 fl (7.5-11.1); MONO % 8.3 % (3.8-10.2); NEUT % 81.9 % (42.8-82.8); PLATELET COUNT 176 K/MM3 (134-434); RBC 2.27 M/mm3 (4.00-5.60); RDW 15.3 % (11.9-15.9); WHITE BLOOD COUNT 7.5 K/mm3 (4.0-10.0)
[2020-04-05 06:34] LABS: ARTERIAL BLD GAS O2 SATURATION 90.3 mmHg (95-98); ARTERIAL BLOOD GAS BASE EXCESS -6.2 mmol/L (-2-2); ARTERIAL BLOOD GAS PO2 63.4 mmHg (80-100); ARTERIAL BLOOD GAS pH 7.307 (7.350-7.450)
[2020-04-05 06:36] LABS: ALLENS TEST POSITIVE
[2020-04-05 06:37] LABS: VENT MODE AC; VENT RATE 18
[2020-04-05 07:11] LABS: POTASSIUM 4.9 mmol/L (3.5-5.1)
[2020-04-05 07:15] LABS: ALBUMIN 1.8 g/dl (3.4-5.0); BLOOD UREA NITROGEN 70.9 mg/dL (7-18); CALCIUM 8.1 mg/dL (8.5-10.1); MAGNESIUM 2.1 mg/dL (1.8-2.4)
[2020-04-05 07:18] LABS: CREATININE 2.8 mg/dL (0.55-1.3); PHOSPHOROUS 7.5 mg/dL (2.5-4.9)
[2020-04-05 07:20] LABS: BILIRUBIN,TOTAL 0.4 mg/dL (0.2-1); TOT PROT 5.3 g/dl (6.4-8.2)
[2020-04-05] MEDS ORDERED: VASOPRESSIN 40 UNITS in SODIUM CHLORIDE 98 ML IVPB SCH (09:45)
[2020-04-05] MEDS: HYDROCHLOROTHIAZIDE 25 MG TABLET (FP) PO SCH (10:01)
[2020-04-05] MEDS: AMINO ACIDS/PROTEIN HYDROLYS 30 ML LIQUID.PKT PO SCH ×2 (10:30→17:45)
[2020-04-05] MEDS: WATER IVPB SCH ×2 (10:30→22:55)
[2020-04-05] MEDS: SULFAMETHOXAZOLE IVPB SCH ×2 (10:30→22:55)
[2020-04-05] MEDS: TRIMETHOPRIM IVPB SCH ×2 (10:30→22:55)
[2020-04-05] MEDS: DEXTROSE 5% IVPB SCH ×2 (10:30→22:55)
[2020-04-05] MEDS: PANTOPRAZOLE SODIUM 40 MG VIAL IVPUSH SCH (10:30)
[2020-04-05] MEDS: POLYETHYLENE GLYCOL 3350 119 GM BTL PO SCH (11:18)
[2020-04-05 14:37] LABS: EPI CELLS 11 /uL (0-25.1); HYALINE CASTS 1 /uL (0-3.1); URINE APPEARANCE CLEAR; URINE BACTERIA 69 /uL (0-1359); URINE BILIRUBIN NEGATIVE (NEGATIVE); URINE COLOR YELLOW; URINE GLUCOSE (UA) NEGATIVE (NEGATIVE); URINE KETONE NEGATIVE (NEGATIVE); URINE LEUK ESTERASE TRACE (NEGATIVE); URINE NITRITE NEGATIVE (NEGATIVE); URINE PROTEIN NEGATIVE (NEGATIVE); URINE RBC 25 /uL (0-23.9); URINE WBC 21 /uL (0-25.8)
[2020-04-05] MEDS: SENNOSIDES 8.8 MG/5 ML BULK BOTTLE NGT SCH (22:54)
[2020-04-05] MEDS: CHLORHEXIDINE GLUCONATE 4% CLEANSER FOR DECOLONIZATION TP SCH (23:10)
[2020-04-06 06:23] LABS: ARTERIAL BLD GAS O2 SATURATION 98.5 mmHg (95-98); ARTERIAL BLOOD GAS BASE EXCESS -6.5 mmol/L (-2-2); ARTERIAL BLOOD GAS PO2 139.7 mmHg (80-100); ARTERIAL BLOOD GAS pH 7.299 (7.350-7.450)
[2020-04-06 06:24] LABS: ALLENS TEST POSITIVE
[2020-04-06 06:25] LABS: VENT MODE A/C; VENT RATE 18
[2020-04-06 06:59] LABS: HEMATOCRIT 21.9 % (35.4-49); HEMOGLOBIN 7.4 GM/dL (11.7-16.9); MCH 33.5 pg (25.7-33.7); MCHC 33.7 g/dl (32.0-35.9); MEAN CELL VOLUME 99.4 fl (80-96); MEAN PLT VOLUME 10.8 fl (7.5-11.1); PLATELET COUNT 218 K/MM3 (134-434)
[2020-04-06 07:14] LABS: POTASSIUM 5.6 mmol/L (3.5-5.1)
[2020-04-06 07:18] LABS: CALCIUM 8.6 mg/dL (8.5-10.1)
[2020-04-06 07:19] LABS: MAGNESIUM 2.3 mg/dL (1.8-2.4)
[2020-04-06 07:22] LABS: CREATININE 3.1 mg/dL (0.55-1.3); PHOSPHOROUS 8.8 mg/dL (2.5-4.9)
[2020-04-06] MEDS ORDERED: DEXTROSE 50%-WATER - 25 GM/50 ML VIAL IVPUSH ONE ×2 (08:45→09:30)
[2020-04-06] MEDS ORDERED: CALCIUM GLUCONATE 10% - 1,000 MG/10 ML VIAL IVPB ONE (08:45)
[2020-04-06] MEDS: AMINO ACIDS/PROTEIN HYDROLYS 30 ML LIQUID.PKT PO SCH ×2 (08:51→22:03)
[2020-04-06] MEDS ORDERED: INSULIN REGULAR HUMAN 100 UNITS/ML *VIAL IVPUSH ONE (09:00)
[2020-04-06] MEDS ORDERED: HYDROCHLOROTHIAZIDE 25 MG TABLET (FP) PO SCH (10:00)
[2020-04-06] MEDS: DEXTROSE 5% IVPB SCH ×2 (10:12→22:02)
[2020-04-06] MEDS: WATER IVPB SCH ×2 (10:12→22:02)
[2020-04-06] MEDS: TRIMETHOPRIM IVPB SCH ×2 (10:12→22:02)
[2020-04-06] MEDS: SULFAMETHOXAZOLE IVPB SCH ×2 (10:12→22:02)
[2020-04-06] MEDS: POLYETHYLENE GLYCOL 3350 119 GM BTL PO SCH (10:13)
[2020-04-06] MEDS: PANTOPRAZOLE SODIUM 40 MG VIAL IVPUSH SCH (10:13)
[2020-04-06] MEDS: FENTANYL IVPB 500 MCG/100 ML BAG IVPB SCH ×2 (14:07→17:09)
[2020-04-06] MEDS ORDERED: SODIUM CHLORIDE 0.45% 1,000 ML IV SCH (18:15)
[2020-04-06] MEDS ORDERED: INDOMETHACIN 50 MG CAPSULE PO ONE (19:30)
[2020-04-06] MEDS: SODIUM ZIRCONIUM CYCLOSILICATE (LOKELMA) 5 GM PACKET PO SCH (22:03)
[2020-04-06] MEDS: SENNOSIDES 8.8 MG/5 ML BULK BOTTLE NGT SCH (22:04)
[2020-04-06] MEDS: HYDROCHLOROTHIAZIDE 25 MG TABLET (FP) PO SCH (22:05)
[2020-04-06] MEDS: CHLORHEXIDINE GLUCONATE 4% CLEANSER FOR DECOLONIZATION TP SCH (22:07)
[2020-04-07] MEDS: FENTANYL IVPB 500 MCG/100 ML BAG IVPB SCH (03:50)
[2020-04-07 06:11] LABS: ARTERIAL BLD GAS O2 SATURATION 94.4 mmHg (95-98); ARTERIAL BLOOD GAS BASE EXCESS -5.1 mmol/L (-2-2); ARTERIAL BLOOD GAS PO2 77.5 mmHg (80-100); ARTERIAL BLOOD GAS pH 7.315 (7.350-7.450)
[2020-04-07 06:13] LABS: ALLENS TEST POSITIVE
[2020-04-07 06:14] LABS: VENT MODE A/C; VENT RATE 18
[2020-04-07] MEDS ORDERED: ROCURONIUM BROMIDE 50 MG/5 ML VIAL IVPUSH ONE (08:45)
[2020-04-07] MEDS: AMINO ACIDS/PROTEIN HYDROLYS 30 ML LIQUID.PKT PO SCH ×2 (08:55→18:49)
[2020-04-07 08:56] LABS: BASO % 0.5 % (0-2.0); EOS % 0.6 % (0-4.5); HEMATOCRIT 21.9 % (35.4-49); HEMOGLOBIN 7.2 GM/dL (11.7-16.9); LYMPH % 12.4 % (8-40); MCH 32.8 pg (25.7-33.7); MCHC 33.1 g/dl (32.0-35.9); MEAN CELL VOLUME 99.2 fl (80-96); MEAN PLT VOLUME 10.3 fl (7.5-11.1); NEUT % 75.5 % (42.8-82.8); PLATELET COUNT 262 K/MM3 (134-434); RBC 2.21 M/mm3 (4.00-5.60); RDW 14.7 % (11.9-15.9); WHITE BLOOD COUNT 8.5 K/mm3 (4.0-10.0)
[2020-04-07] MEDS ORDERED: ROCURONIUM BROMIDE 50 MG/5 ML SYRINGE IVPUSH ONE (09:00)
[2020-04-07 09:21] LABS: POTASSIUM 5.6 mmol/L (3.5-5.1)
[2020-04-07 09:27] LABS: ALBUMIN 1.9 g/dl (3.4-5.0); MAGNESIUM 2.6 mg/dL (1.8-2.4)
[2020-04-07 09:30] LABS: CREATININE 3.2 mg/dL (0.55-1.3); PHOSPHOROUS 7.7 mg/dL (2.5-4.9)
[2020-04-07] MEDS ORDERED: SODIUM BICARBONATE 8.4% 50 MEQ/50 ML VIAL IVPUSH ONE (09:30)
[2020-04-07] MEDS ORDERED: DEXTROSE 50%-WATER - 25 GM/50 ML VIAL IVPUSH ONE (09:30)
[2020-04-07 09:31] LABS: BILIRUBIN,TOTAL 0.3 mg/dL (0.2-1)
[2020-04-07] MEDS ORDERED: INSULIN REGULAR HUMAN 100 UNITS/ML *VIAL IVPUSH ONE (09:45)
[2020-04-07] MEDS: SULFAMETHOXAZOLE IVPB SCH ×2 (09:52→21:54)
[2020-04-07] MEDS: TRIMETHOPRIM IVPB SCH ×2 (09:52→21:54)
[2020-04-07] MEDS: PANTOPRAZOLE SODIUM 40 MG VIAL IVPUSH SCH (09:52)
[2020-04-07] MEDS: WATER IVPB SCH ×2 (09:52→21:54)
[2020-04-07] MEDS: DEXTROSE 5% IVPB SCH ×2 (09:52→21:54)
[2020-04-07] MEDS ORDERED: MIDAZOLAM HCL 2 MG/2 ML SINGLE DOSE VIAL IVPUSH ONE (10:03)
[2020-04-07] MEDS: HYDROCHLOROTHIAZIDE 25 MG TABLET (FP) PO SCH ×2 (10:27→21:53)
[2020-04-07] MEDS: SODIUM ZIRCONIUM CYCLOSILICATE (LOKELMA) 5 GM PACKET PO SCH ×2 (10:27→21:51)
[2020-04-07] MEDS: POLYETHYLENE GLYCOL 3350 119 GM BTL PO SCH (10:27)
[2020-04-07 12:16] VITALS: BMI 21.4
[2020-04-07] MEDS ORDERED: INDOMETHACIN 50 MG CAPSULE PO ONE (17:15)
[2020-04-07] MEDS: NOREPINEPHRINE D5W PREMIX 16,000 MCG/500 ML BAG IVPB SCH (17:30)
[2020-04-07] MEDS ORDERED: FENTANYL IVPB 500 MCG/100 ML BAG IVPB ONE (19:19)
[2020-04-07] MEDS: CHLORHEXIDINE GLUCONATE 4% CLEANSER FOR DECOLONIZATION TP SCH (21:53)
[2020-04-07] MEDS: SENNOSIDES 8.8 MG/5 ML BULK BOTTLE NGT SCH (21:53)
[2020-04-07] MEDS: FENTANYL NS IVPB 500 MCG/100 ML BAG IVPB SCH (21:53)
[2020-04-08] MEDS: FENTANYL NS IVPB 500 MCG/100 ML BAG IVPB SCH ×2 (00:05→23:50)
[2020-04-08] MEDS ORDERED: FENTANYL IVPB 500 MCG/100 ML BAG IVPB ONE (00:15)
[2020-04-08 07:53] LABS: BASO % 0.7 % (0-2.0); EOS % 0.3 % (0-4.5); LYMPH % 13.9 % (8-40); MCH 32.5 pg (25.7-33.7); MCHC 32.7 g/dl (32.0-35.9); MEAN CELL VOLUME 99.3 fl (80-96); MEAN PLT VOLUME 9.8 fl (7.5-11.1); MONO % 10.5 % (3.8-10.2); NEUT % 74.6 % (42.8-82.8); PLATELET COUNT 310 K/MM3 (134-434); RBC 2.02 M/mm3 (4.00-5.60); RDW 15.1 % (11.9-15.9); WHITE BLOOD COUNT 8.5 K/mm3 (4.0-10.0)
[2020-04-08 07:57] LABS: POTASSIUM 5.7 mmol/L (3.5-5.1)
[2020-04-08] MEDS ORDERED: HYDROmorphone HCl 2 MG/ML VIAL IVPUSH ONE (08:26)
[2020-04-08] MEDS ORDERED: HYDROmorphone HCL CARPU-JECT 2 MG/1 ML DISP.SYRIN IVPUSH ONE (08:26)
[2020-04-08] MEDS ORDERED: SODIUM BICARBONATE 8.4% 50 MEQ/50 ML DISP.SYRIN IVPUSH ONE (08:31)
[2020-04-08] MEDS ORDERED: INSULIN REGULAR HUMAN 100 UNITS/ML *VIAL IVPUSH ONE (08:31)
[2020-04-08] MEDS ORDERED: DEXTROSE 50%-WATER - 25 GM/50 ML VIAL IVPUSH ONE (08:31)
[2020-04-08] MEDS: AMINO ACIDS/PROTEIN HYDROLYS 30 ML LIQUID.PKT PO SCH ×2 (08:37→18:03)
[2020-04-08] MEDS ORDERED: HYDROmorphone HCl 2 MG/ML VIAL ONE (08:41)
[2020-04-08 08:45] LABS: BLOOD UREA NITROGEN 75.2 mg/dL (7-18); MAGNESIUM 2.5 mg/dL (1.8-2.4)
[2020-04-08 08:48] LABS: CREATININE 3.5 mg/dL (0.55-1.3); PHOSPHOROUS 8.1 mg/dL (2.5-4.9)
[2020-04-08 08:49] LABS: BILIRUBIN,TOTAL 0.5 mg/dL (0.2-1)
[2020-04-08 08:50] LABS: TOT PROT 5.8 g/dl (6.4-8.2)
[2020-04-08] MEDS: WATER IVPB SCH ×2 (10:22→22:39)
[2020-04-08] MEDS: DEXTROSE 5% IVPB SCH ×2 (10:22→22:39)
[2020-04-08] MEDS: PANTOPRAZOLE SODIUM 40 MG VIAL IVPUSH SCH (10:22)
[2020-04-08] MEDS: POLYETHYLENE GLYCOL 3350 119 GM BTL PO SCH (10:22)
[2020-04-08] MEDS: TRIMETHOPRIM IVPB SCH ×2 (10:22→22:39)
[2020-04-08] MEDS: HYDROCHLOROTHIAZIDE 25 MG TABLET (FP) PO SCH ×2 (10:22→22:39)
[2020-04-08] MEDS: SODIUM ZIRCONIUM CYCLOSILICATE (LOKELMA) 5 GM PACKET PO SCH ×2 (10:22→22:39)
[2020-04-08] MEDS: SULFAMETHOXAZOLE IVPB SCH ×2 (10:22→22:39)
[2020-04-08 11:16] LABS: HEMOGLOBIN 6.6 GM/dL (11.7-16.9)
[2020-04-08] MEDS: HYDROmorphone HCl 2 MG/ML VIAL IVPUSH PRN ×2 (15:31→22:40)
[2020-04-08] MEDS ORDERED: ACETAMINOPHEN 1000 MG/100 ML VIAL (NON FORMULARY) IVPB ONE (17:26)
[2020-04-08] MEDS: SENNOSIDES 8.8 MG/5 ML BULK BOTTLE NGT SCH (22:39)
[2020-04-08] MEDS: CHLORHEXIDINE GLUCONATE 4% CLEANSER FOR DECOLONIZATION TP SCH (22:42)
[2020-04-09] MEDS: HYDROmorphone HCl 2 MG/ML VIAL IVPUSH PRN (04:18)
[2020-04-09] MEDS ORDERED: FENTANYL IVPB 500 MCG/100 ML BAG IVPB ONE ×2 (05:47→17:42)
[2020-04-09] MEDS: FENTANYL NS IVPB 500 MCG/100 ML BAG IVPB SCH ×3 (06:12→20:36)
[2020-04-09 08:53] LABS: BASO % 1.1 % (0-2.0); EOS % 3.4 % (0-4.5); HEMATOCRIT 20.5 % (35.4-49); MCH 32.7 pg (25.7-33.7); MEAN CELL VOLUME 96.4 fl (80-96); MEAN PLT VOLUME 9.4 fl (7.5-11.1); MONO % 12.4 % (3.8-10.2); NEUT % 61.1 % (42.8-82.8); PLATELET COUNT 248 K/MM3 (134-434); RBC 2.12 M/mm3 (4.00-5.60); RDW 16.4 % (11.9-15.9); WHITE BLOOD COUNT 5.6 K/mm3 (4.0-10.0)
[2020-04-09] MEDS: AMINO ACIDS/PROTEIN HYDROLYS 30 ML LIQUID.PKT PO SCH ×2 (08:57→18:02)
[2020-04-09] MEDS: DEXTROSE 5% IVPB SCH (09:13)
[2020-04-09] MEDS: TRIMETHOPRIM IVPB SCH (09:13)
[2020-04-09] MEDS: WATER IVPB SCH (09:13)
[2020-04-09] MEDS: SULFAMETHOXAZOLE IVPB SCH (09:13)
[2020-04-09] MEDS: SODIUM ZIRCONIUM CYCLOSILICATE (LOKELMA) 5 GM PACKET PO SCH (09:14)
[2020-04-09] MEDS: HYDROCHLOROTHIAZIDE 25 MG TABLET (FP) PO SCH ×2 (09:14→21:13)
[2020-04-09] MEDS: PANTOPRAZOLE SODIUM 40 MG VIAL IVPUSH SCH (09:14)
[2020-04-09] MEDS: POLYETHYLENE GLYCOL 3350 119 GM BTL PO SCH (09:14)
[2020-04-09 09:16] LABS: POTASSIUM 4.8 mmol/L (3.5-5.1)
[2020-04-09 09:19] LABS: CALCIUM 8.7 mg/dL (8.5-10.1)
[2020-04-09 09:20] LABS: BLOOD UREA NITROGEN 83.4 mg/dL (7-18); MAGNESIUM 2.5 mg/dL (1.8-2.4)
[2020-04-09 09:23] LABS: CREATININE 3.7 mg/dL (0.55-1.3); PHOSPHOROUS 7.6 mg/dL (2.5-4.9)
[2020-04-09 09:25] LABS: BILIRUBIN,TOTAL 0.4 mg/dL (0.2-1); TOT PROT 5.4 g/dl (6.4-8.2)
[2020-04-09] MEDS: QUEtiapine FUMARATE 25 MG TABLET PO SCH ×2 (18:34→23:21)
[2020-04-09] MEDS: CHLORHEXIDINE GLUCONATE 4% CLEANSER FOR DECOLONIZATION TP SCH (21:13)
[2020-04-09] MEDS: SENNOSIDES 8.8 MG/5 ML BULK BOTTLE NGT SCH (21:13)
[2020-04-09 21:22] LABS: HEMATOCRIT 20.5 % (35.4-49); MCH 32.2 pg (25.7-33.7); MCHC 33.1 g/dl (32.0-35.9); MEAN CELL VOLUME 97.4 fl (80-96); MEAN PLT VOLUME 9.2 fl (7.5-11.1); PLATELET COUNT 258 K/MM3 (134-434); RBC 2.11 M/mm3 (4.00-5.60); RDW 16.4 % (11.9-15.9); WHITE BLOOD COUNT 7.6 K/mm3 (4.0-10.0)
[2020-04-09 21:37] LABS: HEMOGLOBIN 6.8 GM/dL (11.7-16.9)
[2020-04-10 08:58] LABS: HEMATOCRIT 24.1 % (35.4-49); HEMOGLOBIN 8.2 GM/dL (11.7-16.9); MCH 32.1 pg (25.7-33.7); MCHC 33.9 g/dl (32.0-35.9); MEAN CELL VOLUME 94.9 fl (80-96); MEAN PLT VOLUME 9.3 fl (7.5-11.1); PLATELET COUNT 276 K/MM3 (134-434); RBC 2.54 M/mm3 (4.00-5.60); RDW 16.4 % (11.9-15.9); WHITE BLOOD COUNT 5.1 K/mm3 (4.0-10.0)
[2020-04-10 09:21] LABS: POTASSIUM 4.7 mmol/L (3.5-5.1)
[2020-04-10 09:25] LABS: ALBUMIN 2.2 g/dl (3.4-5.0); CALCIUM 8.9 mg/dL (8.5-10.1)
[2020-04-10 09:26] LABS: BLOOD UREA NITROGEN 85.7 mg/dL (7-18); MAGNESIUM 2.6 mg/dL (1.8-2.4)
[2020-04-10 09:29] LABS: CREATININE 3.4 mg/dL (0.55-1.3); PHOSPHOROUS 5.2 mg/dL (2.5-4.9)
[2020-04-10 09:30] LABS: BILIRUBIN,TOTAL 0.4 mg/dL (0.2-1); TOT PROT 5.8 g/dl (6.4-8.2)
[2020-04-10] MEDS: AMINO ACIDS/PROTEIN HYDROLYS 30 ML LIQUID.PKT PO SCH ×2 (09:31→18:48)
[2020-04-10] MEDS: POLYETHYLENE GLYCOL 3350 119 GM BTL PO SCH (09:31)
[2020-04-10] MEDS: HYDROCHLOROTHIAZIDE 25 MG TABLET (FP) PO SCH ×2 (09:31→22:50)
[2020-04-10] MEDS: QUEtiapine FUMARATE 25 MG TABLET PO SCH (09:32)
[2020-04-10] MEDS: PANTOPRAZOLE SODIUM 40 MG VIAL IVPUSH SCH (09:32)
[2020-04-10] MEDS: MIDODRINE HCL 5 MG TABLET NGT SCH ×4 (11:07→19:02)
[2020-04-10] MEDS ORDERED: LORazepam 2 MG/ML SDV VIAL ONE (12:14)
[2020-04-10] MEDS ORDERED: LORazepam 2 MG/ML SDV VIAL IVPUSH ONE (12:19)
[2020-04-10] MEDS: LORazepam 2 MG/ML SDV VIAL IVPUSH PRN (15:34)
[2020-04-10] MEDS ORDERED: DEXTROSE 5%-WATER - 1,000 ML IV SCH (17:00)
[2020-04-10] MEDS: AMINO ACIDS 4.25%/D5W 1,000 ML IV SCH (17:40)
[2020-04-10] MEDS ORDERED: ACETAMINOPHEN 1000 MG/100 ML VIAL (NON FORMULARY) IVPB ONE (22:01)
[2020-04-10] MEDS: HYDROmorphone HCl 2 MG/ML VIAL IVPUSH PRN (22:10)
[2020-04-10] MEDS: CHLORHEXIDINE GLUCONATE 4% CLEANSER FOR DECOLONIZATION TP SCH (22:52)
[2020-04-10] MEDS: SENNOSIDES 8.8 MG/5 ML BULK BOTTLE NGT SCH (22:53)
[2020-04-10] MEDS: QUEtiapine FUMARATE 100 MG TABLET (FP) PO SCH (22:53)
[2020-04-10] MEDS: FENTANYL IVPB 500 MCG/100 ML BAG IVPB SCH ×2 (22:54→22:55)
[2020-04-11] MEDS: LORazepam 2 MG/ML SDV VIAL IVPUSH PRN ×2 (00:53→11:17)
[2020-04-11] MEDS: HYDROmorphone HCl 2 MG/ML VIAL IVPUSH PRN (04:47)
[2020-04-11] MEDS: FENTANYL IVPB 500 MCG/100 ML BAG IVPB SCH ×4 (05:02→19:15)
[2020-04-11] MEDS: AMINO ACIDS 4.25%/D5W 1,000 ML IV SCH ×2 (05:36→18:05)
[2020-04-11] MEDS ORDERED: ACETAMINOPHEN 1000 MG/100 ML VIAL (NON FORMULARY) IVPB ONE (06:40)
[2020-04-11 07:25] LABS: HEMATOCRIT 26.2 % (35.4-49); HEMOGLOBIN 8.8 GM/dL (11.7-16.9); MCH 32.5 pg (25.7-33.7); MCHC 33.5 g/dl (32.0-35.9); MEAN CELL VOLUME 97.1 fl (80-96); MEAN PLT VOLUME 8.9 fl (7.5-11.1); PLATELET COUNT 298 K/MM3 (134-434); RBC 2.69 M/mm3 (4.00-5.60); RDW 16.6 % (11.9-15.9); WHITE BLOOD COUNT 7.5 K/mm3 (4.0-10.0)
[2020-04-11 07:50] LABS: POTASSIUM 4.8 mmol/L (3.5-5.1)
[2020-04-11 08:00] LABS: ALBUMIN 2.5 g/dl (3.4-5.0); CALCIUM 9.3 mg/dL (8.5-10.1)
[2020-04-11 08:01] LABS: BLOOD UREA NITROGEN 86.6 mg/dL (7-18); MAGNESIUM 2.6 mg/dL (1.8-2.4)
[2020-04-11 08:04] LABS: CREATININE 3.4 mg/dL (0.55-1.3); PHOSPHOROUS 4.6 mg/dL (2.5-4.9)
[2020-04-11 08:05] LABS: BILIRUBIN,TOTAL 0.8 mg/dL (0.2-1); TOT PROT 6.3 g/dl (6.4-8.2)
[2020-04-11] MEDS: AMINO ACIDS/PROTEIN HYDROLYS 30 ML LIQUID.PKT PO SCH ×2 (08:57→17:10)
[2020-04-11] MEDS: PANTOPRAZOLE SODIUM 40 MG VIAL IVPUSH SCH (09:05)
[2020-04-11] MEDS: QUEtiapine FUMARATE 100 MG TABLET (FP) PO SCH (10:00)
[2020-04-11] MEDS: HYDROCHLOROTHIAZIDE 25 MG TABLET (FP) PO SCH (10:00)
[2020-04-11] MEDS: POLYETHYLENE GLYCOL 3350 119 GM BTL PO SCH (10:00)
[2020-04-11] MEDS: MIDODRINE HCL 5 MG TABLET NGT SCH ×3 (10:59→17:10)
[2020-04-11] MEDS ORDERED: ACETAMINOPHEN 1000 MG/100 ML VIAL (NON FORMULARY) IVPB PRN (14:39)
[2020-04-11] MEDS: INDOMETHACIN 25 MG CAPSULE PO SCH (16:02)
[2020-04-12 07:59] LABS: HEMATOCRIT 28.8 % (35.4-49); HEMOGLOBIN 9.5 GM/dL (11.7-16.9); MCH 32.3 pg (25.7-33.7); MCHC 33.1 g/dl (32.0-35.9); MEAN CELL VOLUME 97.6 fl (80-96); MEAN PLT VOLUME 8.7 fl (7.5-11.1); PLATELET COUNT 288 K/MM3 (134-434); RBC 2.95 M/mm3 (4.00-5.60); RDW 16.6 % (11.9-15.9); WHITE BLOOD COUNT 14.2 K/mm3 (4.0-10.0)
[2020-04-12 08:27] LABS: POTASSIUM 5.1 mmol/L (3.5-5.1)
[2020-04-12 08:33] LABS: CALCIUM 9.8 mg/dL (8.5-10.1)
[2020-04-12 08:34] LABS: BLOOD UREA NITROGEN 95.3 mg/dL (7-18); MAGNESIUM 2.3 mg/dL (1.8-2.4)
[2020-04-12 08:37] LABS: CREATININE 3.2 mg/dL (0.55-1.3)
[2020-04-12 08:38] LABS: PHOSPHOROUS 3.8 mg/dL (2.5-4.9)
[2020-04-12] MEDS: AMINO ACIDS/PROTEIN HYDROLYS 30 ML LIQUID.PKT PO SCH ×2 (08:48→16:58)
[2020-04-12] MEDS: LORazepam 2 MG/ML SDV VIAL IVPUSH PRN ×2 (09:24→14:08)
[2020-04-12] MEDS: QUEtiapine FUMARATE 100 MG TABLET (FP) PO SCH ×3 (09:57→22:57)
[2020-04-12] MEDS: PANTOPRAZOLE SODIUM 40 MG VIAL IVPUSH SCH (09:57)
[2020-04-12] MEDS: HYDROCHLOROTHIAZIDE 25 MG TABLET (FP) PO SCH ×3 (09:58→22:59)
[2020-04-12] MEDS: INDOMETHACIN 25 MG CAPSULE PO SCH ×3 (09:58→22:59)
[2020-04-12] MEDS: POLYETHYLENE GLYCOL 3350 119 GM BTL PO SCH (09:59)
[2020-04-12] MEDS: MIDODRINE HCL 5 MG TABLET NGT SCH ×3 (10:31→18:49)
[2020-04-12] MEDS: AMINO ACIDS 4.25%/D5W 1,000 ML IV SCH ×2 (11:40→16:50)
[2020-04-12] MEDS ORDERED: VANCOMYCIN 1 GM in D5W (PRE-DOCKED) 1,000 MG/250 ML IVPB ONE (12:00)
[2020-04-12] MEDS ORDERED: AZTREONAM 1 GM in DEXTROSE 5%-WATER - 50 ML IVPB SCH (12:30)
[2020-04-12] MEDS: AZTREONAM 1 GM in DEXTROSE 5%-WATER - 50 ML IVPB SCH ×2 (15:34→22:57)
[2020-04-12] MEDS: HYDROmorphone HCl 2 MG/ML VIAL IVPUSH PRN (17:43)
[2020-04-12] MEDS: CHLORHEXIDINE GLUCONATE 4% CLEANSER FOR DECOLONIZATION TP SCH (22:56)
[2020-04-12] MEDS: SENNOSIDES 8.8 MG/5 ML BULK BOTTLE NGT SCH ×2 (22:56→23:00)
[2020-04-13] MEDS ORDERED: ACETAMINOPHEN 1000 MG/100 ML VIAL (NON FORMULARY) IVPB PRN (00:36)
[2020-04-13] MEDS: NOREPINEPHRINE BITARTRATE 8,000 MCG/500 ML BAG IVPB SCH (01:29)
[2020-04-13] MEDS: AMINO ACIDS 4.25%/D5W 1,000 ML IV SCH (05:20)
[2020-04-13] MEDS: HYDROmorphone HCl 2 MG/ML VIAL IVPUSH PRN ×2 (08:47→18:19)
[2020-04-13] MEDS ORDERED: ALBUTEROL SO4 0.083% IH SOL 2.5 MG/3 ML VIAL.NEB. NEB STA (08:59)
[2020-04-13] MEDS: AMINO ACIDS/PROTEIN HYDROLYS 30 ML LIQUID.PKT PO SCH ×2 (09:00→16:58)
[2020-04-13] MEDS: QUEtiapine FUMARATE 100 MG TABLET (FP) PO SCH ×2 (09:01→22:44)
[2020-04-13] MEDS: HYDROCHLOROTHIAZIDE 25 MG TABLET (FP) PO SCH ×2 (09:01→22:43)
[2020-04-13] MEDS: INDOMETHACIN 25 MG CAPSULE PO SCH ×2 (09:02→22:43)
[2020-04-13] MEDS: POLYETHYLENE GLYCOL 3350 119 GM BTL PO SCH (09:02)
[2020-04-13] MEDS: PANTOPRAZOLE SODIUM 40 MG VIAL IVPUSH SCH (09:02)
[2020-04-13] MEDS: MIDODRINE HCL 5 MG TABLET NGT SCH ×3 (09:52→18:20)
[2020-04-13] MEDS ORDERED: VANCOMYCIN/WATER 1,250 MG/250 ML BAG IVPB STA (10:28)
[2020-04-13 10:40] LABS: BASO % 0.3 % (0-2.0); EOS % 0.9 % (0-4.5); HEMATOCRIT 27.4 % (35.4-49); HEMOGLOBIN 8.7 GM/dL (11.7-16.9); LYMPH % 4.9 % (8-40); MCHC 31.7 g/dl (32.0-35.9); MEAN PLT VOLUME 9.5 fl (7.5-11.1); MONO % 2.6 % (3.8-10.2); NEUT % 91.3 % (42.8-82.8); PLATELET COUNT 292 K/MM3 (134-434); RBC 2.71 M/mm3 (4.00-5.60); RDW 17.4 % (11.9-15.9)
[2020-04-13 11:08] LABS: POTASSIUM 5.6 mmol/L (3.5-5.1)
[2020-04-13 11:13] LABS: CALCIUM 9.2 mg/dL (8.5-10.1)
[2020-04-13 11:14] LABS: ALBUMIN 2.5 g/dl (3.4-5.0); MAGNESIUM 2.3 mg/dL (1.8-2.4)
[2020-04-13 11:17] LABS: CREATININE 2.7 mg/dL (0.55-1.3); PHOSPHOROUS 4.2 mg/dL (2.5-4.9)
[2020-04-13 11:18] LABS: BILIRUBIN,TOTAL 0.2 mg/dL (0.2-1); TOT PROT 6.8 g/dl (6.4-8.2)
[2020-04-13 11:23] LABS: BLOOD UREA NITROGEN 111.9 mg/dL (7-18)
[2020-04-13] MEDS: ALBUTEROL SO4 0.083% IH SOL 2.5 MG/3 ML VIAL.NEB. NEB SCH ×3 (11:50→21:00)
[2020-04-13 11:55] LABS: ANISOCYTOSIS 1+; MACROCYTOSIS 1+; PLATELET ESTIMATE NORMAL
[2020-04-13] MEDS ORDERED: VANCOMYCIN/WATER BAGS 1,250 MG/250 ML BAG IVPB ONE (13:00)
[2020-04-13] MEDS: MEROPENEM 1 GM in DEXTROSE 5%-WATER 100 ML IVPB SCH ×2 (14:19→22:44)
[2020-04-13] MEDS: SODIUM ZIRCONIUM CYCLOSILICATE (LOKELMA) 5 GM PACKET PO SCH (16:57)
[2020-04-13] MEDS ORDERED: SULFAMETHOXAZOLE 80 MG/TRIMETHOPRIM 16 MG/ML VIAL IVPB SCH (18:00)
[2020-04-13] MEDS: CHLORHEXIDINE GLUCONATE 4% CLEANSER FOR DECOLONIZATION TP SCH (22:40)
[2020-04-13] MEDS: SENNOSIDES 8.8 MG/5 ML BULK BOTTLE NGT SCH (22:44)
[2020-04-14] MEDS: ALBUTEROL SO4 0.083% IH SOL 2.5 MG/3 ML VIAL.NEB. NEB SCH ×6 (00:41→20:10)
[2020-04-14] MEDS ORDERED: VANCOMYCIN/WATER 1,250 MG/250 ML BAG IVPB SCH (06:00)
[2020-04-14] MEDS ORDERED: FENTANYL NS IVPB 500 MCG/100 ML BAG IVPB SCH (07:30)
[2020-04-14] MEDS: MEROPENEM 1 GM in DEXTROSE 5%-WATER 100 ML IVPB SCH ×2 (09:34→21:56)
[2020-04-14] MEDS: POLYETHYLENE GLYCOL 3350 119 GM BTL PO SCH (09:34)
[2020-04-14] MEDS: SODIUM ZIRCONIUM CYCLOSILICATE (LOKELMA) 5 GM PACKET PO SCH (09:36)
[2020-04-14] MEDS: AMINO ACIDS/PROTEIN HYDROLYS 30 ML LIQUID.PKT PO SCH (09:37)
[2020-04-14] MEDS: QUEtiapine FUMARATE 100 MG TABLET (FP) PO SCH ×2 (09:38→21:56)
[2020-04-14] MEDS: PANTOPRAZOLE SODIUM 40 MG VIAL IVPUSH SCH (09:38)
[2020-04-14] MEDS: MIDODRINE HCL 5 MG TABLET NGT SCH ×3 (09:38→17:56)
[2020-04-14] MEDS: HYDROCHLOROTHIAZIDE 25 MG TABLET (FP) PO SCH ×2 (09:38→21:56)
[2020-04-14] MEDS: INDOMETHACIN 25 MG CAPSULE PO SCH ×2 (09:38→21:56)
[2020-04-14] MEDS: HYDROmorphone HCl 2 MG/ML VIAL IVPUSH PRN ×2 (10:10→21:56)
[2020-04-14 16:17] LABS: POTASSIUM 4.8 mmol/L (3.5-5.1)
[2020-04-14 16:18] LABS: CALCIUM 9.1 mg/dL (8.5-10.1)
[2020-04-14 16:22] LABS: CREATININE 2.6 mg/dL (0.55-1.3)
[2020-04-14 16:30] LABS: BLOOD UREA NITROGEN 135.4 mg/dL (7-18)
[2020-04-14] MEDS: CHLORHEXIDINE GLUCONATE 4% CLEANSER FOR DECOLONIZATION TP SCH (22:01)
[2020-04-14] MEDS: SENNOSIDES 8.8 MG/5 ML BULK BOTTLE NGT SCH (22:01)
[2020-04-15] MEDS: ALBUTEROL SO4 0.083% IH SOL 2.5 MG/3 ML VIAL.NEB. NEB SCH ×5 (00:27→22:06)
[2020-04-15] MEDS: MEROPENEM 1 GM in DEXTROSE 5%-WATER 100 ML IVPB SCH ×2 (09:18→22:05)
[2020-04-15] MEDS: SODIUM ZIRCONIUM CYCLOSILICATE (LOKELMA) 5 GM PACKET PO SCH (09:18)
[2020-04-15] MEDS: HYDROCHLOROTHIAZIDE 25 MG TABLET (FP) PO SCH ×2 (09:19→10:46)
[2020-04-15] MEDS: PANTOPRAZOLE SODIUM 40 MG VIAL IVPUSH SCH (09:19)
[2020-04-15] MEDS: MIDODRINE HCL 5 MG TABLET NGT SCH ×4 (09:21→18:49)
[2020-04-15] MEDS: POLYETHYLENE GLYCOL 3350 119 GM BTL PO SCH (09:22)
[2020-04-15] MEDS: INDOMETHACIN 25 MG CAPSULE PO SCH ×2 (09:35→22:07)
[2020-04-15] MEDS: QUEtiapine FUMARATE 100 MG TABLET (FP) PO SCH ×2 (09:35→22:07)
[2020-04-15] MEDS: NOREPINEPHRINE BITARTRATE 8,000 MCG/500 ML BAG IVPB SCH ×5 (09:39→16:14)
[2020-04-15 10:42] LABS: HEMATOCRIT 28.7 % (35.4-49); HEMOGLOBIN 9.7 GM/dL (11.7-16.9); LYMPH % 9.2 % (8-40); MCH 32.8 pg (25.7-33.7); MCHC 33.7 g/dl (32.0-35.9); MEAN CELL VOLUME 97.5 fl (80-96); MEAN PLT VOLUME 9.4 fl (7.5-11.1); MONO % 5.2 % (3.8-10.2); NEUT % 68.6 % (42.8-82.8); PLATELET COUNT 327 K/MM3 (134-434); RBC 2.94 M/mm3 (4.00-5.60); RDW 16.6 % (11.9-15.9); WHITE BLOOD COUNT 11.5 K/mm3 (4.0-10.0)
[2020-04-15 10:56] LABS: POTASSIUM 4.7 mmol/L (3.5-5.1)
[2020-04-15 10:58] LABS: CALCIUM 9.7 mg/dL (8.5-10.1)
[2020-04-15 10:59] LABS: MAGNESIUM 2.4 mg/dL (1.8-2.4)
[2020-04-15 11:02] LABS: CREATININE 2.4 mg/dL (0.55-1.3); PHOSPHOROUS 4.4 mg/dL (2.5-4.9)
[2020-04-15 11:14] LABS: BLOOD UREA NITROGEN 126.1 mg/dL (7-18)
[2020-04-15] MEDS: LACTATED RINGERS SOLUTION 1,000 ML/1,000 ML INFUS.BAG IV SCH (11:35)
[2020-04-15] MEDS ORDERED: VANCOMYCIN 1 GRAM (PRE-DOCKED) 1,000 MG/250 ML BAG IVPB ONE (13:00)
[2020-04-15] MEDS: HYDROmorphone HCl 2 MG/ML VIAL IVPUSH PRN ×2 (14:09→22:06)
[2020-04-15] MEDS: CHLORHEXIDINE GLUCONATE 4% CLEANSER FOR DECOLONIZATION TP SCH (22:06)
[2020-04-15] MEDS: SENNOSIDES 8.8 MG/5 ML BULK BOTTLE NGT SCH (22:07)
[2020-04-16] MEDS: ALBUTEROL SO4 0.083% IH SOL 2.5 MG/3 ML VIAL.NEB. NEB SCH ×6 (01:00→20:50)
[2020-04-16] MEDS: HYDROmorphone HCl 2 MG/ML VIAL IVPUSH PRN ×2 (06:27→23:04)
[2020-04-16 07:58] LABS: HEMATOCRIT 27.4 % (35.4-49); HEMOGLOBIN 8.8 GM/dL (11.7-16.9); MCH 31.9 pg (25.7-33.7); MCHC 32.2 g/dl (32.0-35.9); MEAN CELL VOLUME 99.2 fl (80-96); MEAN PLT VOLUME 10.3 fl (7.5-11.1); PLATELET COUNT 340 K/MM3 (134-434); RBC 2.77 M/mm3 (4.00-5.60); RDW 16.4 % (11.9-15.9); WHITE BLOOD COUNT 16.8 K/mm3 (4.0-10.0)
[2020-04-16 08:08] LABS: POTASSIUM 4.6 mmol/L (3.5-5.1)
[2020-04-16 08:16] LABS: CALCIUM 9.1 mg/dL (8.5-10.1); MAGNESIUM 2.3 mg/dL (1.8-2.4)
[2020-04-16 08:20] LABS: CREATININE 2.1 mg/dL (0.55-1.3); PHOSPHOROUS 4.8 mg/dL (2.5-4.9)
[2020-04-16 08:21] LABS: BLOOD UREA NITROGEN 99.2 mg/dL (7-18)
[2020-04-16] MEDS: DOPAMINE 400 MG/D5W - 400,000 MCG/250 ML INFUS.BAG IVPB SCH (09:25)
[2020-04-16] MEDS: LACTATED RINGERS SOLUTION 1,000 ML/1,000 ML INFUS.BAG IV SCH ×2 (09:26→16:41)
[2020-04-16] MEDS: NOREPINEPHRINE BITARTRATE 8,000 MCG/500 ML BAG IVPB SCH ×2 (09:27→09:28)
[2020-04-16] MEDS: PANTOPRAZOLE SODIUM 40 MG VIAL IVPUSH SCH (10:39)
[2020-04-16] MEDS: POLYETHYLENE GLYCOL 3350 119 GM BTL PO SCH (10:39)
[2020-04-16] MEDS: MIDODRINE HCL 5 MG TABLET NGT SCH ×3 (10:39→22:57)
[2020-04-16] MEDS: SODIUM ZIRCONIUM CYCLOSILICATE (LOKELMA) 5 GM PACKET PO SCH (10:39)
[2020-04-16] MEDS: INDOMETHACIN 25 MG CAPSULE PO SCH ×2 (10:39→22:57)
[2020-04-16] MEDS: MEROPENEM 1 GM in DEXTROSE 5%-WATER 100 ML IVPB SCH ×2 (10:39→22:58)
[2020-04-16] MEDS: CHLORHEXIDINE GLUCONATE 4% CLEANSER FOR DECOLONIZATION TP SCH (22:57)
[2020-04-16] MEDS: SENNOSIDES 8.8 MG/5 ML BULK BOTTLE NGT SCH (22:58)
[2020-04-17] MEDS: ALBUTEROL SO4 0.083% IH SOL 2.5 MG/3 ML VIAL.NEB. NEB SCH ×5 (00:25→20:53)
[2020-04-17 07:04] LABS: ARTERIAL BLD GAS O2 SATURATION 99.1 mmHg (95-98); ARTERIAL BLOOD GAS BASE EXCESS -8.4 mmol/L (-2-2); ARTERIAL BLOOD GAS PO2 221.5 mmHg (80-100)
[2020-04-17 07:15] LABS: ALLENS TEST POSITIVE
[2020-04-17 07:16] LABS: VENT MODE P-AC; VENT RATE 20
[2020-04-17 07:18] LABS: ARTERIAL BLOOD GAS pH 7.084 (7.350-7.450)
[2020-04-17] MEDS: HYDROmorphone HCl 2 MG/ML VIAL IVPUSH PRN ×4 (08:29→22:44)
[2020-04-17] MEDS: INDOMETHACIN 25 MG CAPSULE PO SCH ×2 (10:03→22:25)
[2020-04-17] MEDS: PANTOPRAZOLE SODIUM 40 MG VIAL IVPUSH SCH (10:03)
[2020-04-17] MEDS: SODIUM ZIRCONIUM CYCLOSILICATE (LOKELMA) 5 GM PACKET PO SCH (10:03)
[2020-04-17] MEDS: MEROPENEM 1 GM in DEXTROSE 5%-WATER 100 ML IVPB SCH ×2 (10:03→22:23)
[2020-04-17] MEDS: DOPAMINE 400 MG/D5W - 400,000 MCG/250 ML INFUS.BAG IVPB SCH (10:03)
[2020-04-17] MEDS: POLYETHYLENE GLYCOL 3350 119 GM BTL PO SCH (10:03)
[2020-04-17] MEDS: MIDODRINE HCL 5 MG TABLET NGT SCH ×3 (10:03→17:18)
[2020-04-17] MEDS: LACTATED RINGERS SOLUTION 1,000 ML/1,000 ML INFUS.BAG IV SCH (10:58)
[2020-04-17 12:20] LABS: HEMATOCRIT 30.7 % (35.4-49); MCH 31.6 pg (25.7-33.7); MCHC 32.5 g/dl (32.0-35.9); MEAN CELL VOLUME 97.1 fl (80-96); MEAN PLT VOLUME 10.1 fl (7.5-11.1); PLATELET COUNT 269 K/MM3 (134-434); RBC 3.16 M/mm3 (4.00-5.60); RDW 16.1 % (11.9-15.9); WHITE BLOOD COUNT 11.4 K/mm3 (4.0-10.0)
[2020-04-17 12:39] LABS: POTASSIUM 4.9 mmol/L (3.5-5.1)
[2020-04-17 12:42] LABS: BLOOD UREA NITROGEN 81.3 mg/dL (7-18); CALCIUM 9.9 mg/dL (8.5-10.1); MAGNESIUM 2.4 mg/dL (1.8-2.4)
[2020-04-17 12:46] LABS: CREATININE 1.7 mg/dL (0.55-1.3); PHOSPHOROUS 4.4 mg/dL (2.5-4.9)
[2020-04-17] MEDS: HYDROCHLOROTHIAZIDE 25 MG TABLET (FP) NGT SCH (12:54)
[2020-04-17] MEDS: CHLORHEXIDINE GLUCONATE 4% CLEANSER FOR DECOLONIZATION TP SCH (22:25)
[2020-04-17] MEDS: SENNOSIDES 8.8 MG/5 ML BULK BOTTLE NGT SCH (22:26)
[2020-04-18] MEDS: ALBUTEROL SO4 0.083% IH SOL 2.5 MG/3 ML VIAL.NEB. NEB SCH ×5 (00:47→20:20)
[2020-04-18 07:27] LABS: HEMATOCRIT 25.1 % (35.4-49); HEMOGLOBIN 8.5 GM/dL (11.7-16.9); MCH 32.3 pg (25.7-33.7); MCHC 33.8 g/dl (32.0-35.9); MEAN CELL VOLUME 95.5 fl (80-96); MEAN PLT VOLUME 9.9 fl (7.5-11.1); PLATELET COUNT 242 K/MM3 (134-434); RBC 2.63 M/mm3 (4.00-5.60); RDW 15.8 % (11.9-15.9); WHITE BLOOD COUNT 7.7 K/mm3 (4.0-10.0)
[2020-04-18 07:52] LABS: POTASSIUM 4.2 mmol/L (3.5-5.1)
[2020-04-18 07:54] LABS: CALCIUM 9.5 mg/dL (8.5-10.1)
[2020-04-18 07:55] LABS: BLOOD UREA NITROGEN 66.3 mg/dL (7-18); MAGNESIUM 2.1 mg/dL (1.8-2.4)
[2020-04-18 07:58] LABS: CREATININE 1.4 mg/dL (0.55-1.3); PHOSPHOROUS 2.8 mg/dL (2.5-4.9)
[2020-04-18] MEDS: DOPAMINE 400 MG/D5W - 400,000 MCG/250 ML INFUS.BAG IVPB SCH (10:08)
[2020-04-18] MEDS ORDERED: HYDROmorphone HCl 2 MG/ML VIAL IVPUSH PRN (10:14)
[2020-04-18] MEDS: HYDROCHLOROTHIAZIDE 25 MG TABLET (FP) NGT SCH (10:42)
[2020-04-18] MEDS: SODIUM ZIRCONIUM CYCLOSILICATE (LOKELMA) 5 GM PACKET PO SCH (10:42)
[2020-04-18] MEDS: MIDODRINE HCL 5 MG TABLET NGT SCH ×3 (10:43→20:10)
[2020-04-18] MEDS: LACTATED RINGERS SOLUTION 1,000 ML/1,000 ML INFUS.BAG IV SCH (10:43)
[2020-04-18] MEDS: PANTOPRAZOLE SODIUM 40 MG VIAL IVPUSH SCH (10:43)
[2020-04-18] MEDS: MEROPENEM 1 GM in DEXTROSE 5%-WATER 100 ML IVPB SCH ×2 (10:45→21:08)
[2020-04-18] MEDS: INDOMETHACIN 25 MG CAPSULE PO SCH ×2 (10:45→21:08)
[2020-04-18] MEDS: POLYETHYLENE GLYCOL 3350 119 GM BTL PO SCH (10:47)
[2020-04-18] MEDS: SENNOSIDES 8.8 MG/5 ML BULK BOTTLE NGT SCH (21:08)
[2020-04-18] MEDS: CHLORHEXIDINE GLUCONATE 4% CLEANSER FOR DECOLONIZATION TP SCH (22:00)
[2020-04-19] MEDS: ALBUTEROL SO4 0.083% IH SOL 2.5 MG/3 ML VIAL.NEB. NEB SCH ×7 (01:05→22:26)
[2020-04-19 07:49] LABS: BASO % 0.6 % (0-2.0); EOS % 10.2 % (0-4.5); HEMATOCRIT 25.4 % (35.4-49); HEMOGLOBIN 8.6 GM/dL (11.7-16.9); LYMPH % 16.3 % (8-40); MCH 32.2 pg (25.7-33.7); MCHC 33.7 g/dl (32.0-35.9); MEAN CELL VOLUME 95.6 fl (80-96); MEAN PLT VOLUME 10.3 fl (7.5-11.1); MONO % 7.4 % (3.8-10.2); NEUT % 65.5 % (42.8-82.8); PLATELET COUNT 244 K/MM3 (134-434); RBC 2.66 M/mm3 (4.00-5.60); RDW 15.5 % (11.9-15.9); WHITE BLOOD COUNT 9.7 K/mm3 (4.0-10.0)
[2020-04-19 08:04] LABS: POTASSIUM 5.2 mmol/L (3.5-5.1)
[2020-04-19 08:07] LABS: CALCIUM 8.9 mg/dL (8.5-10.1)
[2020-04-19 08:11] LABS: CREATININE 1.5 mg/dL (0.55-1.3); PHOSPHOROUS 3.1 mg/dL (2.5-4.9)
[2020-04-19] MEDS: POLYETHYLENE GLYCOL 3350 119 GM BTL PO SCH (09:00)
[2020-04-19] MEDS: MEROPENEM 1 GM in DEXTROSE 5%-WATER 100 ML IVPB SCH ×2 (09:01→22:30)
[2020-04-19] MEDS: SODIUM ZIRCONIUM CYCLOSILICATE (LOKELMA) 5 GM PACKET PO SCH (09:02)
[2020-04-19] MEDS: PANTOPRAZOLE SODIUM 40 MG VIAL IVPUSH SCH (09:03)
[2020-04-19] MEDS: INDOMETHACIN 25 MG CAPSULE PO SCH (09:04)
[2020-04-19] MEDS: MIDODRINE HCL 5 MG TABLET NGT SCH ×3 (09:11→18:37)
[2020-04-19] MEDS: HYDROCHLOROTHIAZIDE 25 MG TABLET (FP) NGT SCH (11:22)
[2020-04-19] MEDS: HYDROmorphone HCl 2 MG/ML VIAL IVPUSH PRN ×2 (14:55→22:31)
[2020-04-19] MEDS: CHLORHEXIDINE GLUCONATE 4% CLEANSER FOR DECOLONIZATION TP SCH (22:29)
[2020-04-19] MEDS: DOPAMINE 400 MG/D5W - 400,000 MCG/250 ML INFUS.BAG IVPB SCH (22:33)
[2020-04-20] MEDS: ALBUTEROL SO4 0.083% IH SOL 2.5 MG/3 ML VIAL.NEB. NEB SCH ×7 (00:06→20:53)
[2020-04-20] MEDS: SENNOSIDES 8.8 MG/5 ML BULK BOTTLE NGT SCH ×2 (01:00→21:32)
[2020-04-20] MEDS: INDOMETHACIN 25 MG CAPSULE PO SCH ×3 (01:00→21:31)
[2020-04-20] MEDS: HYDROmorphone HCl 2 MG/ML VIAL IVPUSH PRN ×2 (05:38→15:20)
[2020-04-20] MEDS: DOPAMINE 400 MG/D5W - 400,000 MCG/250 ML INFUS.BAG IVPB SCH (07:38)
[2020-04-20 08:26] LABS: HEMATOCRIT 24.3 % (35.4-49); MCH 31.8 pg (25.7-33.7); MEAN CELL VOLUME 96.5 fl (80-96); MEAN PLT VOLUME 10.5 fl (7.5-11.1); PLATELET COUNT 251 K/MM3 (134-434); RBC 2.52 M/mm3 (4.00-5.60); RDW 16.1 % (11.9-15.9); WHITE BLOOD COUNT 7.6 K/mm3 (4.0-10.0)
[2020-04-20 08:55] LABS: BLOOD UREA NITROGEN 50.9 mg/dL (7-18); CREATININE 1.5 mg/dL (0.55-1.3); MAGNESIUM 2.2 mg/dL (1.8-2.4); PHOSPHOROUS 4.2 mg/dL (2.5-4.9); POTASSIUM 4.7 mmol/L (3.5-5.1)
[2020-04-20] MEDS ORDERED: LACTATED RINGERS SOLUTION 1,000 ML/1,000 ML INFUS.BAG IV STA (09:17)
[2020-04-20] MEDS: HYDROCHLOROTHIAZIDE 25 MG TABLET (FP) NGT SCH (10:55)
[2020-04-20] MEDS: MEROPENEM 1 GM in DEXTROSE 5%-WATER 100 ML IVPB SCH ×2 (10:56→21:31)
[2020-04-20] MEDS: SODIUM ZIRCONIUM CYCLOSILICATE (LOKELMA) 5 GM PACKET PO SCH (10:56)
[2020-04-20] MEDS: PANTOPRAZOLE SODIUM 40 MG VIAL IVPUSH SCH (10:57)
[2020-04-20] MEDS: MIDODRINE HCL 5 MG TABLET NGT SCH ×3 (10:57→17:53)
[2020-04-20] MEDS: POLYETHYLENE GLYCOL 3350 119 GM BTL PO SCH (10:58)
[2020-04-20] MEDS: VANCOMYCIN 1,000 MG in DEXTROSE 5%-WATER - 250 ML IVPB SCH (12:23)
[2020-04-20] MEDS: LORazepam 2 MG/ML SDV VIAL IVPUSH PRN (16:11)
[2020-04-20] MEDS: CHLORHEXIDINE GLUCONATE 4% CLEANSER FOR DECOLONIZATION TP SCH (21:30)
[2020-04-21] MEDS: ALBUTEROL SO4 0.083% IH SOL 2.5 MG/3 ML VIAL.NEB. NEB SCH ×6 (00:22→21:04)
[2020-04-21 06:59] LABS: HEMATOCRIT 24.7 % (35.4-49); HEMOGLOBIN 8.3 GM/dL (11.7-16.9); MCH 32.1 pg (25.7-33.7); MCHC 33.5 g/dl (32.0-35.9); MEAN CELL VOLUME 95.7 fl (80-96); MEAN PLT VOLUME 9.7 fl (7.5-11.1); PLATELET COUNT 263 K/MM3 (134-434); RBC 2.58 M/mm3 (4.00-5.60); RDW 16.2 % (11.9-15.9); WHITE BLOOD COUNT 7.4 K/mm3 (4.0-10.0)
[2020-04-21 07:13] LABS: POTASSIUM 4.4 mmol/L (3.5-5.1)
[2020-04-21 07:15] LABS: BLOOD UREA NITROGEN 47.1 mg/dL (7-18); MAGNESIUM 2.1 mg/dL (1.8-2.4)
[2020-04-21 07:18] LABS: CREATININE 1.4 mg/dL (0.55-1.3); PHOSPHOROUS 3.7 mg/dL (2.5-4.9)
[2020-04-21] MEDS: HYDROCHLOROTHIAZIDE 25 MG TABLET (FP) NGT SCH (09:54)
[2020-04-21] MEDS: POLYETHYLENE GLYCOL 3350 119 GM BTL PO SCH (09:54)
[2020-04-21] MEDS: MIDODRINE HCL 5 MG TABLET NGT SCH ×3 (09:54→18:30)
[2020-04-21] MEDS: INDOMETHACIN 25 MG CAPSULE PO SCH (09:54)
[2020-04-21] MEDS: SODIUM ZIRCONIUM CYCLOSILICATE (LOKELMA) 5 GM PACKET PO SCH (09:54)
[2020-04-21] MEDS: MEROPENEM 1 GM in DEXTROSE 5%-WATER 100 ML IVPB SCH ×2 (09:54→23:14)
[2020-04-21] MEDS: PANTOPRAZOLE SODIUM 40 MG VIAL IVPUSH SCH (09:55)
[2020-04-21] MEDS: LORazepam 2 MG/ML SDV VIAL IVPUSH PRN (12:52)
[2020-04-21] MEDS: DOPAMINE 400 MG/D5W - 400,000 MCG/250 ML INFUS.BAG IVPB SCH (23:10)
[2020-04-21] MEDS: CHLORHEXIDINE GLUCONATE 4% CLEANSER FOR DECOLONIZATION TP SCH (23:11)
[2020-04-21] MEDS: SENNOSIDES 8.8 MG/5 ML BULK BOTTLE NGT SCH (23:11)
[2020-04-22] MEDS: ALBUTEROL SO4 0.083% IH SOL 2.5 MG/3 ML VIAL.NEB. NEB SCH ×6 (00:34→20:30)
[2020-04-22] MEDS: DOPAMINE 400 MG/D5W - 400,000 MCG/250 ML INFUS.BAG IVPB SCH ×2 (08:02→09:15)
[2020-04-22] MEDS: LORazepam 2 MG/ML SDV VIAL IVPUSH PRN (09:09)
[2020-04-22] MEDS: SODIUM ZIRCONIUM CYCLOSILICATE (LOKELMA) 5 GM PACKET PO SCH (09:10)
[2020-04-22] MEDS: MEROPENEM 1 GM in DEXTROSE 5%-WATER 100 ML IVPB SCH ×2 (09:10→21:57)
[2020-04-22] MEDS: POLYETHYLENE GLYCOL 3350 119 GM BTL PO SCH (09:14)
[2020-04-22] MEDS: MIDODRINE HCL 5 MG TABLET NGT SCH ×3 (09:14→17:13)
[2020-04-22] MEDS: HYDROCHLOROTHIAZIDE 25 MG TABLET (FP) NGT SCH (09:15)
[2020-04-22] MEDS: PANTOPRAZOLE SODIUM 40 MG VIAL IVPUSH SCH (09:16)
[2020-04-22] MEDS ORDERED: INDOMETHACIN 25 MG CAPSULE PO SCH (10:00)
[2020-04-22] MEDS: VANCOMYCIN 1,000 MG in DEXTROSE 5%-WATER - 250 ML IVPB SCH (11:13)
[2020-04-22 11:40] LABS: BASO % 0.6 % (0-2.0); EOS % 8.2 % (0-4.5); HEMATOCRIT 26.6 % (35.4-49); HEMOGLOBIN 8.8 GM/dL (11.7-16.9); LYMPH % 17.5 % (8-40); MCH 32.2 pg (25.7-33.7); MCHC 33.2 g/dl (32.0-35.9); MEAN CELL VOLUME 97.1 fl (80-96); MEAN PLT VOLUME 9.7 fl (7.5-11.1); MONO % 9.8 % (3.8-10.2); NEUT % 63.9 % (42.8-82.8); PLATELET COUNT 276 K/MM3 (134-434); RBC 2.74 M/mm3 (4.00-5.60); RDW 16.6 % (11.9-15.9); WHITE BLOOD COUNT 7.6 K/mm3 (4.0-10.0)
[2020-04-22 12:07] LABS: POTASSIUM 4.3 mmol/L (3.5-5.1)
[2020-04-22 12:09] LABS: CALCIUM 9.2 mg/dL (8.5-10.1)
[2020-04-22 12:10] LABS: ALBUMIN 2.8 g/dl (3.4-5.0); BLOOD UREA NITROGEN 44.5 mg/dL (7-18); MAGNESIUM 2.6 mg/dL (1.8-2.4)
[2020-04-22 12:12] LABS: CREATININE 1.4 mg/dL (0.55-1.3)
[2020-04-22 12:13] LABS: PHOSPHOROUS 3.3 mg/dL (2.5-4.9)
[2020-04-22 12:14] LABS: BILIRUBIN,TOTAL 0.4 mg/dL (0.2-1); TOT PROT 6.9 g/dl (6.4-8.2)
[2020-04-22] MEDS ORDERED: HYDROmorphone HCl 2 MG/ML VIAL IVPUSH PRN ×2 (19:25)
[2020-04-22] MEDS ORDERED: ACETAMINOPHEN 1000 MG/100 ML VIAL (NON FORMULARY) IVPB PRN (19:25)
[2020-04-22] MEDS: SENNOSIDES 8.8 MG/5 ML BULK BOTTLE NGT SCH (21:58)
[2020-04-22] MEDS: CHLORHEXIDINE GLUCONATE 4% CLEANSER FOR DECOLONIZATION TP SCH (21:58)
[2020-04-23] MEDS: ALBUTEROL SO4 0.083% IH SOL 2.5 MG/3 ML VIAL.NEB. NEB SCH ×6 (00:01→20:30)
[2020-04-23] MEDS ORDERED: AMINO ACIDS/PROTEIN HYDROLYS 30 ML LIQUID.PKT PO SCH (08:00)
[2020-04-23] MEDS ORDERED: LORazepam 2 MG/ML SDV VIAL ONE (08:59)
[2020-04-23] MEDS ORDERED: LORazepam 2 MG/ML SDV VIAL IVPUSH SCH (09:00)
[2020-04-23] MEDS ORDERED: VANCOMYCIN 1 GRAM (PRE-DOCKED) 1,000 MG/250 ML BAG IVPB ONE (09:15)
[2020-04-23] MEDS: LORazepam 2 MG/ML SDV VIAL IVPUSH PRN (09:30)
[2020-04-23 09:31] LABS: BASO % 0.9 % (0-2.0); EOS % 10.6 % (0-4.5); HEMATOCRIT 26.5 % (35.4-49); HEMOGLOBIN 8.7 GM/dL (11.7-16.9); LYMPH % 17.9 % (8-40); MCHC 32.9 g/dl (32.0-35.9); MEAN CELL VOLUME 97.4 fl (80-96); MEAN PLT VOLUME 9.3 fl (7.5-11.1); MONO % 10.7 % (3.8-10.2); NEUT % 59.9 % (42.8-82.8); PLATELET COUNT 298 K/MM3 (134-434); RBC 2.72 M/mm3 (4.00-5.60); RDW 16.7 % (11.9-15.9); WHITE BLOOD COUNT 9.7 K/mm3 (4.0-10.0)
[2020-04-23] MEDS: SODIUM ZIRCONIUM CYCLOSILICATE (LOKELMA) 5 GM PACKET PO SCH ×2 (09:44→10:00)
[2020-04-23] MEDS: PANTOPRAZOLE SODIUM 40 MG VIAL IVPUSH SCH (09:44)
[2020-04-23] MEDS: HYDROCHLOROTHIAZIDE 25 MG TABLET (FP) NGT SCH (09:44)
[2020-04-23] MEDS: MEROPENEM 1 GM in DEXTROSE 5%-WATER 100 ML IVPB SCH ×2 (09:45→22:08)
[2020-04-23 09:52] LABS: POTASSIUM 4.3 mmol/L (3.5-5.1)
[2020-04-23 09:54] LABS: BLOOD UREA NITROGEN 45.7 mg/dL (7-18); CALCIUM 9.1 mg/dL (8.5-10.1); MAGNESIUM 2.5 mg/dL (1.8-2.4)
[2020-04-23 09:58] LABS: CREATININE 1.6 mg/dL (0.55-1.3); PHOSPHOROUS 3.2 mg/dL (2.5-4.9)
[2020-04-23 09:59] LABS: BILIRUBIN,TOTAL 0.6 mg/dL (0.2-1); TOT PROT 7.3 g/dl (6.4-8.2)
[2020-04-23] MEDS: POLYETHYLENE GLYCOL 3350 119 GM BTL PO SCH (10:00)
[2020-04-23] MEDS: SENNOSIDES 8.8 MG/5 ML BULK BOTTLE NGT SCH (21:46)
[2020-04-23] MEDS: CHLORHEXIDINE GLUCONATE 4% CLEANSER FOR DECOLONIZATION TP SCH (23:15)
[2020-04-24] MEDS: ALBUTEROL SO4 0.083% IH SOL 2.5 MG/3 ML VIAL.NEB. NEB SCH ×6 (00:03→21:20)
[2020-04-24] MEDS: MEROPENEM 1 GM in DEXTROSE 5%-WATER 100 ML IVPB SCH ×2 (10:20→23:55)
[2020-04-24] MEDS: LORazepam 2 MG/ML SDV VIAL IVPUSH PRN (10:21)
[2020-04-24] MEDS: PANTOPRAZOLE SODIUM 40 MG VIAL IVPUSH SCH (10:21)
[2020-04-24] MEDS: HYDROCHLOROTHIAZIDE 25 MG TABLET (FP) NGT SCH (10:34)
[2020-04-24] MEDS: POLYETHYLENE GLYCOL 3350 119 GM BTL PO SCH (10:34)
[2020-04-24] MEDS: SODIUM ZIRCONIUM CYCLOSILICATE (LOKELMA) 5 GM PACKET PO SCH (10:34)
[2020-04-24] MEDS: CHLORHEXIDINE GLUCONATE 4% CLEANSER FOR DECOLONIZATION TP SCH (23:55)
[2020-04-24] MEDS: SENNOSIDES 8.8 MG/5 ML BULK BOTTLE NGT SCH (23:56)
[2020-04-24] MEDS: MIRTAZAPINE 15 MG TABLET (FP) PO SCH (23:56)
[2020-04-25] MEDS: MIRTAZAPINE 15 MG TABLET (FP) PO SCH ×2 (00:08→21:07)
[2020-04-25] MEDS: LORazepam 2 MG/ML SDV VIAL IVPUSH PRN ×2 (00:11→19:40)
[2020-04-25] MEDS: ALBUTEROL SO4 0.083% IH SOL 2.5 MG/3 ML VIAL.NEB. NEB SCH ×4 (08:31→20:40)
[2020-04-25] MEDS: POLYETHYLENE GLYCOL 3350 119 GM BTL PO SCH (10:49)
[2020-04-25] MEDS: MEROPENEM 1 GM in DEXTROSE 5%-WATER 100 ML IVPB SCH ×2 (10:58→21:06)
[2020-04-25] MEDS: PANTOPRAZOLE SODIUM 40 MG VIAL IVPUSH SCH (10:59)
[2020-04-25] MEDS: HYDROCHLOROTHIAZIDE 25 MG TABLET (FP) NGT SCH (11:13)
[2020-04-25] MEDS: SENNOSIDES 8.8 MG/5 ML BULK BOTTLE NGT SCH (21:07)
[2020-04-25] MEDS ORDERED: CHLORHEXIDINE GLUCONATE 4% CLEANSER FOR DECOLONIZATION TP SCH (22:00)
[2020-04-26] MEDS: ALBUTEROL SO4 0.083% IH SOL 2.5 MG/3 ML VIAL.NEB. NEB SCH ×6 (00:45→20:30)
[2020-04-26] MEDS ORDERED: HYDROCHLOROTHIAZIDE 25 MG TABLET (FP) NGT SCH (10:00)
[2020-04-26] MEDS: MEROPENEM 1 GM in DEXTROSE 5%-WATER 100 ML IVPB SCH ×2 (11:29→22:03)
[2020-04-26] MEDS: POLYETHYLENE GLYCOL 3350 119 GM BTL PO SCH (11:29)
[2020-04-26] MEDS: PANTOPRAZOLE SODIUM 40 MG VIAL IVPUSH SCH (11:29)
[2020-04-26] MEDS: ACETAMINOPHEN 1000 MG/100 ML VIAL (NON FORMULARY) IVPB PRN ×2 (11:30→20:39)
[2020-04-26] MEDS: MIRTAZAPINE 15 MG TABLET (FP) PO SCH (22:01)
[2020-04-26] MEDS: SENNOSIDES 8.8 MG/5 ML BULK BOTTLE NGT SCH (22:02)
[2020-04-27] MEDS: ALBUTEROL SO4 0.083% IH SOL 2.5 MG/3 ML VIAL.NEB. NEB SCH ×6 (01:05→20:30)
[2020-04-27] MEDS: POLYETHYLENE GLYCOL 3350 119 GM BTL PO SCH (10:49)
[2020-04-27] MEDS: MEROPENEM 1 GM in DEXTROSE 5%-WATER 100 ML IVPB SCH (10:49)
[2020-04-27] MEDS: PANTOPRAZOLE SODIUM 40 MG VIAL IVPUSH SCH (10:51)
[2020-04-27] MEDS: LORazepam 2 MG/ML SDV VIAL IVPUSH PRN (17:32)
[2020-04-27] MEDS: DOXYCYCLINE HYCLATE 100 MG CAPSULE PO SCH (17:38)
[2020-04-27] MEDS ORDERED: OLANZapine 5 MG TABLET PO SCH (22:00)
[2020-04-27] MEDS: SENNOSIDES 8.8 MG/5 ML BULK BOTTLE NGT SCH ×2 (22:24→22:34)
[2020-04-27] MEDS: MIRTAZAPINE 15 MG TABLET (FP) PO SCH ×2 (22:27→22:34)
[2020-04-28] MEDS: ALBUTEROL SO4 0.083% IH SOL 2.5 MG/3 ML VIAL.NEB. NEB SCH ×6 (00:05→20:35)
[2020-04-28] MEDS: PANTOPRAZOLE SODIUM 40 MG VIAL IVPUSH SCH (11:03)
[2020-04-28] MEDS: DOXYCYCLINE HYCLATE 100 MG CAPSULE PO SCH ×2 (11:03→18:20)
[2020-04-28] MEDS: POLYETHYLENE GLYCOL 3350 119 GM BTL PO SCH (11:23)
[2020-04-28] MEDS: ACETAMINOPHEN 1000 MG/100 ML VIAL (NON FORMULARY) IVPB PRN (12:26)
[2020-04-28 13:14] LABS: EOS % 6.7 % (0-4.5); HEMATOCRIT 28.9 % (35.4-49); HEMOGLOBIN 9.5 GM/dL (11.7-16.9); LYMPH % 24.5 % (8-40); MCH 32.1 pg (25.7-33.7); MCHC 32.8 g/dl (32.0-35.9); MEAN CELL VOLUME 97.7 fl (80-96); MEAN PLT VOLUME 9.8 fl (7.5-11.1); MONO % 10.1 % (3.8-10.2); NEUT % 57.7 % (42.8-82.8); PLATELET COUNT 317 K/MM3 (134-434); RBC 2.95 M/mm3 (4.00-5.60); RDW 17.1 % (11.9-15.9); WHITE BLOOD COUNT 5.1 K/mm3 (4.0-10.0)
[2020-04-28 13:43] LABS: CHLORIDE 105 mmol/L (98-107); POTASSIUM 3.7 mmol/L (3.5-5.1); SODIUM 141 mmol/L (136-145)
[2020-04-28 13:45] LABS: CALCIUM 9.3 mg/dL (8.5-10.1)
[2020-04-28 13:46] LABS: ANION GAP 10 MMOL/L (8-16); BLOOD UREA NITROGEN 52.6 mg/dL (7-18); CO2 26 mmol/L (21-32); GLUCOSE,RANDOM 147 mg/dL (74-106); MAGNESIUM 2.7 mg/dL (1.8-2.4)
[2020-04-28 13:49] LABS: PHOSPHOROUS 3.3 mg/dL (2.5-4.9); SGOT/AST 18 U/L (15-37); SGPT/ALT 29 U/L (13-61)
[2020-04-28 13:50] LABS: BILIRUBIN,TOTAL 0.4 mg/dL (0.2-1)
[2020-04-28 13:51] LABS: TOT PROT 7.5 g/dl (6.4-8.2)
[2020-04-28 13:52] LABS: ALK PHOS 178 U/L (45-117)
[2020-04-28] MEDS ORDERED: ACETAMINOPHEN 500 MG TABLET (FP) PO PRN (16:21)
[2020-04-28] MEDS: LORazepam 2 MG/ML SDV VIAL IVPUSH PRN (16:50)
[2020-04-28] MEDS ORDERED: ATORVASTATIN CA 80 MG TABLET (FP) PO ONE (17:57)
[2020-04-28] MEDS ORDERED: AMINO ACIDS 4.25%/D5W 1,000 ML IV SCH (18:00)
[2020-04-28] MEDS ORDERED: LORazepam 2 MG/ML SDV VIAL IVPUSH PRN (19:36)
[2020-04-28] MEDS ORDERED: PT OWN MED DRAWER 7, Y5N ONE (20:59)
[2020-04-28] MEDS: MIRTAZAPINE 15 MG TABLET (FP) PO SCH (21:33)
[2020-04-28] MEDS: SENNOSIDES 8.8 MG/5 ML BULK BOTTLE NGT SCH (21:34)
[2020-04-28] MEDS: OLANZapine 5 MG TABLET PO SCH (21:34)
[2020-04-28] MEDS ORDERED: ACETAMINOPHEN 1000 MG/100 ML VIAL (NON FORMULARY) IVPB ONE (21:36)
[2020-04-29] MEDS: ALBUTEROL SO4 0.083% IH SOL 2.5 MG/3 ML VIAL.NEB. NEB SCH ×5 (04:00→15:20)
[2020-04-29] MEDS ORDERED: ACETAMINOPHEN 1000 MG/100 ML VIAL (NON FORMULARY) IVPB ONE (09:30)
[2020-04-29] MEDS ORDERED: PT OWN MED DRAWER 7, Y5N ONE ×3 (11:10→23:32)
[2020-04-29] MEDS: DOXYCYCLINE HYCLATE 100 MG CAPSULE PO SCH ×2 (12:42→18:37)
[2020-04-29] MEDS: PANTOPRAZOLE SODIUM 40 MG VIAL IVPUSH SCH (12:50)
[2020-04-29] MEDS: POLYETHYLENE GLYCOL 3350 119 GM BTL PO SCH (12:50)
[2020-04-29] MEDS: MIRTAZAPINE 15 MG TABLET (FP) PO SCH ×2 (23:25→23:27)
[2020-04-29] MEDS: OLANZapine 5 MG TABLET PO SCH ×2 (23:26→23:28)
[2020-04-29] MEDS: SENNOSIDES 8.8 MG/5 ML BULK BOTTLE NGT SCH (23:28)
[2020-04-30] MEDS: ALBUTEROL SO4 0.083% IH SOL 2.5 MG/3 ML VIAL.NEB. NEB SCH ×4 (08:14→20:11)
[2020-04-30] MEDS: DOXYCYCLINE HYCLATE 100 MG CAPSULE PO SCH ×2 (09:37→17:24)
[2020-04-30] MEDS: PANTOPRAZOLE SODIUM 40 MG VIAL IVPUSH SCH (09:37)
[2020-04-30] MEDS ORDERED: SODIUM CHLORIDE 0.9% 500 ML INFUS.BAG IV ONE (14:01)
[2020-04-30] MEDS: POLYETHYLENE GLYCOL 3350 119 GM BTL PO SCH (14:05)
[2020-04-30] MEDS: TAMSULOSIN HCL 0.4 MG CAP PO SCH (20:02)
[2020-04-30] MEDS: OLANZapine 5 MG TABLET PO SCH (22:22)
[2020-04-30] MEDS: MIRTAZAPINE 15 MG TABLET (FP) PO SCH (22:22)
[2020-04-30] MEDS: SENNOSIDES 8.8 MG/5 ML BULK BOTTLE NGT SCH (22:22)
[2020-05-01] MEDS ORDERED: PT OWN MED DRAWER 7, Y5N ONE ×2 (00:18→21:21)
[2020-05-01] MEDS: OLANZapine 5 MG TABLET PO SCH ×2 (00:19→21:26)
[2020-05-01] MEDS: ALBUTEROL SO4 0.083% IH SOL 2.5 MG/3 ML VIAL.NEB. NEB SCH ×6 (00:32→20:41)
[2020-05-01] MEDS ORDERED: MELATONIN 5 MG TABLETS PO ONE (00:48)
[2020-05-01 03:06] LABS: PH,URINE 7.5 (5.0-8.0); URINE APPEARANCE CLOUDY; URINE BILIRUBIN NEGATIVE (NEGATIVE); URINE COLOR YELLOW; URINE GLUCOSE (UA) NEGATIVE (NEGATIVE); URINE KETONE NEGATIVE (NEGATIVE); URINE LEUK ESTERASE NEGATIVE (NEGATIVE); URINE NITRITE NEGATIVE (NEGATIVE); URINE PROTEIN NEGATIVE (NEGATIVE); URINE UROBILINOGEN 0.2 mg/dL (0.2-1.0)
[2020-05-01] MEDS: PANTOPRAZOLE SODIUM 40 MG VIAL IVPUSH SCH (09:23)
[2020-05-01] MEDS: POLYETHYLENE GLYCOL 3350 119 GM BTL PO SCH (09:24)
[2020-05-01] MEDS: DOXYCYCLINE HYCLATE 100 MG CAPSULE PO SCH ×2 (09:24→17:38)
[2020-05-01] MEDS: TAMSULOSIN HCL 0.4 MG CAP PO SCH ×2 (09:24→21:25)
[2020-05-01 13:09] LABS: BASO % 0.6 % (0-2.0); EOS % 4.5 % (0-4.5); HEMOGLOBIN 9.5 GM/dL (11.7-16.9); LYMPH % 22.8 % (8-40); MCH 32.8 pg (25.7-33.7); MCHC 33.8 g/dl (32.0-35.9); MEAN CELL VOLUME 97.2 fl (80-96); MEAN PLT VOLUME 9.1 fl (7.5-11.1); MONO % 8.6 % (3.8-10.2); NEUT % 63.5 % (42.8-82.8); PLATELET COUNT 257 K/MM3 (134-434); RBC 2.89 M/mm3 (4.00-5.60); RDW 17.5 % (11.9-15.9); WHITE BLOOD COUNT 7.9 K/mm3 (4.0-10.0)
[2020-05-01 13:28] LABS: POTASSIUM 4.8 mmol/L (3.5-5.1)
[2020-05-01 13:30] LABS: CALCIUM 9.4 mg/dL (8.5-10.1)
[2020-05-01 13:31] LABS: ALBUMIN 2.8 g/dl (3.4-5.0); BLOOD UREA NITROGEN 68.8 mg/dL (7-18)
[2020-05-01 13:34] LABS: CREATININE 1.8 mg/dL (0.55-1.3)
[2020-05-01 13:35] LABS: BILIRUBIN,TOTAL 0.6 mg/dL (0.2-1); TOT PROT 6.7 g/dl (6.4-8.2)
[2020-05-01 17:01] LABS: CALCIUM 9.2 mg/dL (8.5-10.1)
[2020-05-01 17:03] LABS: BLOOD UREA NITROGEN 70.1 mg/dL (7-18)
[2020-05-01 17:05] LABS: CREATININE 1.9 mg/dL (0.55-1.3)
[2020-05-01] MEDS: NAPH,MB-DB/K PH,MBDB POWDER PACKET PO SCH (17:37)
[2020-05-01 17:42] LABS: POTASSIUM 4.8 mmol/L (3.5-5.1)
[2020-05-01] MEDS: MIRTAZAPINE 15 MG TABLET (FP) PO SCH (21:31)
[2020-05-01] MEDS: SENNOSIDES 8.8 MG/5 ML BULK BOTTLE NGT SCH (21:31)
[2020-05-01] MEDS ORDERED: MELATONIN 5 MG TABLETS PO PRN (22:00)
[2020-05-02 02:48] LABS: PH,URINE 7.5 (5.0-8.0); URINE APPEARANCE CLEAR; URINE BILIRUBIN NEGATIVE (NEGATIVE); URINE COLOR YELLOW; URINE GLUCOSE (UA) NEGATIVE (NEGATIVE); URINE KETONE NEGATIVE (NEGATIVE); URINE LEUK ESTERASE NEGATIVE (NEGATIVE); URINE NITRITE NEGATIVE (NEGATIVE); URINE PROTEIN NEGATIVE (NEGATIVE); URINE UROBILINOGEN 0.2 mg/dL (0.2-1.0)
[2020-05-02 07:33] LABS: BASO % 0.4 % (0-2.0); HEMATOCRIT 25.6 % (35.4-49); HEMOGLOBIN 8.6 GM/dL (11.7-16.9); LYMPH % 36.1 % (8-40); MCH 32.9 pg (25.7-33.7); MCHC 33.8 g/dl (32.0-35.9); MEAN CELL VOLUME 97.2 fl (80-96); MEAN PLT VOLUME 9.7 fl (7.5-11.1); NEUT % 45.5 % (42.8-82.8); PLATELET COUNT 234 K/MM3 (134-434); RBC 2.63 M/mm3 (4.00-5.60); RDW 16.9 % (11.9-15.9)
[2020-05-02] MEDS ORDERED: PT OWN MED DRAWER 7, Y5N ONE ×2 (07:53→20:57)
[2020-05-02] MEDS: NAPH,MB-DB/K PH,MBDB POWDER PACKET PO SCH ×3 (07:58→18:04)
[2020-05-02] MEDS: TAMSULOSIN HCL 0.4 MG CAP PO SCH ×2 (07:58→21:10)
[2020-05-02 08:08] LABS: POTASSIUM 4.7 mmol/L (3.5-5.1)
[2020-05-02] MEDS: ALBUTEROL SO4 0.083% IH SOL 2.5 MG/3 ML VIAL.NEB. NEB SCH ×3 (08:51→20:25)
[2020-05-02 08:59] LABS: CALCIUM 9.4 mg/dL (8.5-10.1)
[2020-05-02 09:00] LABS: ALBUMIN 2.8 g/dl (3.4-5.0); BLOOD UREA NITROGEN 71.4 mg/dL (7-18); MAGNESIUM 2.1 mg/dL (1.8-2.4)
[2020-05-02 09:03] LABS: CREATININE 1.8 mg/dL (0.55-1.3)
[2020-05-02 09:04] LABS: BILIRUBIN,TOTAL 0.3 mg/dL (0.2-1)
[2020-05-02 09:05] LABS: TOT PROT 6.5 g/dl (6.4-8.2)
[2020-05-02] MEDS: PANTOPRAZOLE SODIUM 40 MG VIAL IVPUSH SCH (09:24)
[2020-05-02] MEDS: DOXYCYCLINE HYCLATE 100 MG CAPSULE PO SCH ×2 (09:24→18:04)
[2020-05-02] MEDS: POLYETHYLENE GLYCOL 3350 119 GM BTL PO SCH (09:32)
[2020-05-02] MEDS ORDERED: ACETAMINOPHEN 1000 MG/100 ML VIAL (NON FORMULARY) IVPB ONE (13:41)
[2020-05-02] MEDS ORDERED: MELATONIN 5 MG TABLETS PO PRN (13:41)
[2020-05-02] MEDS ORDERED: ACETAMINOPHEN 500 MG TABLET (FP) PO PRN (13:41)
[2020-05-02] MEDS ORDERED: MIRTAZAPINE 15 MG TABLET (FP) PO SCH (22:00)
[2020-05-02] MEDS ORDERED: SENNOSIDES 8.8 MG/5 ML BULK BOTTLE NGT SCH (22:00)
[2020-05-02] MEDS ORDERED: OLANZapine 5 MG TABLET PO SCH (22:00)
[2020-05-03] MEDS: ALBUTEROL SO4 0.083% IH SOL 2.5 MG/3 ML VIAL.NEB. NEB SCH ×5 (00:11→15:04)
[2020-05-03] MEDS ORDERED: POLYETHYLENE GLYCOL 3350 119 GM BTL PO SCH (10:00)
[2020-05-03] MEDS: TAMSULOSIN HCL 0.4 MG CAP PO SCH (10:04)
[2020-05-03] MEDS: NAPH,MB-DB/K PH,MBDB POWDER PACKET PO SCH ×3 (10:04→18:09)
[2020-05-03] MEDS: DOXYCYCLINE HYCLATE 100 MG CAPSULE PO SCH ×2 (10:05→18:09)
[2020-05-03] MEDS: PANTOPRAZOLE SODIUM 40 MG VIAL IVPUSH SCH ×2 (10:05→10:21)
[2020-05-03] MEDS ORDERED: LIDOCAINE 5% TOPICAL PATCH TP ONE (16:19)
[2020-05-03] MEDS ORDERED: LIDOCAINE PATCH REMOVAL MC SCH (22:00)
[2020-05-03 22:17] VITALS: BP 94/47; PULSE 97; TEMP 98.2
== END 2020-05-03 18:49 | DRG 4 ==
LOC: JER 09:52 → JERBED 14:36 → JICU 20:54 → JICU-6 04-04 21:07 → J5WEST-2 04-25 18:51 → J4W 04-28 17:50 → J5S 05-02 13:32
PROVIDERS: ADMIT Internal Medicine Pulmonary Disease; ATTEND Internal Medicine
PROC: 4A133B1 Monitoring of Arterial Pressure, Peripheral, Percutaneous Approach (ICD-10-PCS; 2020-03-22)
PROC: 4A133J1 Monitoring of Arterial Pulse, Peripheral, Percutaneous Approach (ICD-10-PCS; 2020-03-22)
PROC: 30233R1 Transfusion of Nonautologous Platelets into Peripheral Vein, Percutaneous Approach (ICD-10-PCS; 2020-03-26)
PROC: 30233R1 Transfusion of Nonautologous Platelets into Peripheral Vein, Percutaneous Approach (ICD-10-PCS; 2020-03-28)
PROC: 0B113F4 Bypass Trachea to Cutaneous with Tracheostomy Device, Percutaneous Approach (ICD-10-PCS; principal; 2020-04-07)
PROC: 5A1955Z Respiratory Ventilation, Greater than 96 Consecutive Hours (ICD-10-PCS; 2020-04-07)
PROC: 0B918ZZ Drainage of Trachea, Via Natural or Artificial Opening Endoscopic (ICD-10-PCS; 2020-04-07)
PROC: 30233N1 Transfusion of Nonautologous Red Blood Cells into Peripheral Vein, Percutaneous Approach (ICD-10-PCS; 2020-04-08)
PROC: 30233N1 Transfusion of Nonautologous Red Blood Cells into Peripheral Vein, Percutaneous Approach (ICD-10-PCS; 2020-04-09)
DX: T42.6X2A Poisoning by other antiepileptic and sedative-hypnotic drugs, intentional self-harm, initial encounter (principal); J96.01 Acute respiratory failure with hypoxia; R57.8 Other shock; J18.9 Pneumonia, unspecified organism; N17.9 Acute kidney failure, unspecified; E87.2 Acidosis; D61.818 Other pancytopenia; T39.1X2A Poisoning by 4-Aminophenol derivatives, intentional self-harm, initial encounter; N18.9 Chronic kidney disease, unspecified; J44.9 Chronic obstructive pulmonary disease, unspecified; T68.XXXA Hypothermia, initial encounter; A49.02 Methicillin resistant Staphylococcus aureus infection, unspecified site; I95.9 Hypotension, unspecified; E87.6 Hypokalemia; D69.6 Thrombocytopenia, unspecified; R33.9 Retention of urine, unspecified; D64.9 Anemia, unspecified
CPT/HCPCS: 36415; 36430; 36600; 70450-TC; 71045-TC-FY; 71250-TC; 72125-TC; 74176-TC; 76775-TC; 80048; 80053; 80061; 80076; 80164; 80307; 81003; 82140; 82272; 82436; 82550; 82728; 82803; 82962; 83036; 83605; 83615; 83690; 83721; 83735; 83880; 83935; 84100; 84133; 84300; 84439; 84443; 84484; 85025; 85027; 85379; 85610; 85730; 86022; 86140; 86850; 86900; 86901; 86922; 87040; 87070; 87081; 87086; 87186; 87205; 87804; 93005; 93010; 93306-TC; 94002; 94640; 97116-GP; 97161-GP; 99291; 99292; C9803; G0480; J0131; J1644; J1955; J2597; P9034; P9058; U0003

== ENCOUNTER 2020-05-24 17:01 | Emergency (ER) | payer OTHER ==
[2020-05-24 17:21] VITALS: BP 109/67; PULSE 113; BMI 17.8
[2020-05-24] MEDS ORDERED: ACETAMINOPHEN 325 MG TABLET (FP) PO ONE (18:08)
[2020-05-24] MEDS ORDERED: ACETAMINOPHEN 325 MG TABLET (FP) ONE (18:09)
== END 2020-05-24 18:31 | disposition home or self-care (01) ==
LOC: JERFT 17:01
DX: H11.32 Conjunctival hemorrhage, left eye (principal)
CPT/HCPCS: 99283-25

== ENCOUNTER 2020-05-26 22:45 | Emergency (ER) | payer OTHER ==
[2020-05-26 23:00] VITALS: BP 110/66; PULSE 104; TEMP 98; BMI 18.8
[2020-05-27] MEDS ORDERED: LACTATED RINGERS SOLUTION 1000 ML INFUS.BAG IV ONE (00:03)
[2020-05-27 01:03] LABS: BASO % 0.4 % (0-2.0); EOS % 1.9 % (0-4.5); HEMATOCRIT 28.7 % (35.4-49); HEMOGLOBIN 9.4 GM/dL (11.7-16.9); LYMPH % 21.7 % (8-40); MCH 33.6 pg (25.7-33.7); MCHC 32.7 g/dl (32.0-35.9); MEAN CELL VOLUME 102.6 fl (80-96); MEAN PLT VOLUME 8.2 fl (7.5-11.1); MONO % 9.8 % (3.8-10.2); NEUT % 66.2 % (42.8-82.8); PLATELET COUNT 289 K/MM3 (134-434); RDW 17.8 % (11.9-15.9)
[2020-05-27 01:12] LABS: INR 1.05 (0.83-1.09); PROTHROMBIN TIME (PATIENT) 12.7 SEC (9.7-13.0)
[2020-05-27 01:14] LABS: ACTIVATED PTT 32.3 SECONDS (25.2-36.5)
[2020-05-27 01:16] LABS: POTASSIUM 3.6 mmol/L (3.5-5.1)
[2020-05-27 01:18] LABS: ALBUMIN 3.3 g/dl (3.4-5.0); CALCIUM 9.4 mg/dL (8.5-10.1); MAGNESIUM 2.4 mg/dL (1.8-2.4)
[2020-05-27 01:22] LABS: PHOSPHOROUS 3.5 mg/dL (2.5-4.9)
[2020-05-27 01:23] LABS: BILIRUBIN,TOTAL 0.4 mg/dL (0.2-1); TOT PROT 6.7 g/dl (6.4-8.2)
[2020-05-27] MEDS ORDERED: VANCOMYCIN 250 MG/5 ML ORAL SOLUTION PO ONE (04:22)
[2020-05-27] MEDS ORDERED: ACETAMINOPHEN 500 MG TABLET (FP) PO ONE (04:48)
== END 2020-05-27 05:07 ==
LOC: JER 22:45
DX: R10.84 Generalized abdominal pain (principal); R19.7 Diarrhea, unspecified
CPT/HCPCS: 36415; 74176-TC; 80053; 83605; 83735; 84100; 85025; 85610; 85730; 99284-25

== ENCOUNTER 2020-05-29 17:41 | Emergency (ER) | payer OTHER ==
[2020-05-29 17:57] VITALS: BP 120/71; PULSE 99; TEMP 97.8; BMI 18.4
[2020-05-29] MEDS ORDERED: SODIUM CHLORIDE 1,000 ML IV STA (18:26)
== END 2020-05-29 20:21 | disposition left against medical advice (07) ==
LOC: JER 17:41
PROC: 3E0337Z Introduction of Electrolytic and Water Balance Substance into Peripheral Vein, Percutaneous Approach (ICD-10-PCS; principal; 2020-05-29)
DX: R19.7 Diarrhea, unspecified (principal)
CPT/HCPCS: 96360; 99284-25

== ENCOUNTER 2020-05-30 13:35 | Emergency (ER) | payer OTHER ==
[2020-05-30 13:44] VITALS: BP 102/63; PULSE 101; TEMP 98.6; BMI 22.7
== END 2020-05-30 17:15 | disposition left against medical advice (07) ==
LOC: JER 13:35
DX: R19.7 Diarrhea, unspecified (principal); R19.5 Other fecal abnormalities
CPT/HCPCS: 99281-25

== ENCOUNTER 2020-06-01 00:17 | Emergency (ER) | payer OTHER ==
[2020-06-01 00:57] VITALS: BP 115/69; PULSE 98; TEMP 98.2; BMI 23.3
== END 2020-06-01 02:12 | disposition home or self-care (01) ==
LOC: JER 00:17
DX: Z91.19 Patient's noncompliance with other medical treatment and regimen (principal); R19.7 Diarrhea, unspecified
CPT/HCPCS: 99283-25

== ENCOUNTER 2020-06-11 09:14 | Emergency (ER) | payer OTHER ==
[2020-06-11 09:18] VITALS: BP 110/68; PULSE 92; TEMP 97; BMI 21.1
[2020-06-11] MEDS ORDERED: KETOROLAC TROMETHAMINE 30 MG/1 ML VIAL IM ONE (10:21)
[2020-06-11] MEDS ORDERED: ACETAMINOPHEN 500 MG TABLET (FP) PO ONE (10:39)
[2020-06-11] MEDS ORDERED: ACETAMINOPHEN 500 MG TABLET (FP) ONE (10:47)
== END 2020-06-11 11:02 | disposition home or self-care (01) ==
LOC: JER 09:14 → JERFT 09:14
PROC: 3E0233Z Introduction of Anti-inflammatory into Muscle, Percutaneous Approach (ICD-10-PCS; principal; 2020-06-11)
DX: M25.561 Pain in right knee (principal); G89.29 Other chronic pain
CPT/HCPCS: 73562-TC-RT-FY; 99284-25

== ENCOUNTER 2020-06-12 10:56 | Emergency (ER) | payer OTHER ==
[2020-06-12 11:23] VITALS: BP 117/61; PULSE 95; TEMP 97.8; BMI 17.2
[2020-06-12] MEDS ORDERED: ACETAMINOPHEN 500 MG TABLET (FP) PO ONE (11:59)
[2020-06-12] MEDS ORDERED: ACETAMINOPHEN 325 MG TABLET (FP) ONE (12:00)
[2020-06-12] MEDS ORDERED: ACETAMINOPHEN 500 MG TABLET (FP) ONE (12:00)
== END 2020-06-12 12:14 | disposition home or self-care (01) ==
LOC: JER 10:56
DX: M25.561 Pain in right knee (principal)
CPT/HCPCS: 99283-25

== ENCOUNTER 2020-06-14 13:25 | Emergency (ER) | payer OTHER ==
[2020-06-14 13:30] VITALS: BP 120/73; PULSE 86; TEMP 97.8
[2020-06-14] MEDS ORDERED: ACETAMINOPHEN 500 MG TABLET (FP) PO ONE (15:35)
== END 2020-06-14 15:30 | disposition home or self-care (01) ==
LOC: JER 13:25
DX: R19.7 Diarrhea, unspecified (principal); Z11.52 Encounter for screening for COVID-19
CPT/HCPCS: 99283-25; C9803; U0003; U0005

== ENCOUNTER 2020-07-14 17:09 | Emergency (ER) | payer OTHER ==
[2020-07-14 17:24] VITALS: BP 104/68; PULSE 105; TEMP 98.2; BMI 20.3
== END 2020-07-14 18:41 | disposition home or self-care (01) ==
LOC: JER 17:09
DX: M54.5 Low back pain (principal)
CPT/HCPCS: 99283-25

== ENCOUNTER 2020-08-05 19:50 | Emergency (ER) | payer OTHER ==
[2020-08-05 19:59] VITALS: TEMP 98.9; BMI 21.2
[2020-08-05] MEDS ORDERED: ACETAMINOPHEN 500 MG TABLET (FP) PO ONE (20:44)
[2020-08-05] MEDS ORDERED: ACETAMINOPHEN 325 MG TABLET (FP) ONE (20:54)
[2020-08-05 21:20] VITALS: BP 140/86; PULSE 96
== END 2020-08-05 22:28 | disposition home or self-care (01) ==
LOC: JER 19:50 → JERFT 19:50
DX: S00.03XA Contusion of scalp, initial encounter (principal)
CPT/HCPCS: 99284-25

== ENCOUNTER 2020-08-10 01:05 | Emergency (ER) | payer OTHER ==
[2020-08-10 01:28] VITALS: BP 116/70; PULSE 96; TEMP 98.3; BMI 19.0
[2020-08-10] MEDS ORDERED: ACETAMINOPHEN 325 MG TABLET (FP) PO ONE (03:03)
[2020-08-10] MEDS ORDERED: ACETAMINOPHEN 325 MG TABLET (FP) ONE (04:01)
== END 2020-08-10 04:06 | disposition home or self-care (01) ==
LOC: JER 01:05
DX: M25.561 Pain in right knee (principal)
CPT/HCPCS: 99283-25

== ENCOUNTER 2020-08-15 20:17 | Emergency (ER) | payer OTHER ==
[2020-08-15 20:35] VITALS: BP 116/54; PULSE 106; TEMP 98.5; BMI 21.9
[2020-08-15] MEDS ORDERED: ACETAMINOPHEN 325 MG TABLET (FP) PO ONE (21:36)
[2020-08-15] MEDS ORDERED: ACETAMINOPHEN 325 MG TABLET (FP) ONE (21:42)
== END 2020-08-15 22:10 | disposition home or self-care (01) ==
LOC: JER 20:17
DX: M25.561 Pain in right knee (principal)
CPT/HCPCS: 99283-25

== ENCOUNTER 2020-08-16 00:18 | Emergency (ER) | payer OTHER ==
[2020-08-16 00:51] VITALS: BP 116/54; PULSE 94; TEMP 98.6; BMI 25.0
== END 2020-08-16 02:00 | disposition home or self-care (01) ==
LOC: JERFT 00:18
DX: Z76.5 Malingerer [conscious simulation] (principal)
CPT/HCPCS: 99281-25

== ENCOUNTER 2020-09-09 12:12 | Emergency (ER) | payer OTHER ==
[2020-09-09 12:32] VITALS: BP 122/75; PULSE 89; TEMP 98.1; BMI 21.6
[2020-09-09] MEDS ORDERED: ACETAMINOPHEN 1000 MG/100 ML VIAL (NON FORMULARY) IVPB ONE (14:07)
== END 2020-09-09 14:48 | disposition home or self-care (01) ==
LOC: JER 12:12
PROC: 3E033NZ Introduction of Analgesics, Hypnotics, Sedatives into Peripheral Vein, Percutaneous Approach (ICD-10-PCS; principal; 2020-09-09)
DX: R05 Cough (principal); R10.9 Unspecified abdominal pain
CPT/HCPCS: 93005; 93010; 99285-25

== ENCOUNTER 2020-09-10 21:09 | Emergency (ER) | payer OTHER ==
[2020-09-10 21:36] VITALS: BP 126/62; PULSE 106; TEMP 98.1; BMI 24.3
[2020-09-10] MEDS ORDERED: ACETAMINOPHEN 1000 MG/100 ML VIAL (NON FORMULARY) IVPB ONE (21:51)
[2020-09-10] MEDS ORDERED: SODIUM CHLORIDE 0.9% 500 ML INFUS.BAG IV ONE (21:51)
== END 2020-09-11 00:08 | disposition left against medical advice (07) ==
LOC: JER 21:09
DX: K92.1 Melena (principal); R10.13 Epigastric pain
CPT/HCPCS: 36415; 82272; 99285-25

== ENCOUNTER 2020-09-18 16:30 | Emergency (ER) | payer OTHER ==
[2020-09-18 16:36] VITALS: BP 128/65; PULSE 101; TEMP 98.1; BMI 20.9
[2020-09-18] MEDS ORDERED: LIDOCAINE 5% TOPICAL PATCH TP ONE (17:02)
[2020-09-18] MEDS ORDERED: LIDOCAINE PATCH REMOVAL MC SCH (22:00)
== END 2020-09-18 17:39 | disposition home or self-care (01) ==
LOC: JERFT 16:30
DX: M25.512 Pain in left shoulder (principal)
CPT/HCPCS: 99283-25

== ENCOUNTER 2020-09-22 05:39 | Emergency (ER) | payer OTHER ==
[2020-09-22 06:39] VITALS: BP 128/69; PULSE 85; TEMP 98.2; BMI 21.1
[2020-09-22] MEDS ORDERED: ACETAMINOPHEN 500 MG TABLET (FP) PO ONE (07:36)
[2020-09-22] MEDS ORDERED: ACETAMINOPHEN 325 MG TABLET (FP) ONE (07:54)
== END 2020-09-22 09:00 | disposition left against medical advice (07) ==
LOC: JER 05:39
DX: R51.9 Headache, unspecified (principal)
CPT/HCPCS: 99283-25

== ENCOUNTER 2020-10-03 16:26 | Emergency (ER) | payer OTHER ==
[2020-10-03 16:54] VITALS: BP 109/64; PULSE 97; TEMP 98; BMI 27.4
== END 2020-10-03 18:00 | disposition left against medical advice (07) ==
LOC: JERFT 16:26
DX: R10.9 Unspecified abdominal pain (principal)
CPT/HCPCS: 99281-25

== ENCOUNTER 2020-11-08 11:34 | Emergency (ER) | payer OTHER ==
[2020-11-08 11:44] VITALS: BP 113/63; PULSE 95; TEMP 97; BMI 19.3
== END 2020-11-08 14:30 | disposition home or self-care (01) ==
LOC: JER 11:34
DX: J44.9 Chronic obstructive pulmonary disease, unspecified (principal)
CPT/HCPCS: 93005; 93010; 99283-25

== ENCOUNTER 2020-12-12 04:50 | Emergency (ER) | payer OTHER ==
[2020-12-12] MEDS ORDERED: ACETAMINOPHEN 325 MG TABLET (FP) PO ONE (04:56)
[2020-12-12 05:11] VITALS: BP 122/83; PULSE 73; TEMP 98.2; BMI 26.6
== END 2020-12-12 05:53 | disposition left against medical advice (07) ==
LOC: JER 04:50
DX: M25.561 Pain in right knee (principal); F60.9 Personality disorder, unspecified; Z76.5 Malingerer [conscious simulation]
CPT/HCPCS: 99283-25

== ENCOUNTER 2021-01-08 09:45 | Emergency (ER) | payer OTHER ==
[2021-01-08 10:26] VITALS: BP 124/62; PULSE 90; TEMP 98.1; BMI 22.6
[2021-01-08] MEDS ORDERED: KETOROLAC TROMETHAMINE 30 MG/1 ML VIAL IM ONE (11:30)
[2021-01-08] MEDS ORDERED: KETOROLAC TROMETHAMINE 30 MG/1 ML VIAL ONE (11:30)
== END 2021-01-08 11:39 | disposition home or self-care (01) ==
LOC: JERFT 09:45
PROC: 3E0233Z Introduction of Anti-inflammatory into Muscle, Percutaneous Approach (ICD-10-PCS; principal; 2021-01-08)
DX: M54.50 Low back pain, unspecified (principal)
CPT/HCPCS: 96372; 99284-25

== ENCOUNTER 2021-01-09 20:15 | Emergency (ER) | payer OTHER ==
[2021-01-09 20:27] VITALS: BP 117/70; PULSE 82; TEMP 97.7; BMI 25.8
[2021-01-09] MEDS ORDERED: ALBUTEROL SO4 HFA INHALER IH ONE ×2 (21:18→21:25)
[2021-01-09] MEDS ORDERED: ACETAMINOPHEN 500 MG TABLET (FP) PO ONE (21:18)
[2021-01-09] MEDS ORDERED: ACETAMINOPHEN 500 MG TABLET (FP) ONE (21:25)
== END 2021-01-09 21:34 | disposition home or self-care (01) ==
LOC: JERFT 20:15
DX: J45.909 Unspecified asthma, uncomplicated (principal)
CPT/HCPCS: 99283-25

== ENCOUNTER 2021-01-12 18:10 | Emergency (ER) | payer OTHER ==
[2021-01-12 18:36] VITALS: BP 128/74; PULSE 88; TEMP 97.8; BMI 26.6
== END 2021-01-12 20:13 | disposition home or self-care (01) ==
LOC: JERFT 18:10
DX: R46.0 Very low level of personal hygiene (principal)
CPT/HCPCS: 99283-25

== ENCOUNTER → 2021-01-17 | Emergency (ER) | payer OTHER ==
[2021-01-17 00:38] VITALS: BP 135/76; PULSE 97; TEMP 97.9; BMI 24.2
== END | disposition home or self-care (01) ==
LOC: JER 00:32
DX: R23.1 Pallor (principal); T69.9XXA Effect of reduced temperature, unspecified, initial encounter
CPT/HCPCS: 99283-25

== ENCOUNTER 2021-02-23 11:18 | Emergency (ER) | payer OTHER ==
[2021-02-23 11:31] VITALS: BP 149/82; PULSE 105; TEMP 98.3; BMI 19.3
== END 2021-02-23 12:38 | disposition home or self-care (01) ==
LOC: JERFT 11:18
DX: M54.9 Dorsalgia, unspecified (principal)
CPT/HCPCS: 99283-25

== ENCOUNTER 2021-05-01 12:42 | Emergency (ER) | payer OTHER ==
[2021-05-01 13:06] VITALS: BP 150/81; PULSE 94; TEMP 98; BMI 25.0
[2021-05-01] MEDS ORDERED: ACETAMINOPHEN 500 MG TABLET (FP) PO ONE (13:34)
[2021-05-01] MEDS ORDERED: ACETAMINOPHEN 500 MG TABLET (FP) ONE (13:46)
== END 2021-05-01 14:18 | disposition home or self-care (01) ==
LOC: JERFT 12:42
DX: M79.671 Pain in right foot (principal)
CPT/HCPCS: 73630-TC-RT-FY; 99283-25

== ENCOUNTER 2021-05-05 10:05 | Emergency (ER) | payer OTHER ==
[2021-05-05 10:19] VITALS: BP 109/68; PULSE 122; TEMP 97.8; BMI 18.0
== END 2021-05-05 18:00 | disposition home or self-care (01) ==
LOC: JER 10:05
DX: M25.572 Pain in left ankle and joints of left foot (principal)
CPT/HCPCS: 99283-25

== ENCOUNTER 2021-05-10 08:36 | Emergency (ER) | payer OTHER ==
[2021-05-10 09:20] VITALS: BP 119/52; PULSE 97; TEMP 98.5; BMI 18.4
== END 2021-05-10 11:22 | disposition home or self-care (01) ==
LOC: JER 08:36
DX: R05.1 Acute cough (principal)
CPT/HCPCS: 99281-25

== ENCOUNTER 2021-06-01 11:36 | Emergency (ER) | payer OTHER ==
[2021-06-01 11:46] VITALS: BP 117/59; PULSE 85; TEMP 97.9; BMI 21.1
[2021-06-01] MEDS ORDERED: ALBUTEROL SO4 HFA INHALER IH ONE ×2 (12:47→13:21)
[2021-06-01] MEDS ORDERED: guaiFENesin/D-METHORPHAN HB 10 ML UNIT-DOSE CUPS PO ONE (12:47)
[2021-06-01] MEDS ORDERED: FLUTICASONE PROP 0.05% 16 GM NASAL SPRAY NS ONE (12:47)
[2021-06-01] MEDS ORDERED: guaiFENesin/D-METHORPHAN HB 10 ML UNIT-DOSE CUPS ONE (13:24)
== END 2021-06-01 14:55 | disposition home or self-care (01) ==
LOC: JER 11:36
DX: R05.1 Acute cough (principal); R09.81 Nasal congestion
CPT/HCPCS: 99283-25

== ENCOUNTER 2021-06-16 13:46 | Emergency (ER) | payer OTHER ==
[2021-06-16 14:01] VITALS: BP 151/70; PULSE 98; TEMP 98.4; BMI 23.0
== END 2021-06-16 15:28 | disposition home or self-care (01) ==
LOC: JERFT 13:46 → JER 13:46 → JERFT 15:28
DX: M25.561 Pain in right knee (principal); M25.562 Pain in left knee; R32 Unspecified urinary incontinence
CPT/HCPCS: 99282-25

== ENCOUNTER 2021-07-01 10:51 | Emergency (ER) | payer OTHER ==
[2021-07-01 11:07] VITALS: BP 110/58; PULSE 108; TEMP 98.2; BMI 20.5
[2021-07-01] MEDS ORDERED: ALBUTEROL SO4 2.5/IPRATROPIUM 0.5 INH SOL 3 ML VIAL.NEB. NEB ONE ×2 (12:25→12:49)
[2021-07-01 13:24] LABS: WHITE BLOOD COUNT 12.5 K/mm3 (4.0-10.0)
[2021-07-01 13:25] LABS: BASO % 0.2 % (0-2.0); EOS % 1.4 % (0-4.5); HEMATOCRIT 31.1 % (35.4-49); HEMOGLOBIN 10.5 GM/dL (11.7-16.9); LYMPH % 12.3 % (8-40); MCH 32.6 pg (25.7-33.7); MCHC 33.6 g/dl (32.0-35.9); MEAN CELL VOLUME 96.9 fl (80-96); MEAN PLT VOLUME 8.5 fl (7.5-11.1); MONO % 8.7 % (3.8-10.2); NEUT % 77.4 % (42.8-82.8); RBC 3.21 M/mm3 (4.00-5.60); RDW 18.2 % (11.9-15.9)
[2021-07-01 13:33] LABS: BLOOD UREA NITROGEN 24.9 mg/dL (7-18); CALCIUM 8.1 mg/dL (8.5-10.1)
[2021-07-01 13:37] LABS: CREATININE 2.4 mg/dL (0.55-1.3)
[2021-07-01 14:16] LABS: PLATELET COUNT 250 10^3/uL (134-434)
[2021-07-02 14:13] LABS: SARS-CoV-2 NAA Not Detected (Not Detected)
== END 2021-07-01 15:49 | disposition home or self-care (01) ==
LOC: JER 10:51
PROC: 3E0F7GC Introduction of Other Therapeutic Substance into Respiratory Tract, Via Natural or Artificial Opening (ICD-10-PCS; principal; 2021-07-01)
DX: R05.9 Cough, unspecified (principal)
CPT/HCPCS: 36415; 71046-TC-FY; 80048; 85025; 87804; 99284-25; C9803-CS; U0003; U0005

== ENCOUNTER 2021-08-17 09:26 | Emergency (ER) | payer OTHER ==
[2021-08-17 09:44] VITALS: BP 121/73; PULSE 91; TEMP 97.8; BMI 25.0
== END 2021-08-17 10:10 | disposition home or self-care (01) ==
LOC: JERFT 09:26
DX: R21 Rash and other nonspecific skin eruption (principal)
CPT/HCPCS: 99281-25

== ENCOUNTER 2021-08-17 22:29 | Emergency (ER) | payer OTHER ==
[2021-08-17 22:35] VITALS: BP 154/90; PULSE 85; TEMP 98; BMI 25.0
[2021-08-18] MEDS ORDERED: ONDANSETRON *ODT* 4 MG TABLET SL ONE (00:41)
[2021-08-18] MEDS ORDERED: ONDANSETRON *ODT* 4 MG TABLET ONE (00:54)
== END 2021-08-18 01:46 | disposition left against medical advice (07) ==
LOC: JER 22:29
DX: R10.9 Unspecified abdominal pain (principal)
CPT/HCPCS: 93005; 93010; 99283-25; Q0162

== ENCOUNTER 2021-08-18 12:47 | Observation (INO) | payer OTHER ==
[2021-08-18 13:14] VITALS: BMI 23.5
[2021-08-18] MEDS ORDERED: SODIUM CHLORIDE 1,000 ML IV STA ×2 (15:09→18:20)
[2021-08-18] MEDS ORDERED: ACETAMINOPHEN 1000 MG/100 ML BAG IVPB ONE (15:09)
[2021-08-18] MEDS ORDERED: ONDANSETRON 4 MG/2 ML VIAL IVPUSH ONE (15:16)
[2021-08-18] MEDS ORDERED: ONDANSETRON 4 MG TABLET PO ONE ×2 (15:23→16:29)
[2021-08-18] MEDS ORDERED: ACETAMINOPHEN 500 MG TABLET (FP) PO ONE (15:24)
[2021-08-18] MEDS ORDERED: ACETAMINOPHEN 325 MG TABLET (FP) ONE (16:26)
[2021-08-18] MEDS ORDERED: ONDANSETRON *ODT* 4 MG TABLET ONE (16:26)
[2021-08-18 16:45] LABS: HEMATOCRIT 40.8 % (35.4-49); HEMOGLOBIN 13.7 GM/dL (11.7-16.9); MCH 32.1 pg (25.7-33.7); MCHC 33.6 g/dl (32.0-35.9); MEAN CELL VOLUME 95.4 fl (80-96); MEAN PLT VOLUME 9.4 fl (7.5-11.1); PLATELET COUNT 260 10^3/uL (134-434); RBC 4.27 M/mm3 (4.00-5.60); RDW 17.5 % (11.9-15.9); WHITE BLOOD COUNT 19.5 K/mm3 (4.0-10.0)
[2021-08-18 17:04] LABS: ALBUMIN 3.2 g/dl (3.4-5.0); BLOOD UREA NITROGEN 36.5 mg/dL (7-18); CALCIUM 8.6 mg/dL (8.5-10.1)
[2021-08-18 17:08] LABS: BILIRUBIN,TOTAL 0.4 mg/dL (0.2-1); CREATININE 2.9 mg/dL (0.55-1.3); TOT PROT 7.1 g/dl (6.4-8.2)
[2021-08-18 17:44] LABS: PLATELET ESTIMATE NORMAL
[2021-08-18] MEDS ORDERED: VANCOMYCIN 1,000 MG in DEXTROSE 5%-WATER - 250 ML IVPB ONE (18:33)
[2021-08-18] MEDS ORDERED: MEROPENEM 1 GM in DEXTROSE 5%-WATER 100 ML IVPB ONE (18:49)
[2021-08-18] MEDS ORDERED: SODIUM CHLORIDE 0.9% 500 ML INFUS.BAG IV ONE (18:59)
[2021-08-18 21:43] LABS: INR 1.31 (0.83-1.09); PROTHROMBIN TIME (PATIENT) 15.1 SEC (9.7-13.0)
[2021-08-18 21:46] LABS: ACTIVATED PTT 38.2 SECONDS (25.2-36.5)
[2021-08-18 22:03] LABS: LACTIC ACID 2.7 mmol/L (0.4-2.0)
[2021-08-18] MEDS ORDERED: VANCOMYCIN 1 GRAM (PRE-DOCKED) 1,000 MG/250 ML BAG IVPB ONE (23:27)
[2021-08-18] MEDS ORDERED: HYDROmorphone HCL CARPU-JECT 2 MG/1 ML DISP.SYRIN IVPUSH ONE (23:38)
[2021-08-19] MEDS ORDERED: HYDROmorphone HCl 2 MG/ML VIAL ONE (00:30)
[2021-08-19] MEDS ORDERED: ONDANSETRON 4 MG/2 ML VIAL IVPUSH ONE (00:53)
[2021-08-19 00:54] VITALS: BP 102/54; PULSE 83; TEMP 97.4
[2021-08-19] MEDS ORDERED: MEROPENEM 1 GM VIAL (RESTRICTED TO ID) IVPB ONE (01:44)
[2021-08-19] MEDS ORDERED: ONDANSETRON 4 MG/2 ML VIAL ONE (01:44)
== END 2021-08-19 04:35 | disposition short-term general hospital (02) ==
LOC: JER 12:47 → JERBED 21:03
PROVIDERS: ADMIT Internal Medicine; ATTEND Internal Medicine
PROC: 3E033NZ Introduction of Analgesics, Hypnotics, Sedatives into Peripheral Vein, Percutaneous Approach (ICD-10-PCS; principal; 2021-08-18)
PROC: 3E033NZ Introduction of Analgesics, Hypnotics, Sedatives into Peripheral Vein, Percutaneous Approach (ICD-10-PCS; 2021-08-18)
PROC: 3E03329 Introduction of Other Anti-infective into Peripheral Vein, Percutaneous Approach (ICD-10-PCS; 2021-08-18)
DX: K66.8 Other specified disorders of peritoneum (principal); G89.29 Other chronic pain; J44.9 Chronic obstructive pulmonary disease, unspecified; Z59.00 Homelessness unspecified; M25.569 Pain in unspecified knee; Z99.89 Dependence on other enabling machines and devices; F31.9 Bipolar disorder, unspecified; N18.9 Chronic kidney disease, unspecified; Z88.0 Allergy status to penicillin; Z88.6 Allergy status to analgesic agent; F17.210 Nicotine dependence, cigarettes, uncomplicated; F41.9 Anxiety disorder, unspecified; R10.84 Generalized abdominal pain
CPT/HCPCS: 36415; 71046-TC-FY; 74176-TC; 80053; 82553; 83605; 83690; 85025; 85610; 85730; 86850; 86900; 86901; 87040; 93005; 93010; 96361; 96365; 96367; 96375; 96376; 99285-25; C9803-CS; G0378; U0003; U0005

== ENCOUNTER 2021-10-14 18:53 | Emergency (ER) | payer OTHER ==
[2021-10-14 19:24] VITALS: BP 116/66; PULSE 96; RESP 19; TEMP 97.9; BMI 20.7
[2021-10-14] MEDS ORDERED: KETOROLAC TROMETHAMINE 15 MG/ML VIAL IM ONE ×2 (19:59→20:17)
[2021-10-14] MEDS ORDERED: ACETAMINOPHEN 500 MG TABLET (FP) PO ONE (20:04)
[2021-10-14] MEDS ORDERED: ACETAMINOPHEN 500 MG TABLET (FP) ONE (20:07)
[2021-10-14] MEDS ORDERED: KETOROLAC TROMETHAMINE 15 MG/ML VIAL ONE (20:18)
== END 2021-10-14 20:52 | disposition home or self-care (01) ==
LOC: JERFT 18:53
PROC: 3E0233Z Introduction of Anti-inflammatory into Muscle, Percutaneous Approach (ICD-10-PCS; principal; 2021-10-14)
DX: M25.561 Pain in right knee (principal); G89.29 Other chronic pain
CPT/HCPCS: 99284-25

== ENCOUNTER 2021-10-23 03:00 | Emergency (ER) | payer OTHER ==
[2021-10-23 03:19] VITALS: BP 124/73; PULSE 95; RESP 20; TEMP 98.2; BMI 20.3
== END 2021-10-23 04:58 | disposition home or self-care (01) ==
LOC: JER 03:00
DX: R11.0 Nausea (principal)
CPT/HCPCS: 93005; 93010; 99281-25

== ENCOUNTER 2021-11-17 02:41 | Emergency (ER) | payer OTHER ==
[2021-11-17 02:46] VITALS: BP 112/74; PULSE 87; RESP 18; TEMP 97.6; BMI 26.6
[2021-11-17] MEDS ORDERED: ACETAMINOPHEN 1000 MG/100 ML BAG IVPB ONE (04:28)
[2021-11-17] MEDS ORDERED: ACETAMINOPHEN INJECTION 100 ML IVPB ONE (04:39)
== END 2021-11-17 07:53 | disposition left against medical advice (07) ==
LOC: JER 02:41
DX: R10.9 Unspecified abdominal pain (principal)
CPT/HCPCS: 99283-25

== ENCOUNTER 2021-11-27 09:12 | Emergency (ER) | payer OTHER ==
[2021-11-27 09:29] VITALS: BP 117/50; PULSE 72; RESP 17; TEMP 97.9; BMI 24.3
== END 2021-11-27 10:30 | disposition left against medical advice (07) ==
LOC: JERFT 09:12
DX: M25.561 Pain in right knee (principal)
CPT/HCPCS: 99281-25

== ENCOUNTER 2021-12-02 02:32 | Emergency (ER) | payer OTHER ==
[2021-12-02 04:21] VITALS: BP 122/58; PULSE 94; RESP 18; TEMP 98; BMI 24.1
== END 2021-12-02 07:00 | disposition home or self-care (01) ==
LOC: JER 02:32
DX: M79.674 Pain in right toe(s) (principal); M79.675 Pain in left toe(s)
CPT/HCPCS: 99283-25